=== PATIENT | female | born 1935 | race Two or more races ===

== ENCOUNTER 2020-08-31 19:25 | Emergency (ER) | payer MEDICARE, OTHER ==
[~2020-08-31] VITALS: Ht 157.5 cm; Wt 69.9 kg
--- NOTE | 2020-08-31 19:30 | NUR ---
PT WAS BIBRA FROM AN AL FOR C/O LOWER ABD PAIN AND DYSURIA. PT WAS TRANSFERRED TO BED 2. PLACED ON A MONITOR, VSS. WILL CONT TO MONITOR ,
[2020-08-31] MEDS ORDERED: METF-440 PO (19:45)
[2020-08-31] MEDS ORDERED: CARB-93 PO (19:45)
[2020-08-31] MEDS ORDERED: ASPI-1420 PO (19:45)
[2020-08-31] MEDS ORDERED: MEMA10TA PO (19:45)
[2020-08-31] MEDS ORDERED: FENO145T21 PO (19:45)
[2020-08-31] MEDS ORDERED: ALLO300T2 PO (19:45)
[2020-08-31] MEDS ORDERED: GLIM2TAB31 PO (19:45)
[2020-08-31] MEDS ORDERED: METO25TA6 PO (19:45)
[2020-08-31] MEDS ORDERED: DONE10TA44 PO (19:45)
[2020-08-31] MEDS ORDERED: SIMV-46 PO (19:45)
[2020-08-31] MEDS ORDERED: VALS1TAB4 PO (19:45)
[2020-08-31] MEDS ORDERED: ACETAMINOPHEN ES 500 MG TABLET ONE (19:53)
[2020-08-31] MEDS ORDERED: IV NS 0.9% 1,000 ML BAG IV ONE (20:00)
[2020-08-31] MEDS ORDERED: ACETAMINOPHEN ES 500 MG TABLET PO ONE (20:00)
[2020-08-31 20:05] LABS: BASOPHILS % (AUTO) 0.3 % (0.0-2.0); HEMATOCRIT 39 % (33-45); LYMPHOCYTES # (AUTO) 0.8 /CMM (0.8-4.8); LYMPHOCYTES % (AUTO) 7.9 % (20.0-44.0); MEAN CORPUSCULAR HGB CONC 34 g/dl (31.0-36.0); MEAN CORPUSCULAR VOLUME 91 fL (82-100); MONOCYTES # (AUTO) 0.9 /CMM (0.1-1.30); MONOCYTES % (AUTO) 8.7 % (2.0-12.0); NEUTROPHILS # (AUTO) 8.1 /CMM (1.8-8.9); NEUTROPHILS % (AUTO) 82.1 % (43.0-81.0); PLATELET COUNT (AUTO) 202 /CMM (150-450); RED BLOOD CELL COUNT(AUTO) 4.25 MIL/uL (4.0-5.2); WHITE BLOOD COUNT (AUTO) 9.9 K/uL (4.3-11.0)
--- NOTE | 2020-08-31 20:05 | NUR ---
X RAY AT BED SIDE
[2020-08-31 20:08] LABS: BILIRUBIN,URINE Negative (NEGATIVE); BLOOD, URINE Trace-lysed Ery/uL (NEGATIVE); COLOR,URINE Yellow (YELLOW); LEUKOCYTE ESTERASE ,URINE Small (NEGATIVE); NITRITE, URINE Positive (NEGATIVE); PH,URINE 5.5 (5.0-8.0); PROTEIN,URINE 30 mg/dl (NEGATIVE); UGLUCOSE Negative (NEGATIVE); UROBILINOGEN,URINE 0.2 EU/dL (0.2)
[2020-08-31 20:10] LABS: BACTERIA,URINE 3+ /HPF (None Seen); SQUAMOUS EPITHELIAL CELL,UR Few /HPF (None Seen)
[2020-08-31] MEDS ORDERED: CEFTRIAXONE 1GM BAG (ER ONLY) 1 GM/50 ML PIGGYBACK IV ONE (20:30)
--- NOTE | 2020-08-31 20:35 | NUR ---
PT PULLED OUT HER IV LINE. NEW PIV STARTED ON L WRIST 20G W. GOOD BLOOD RETURN
--- NOTE | 2020-08-31 20:35 | NUR ---
CALL FROM LAB. RAPID COVID NEGATIVE.
[2020-08-31 20:36] LABS: ALANINE AMINOTRANSFERASE 20 U/L (12-78); ALBUMIN 3.5 g/dL (3.4-5.0); ALKALINE PHOSPHATASE 21 U/L (46-116); ASPARTATE AMINOTRANSFERASE 20 U/L (15-37); BILIRUBIN,DIRECT 0.1 mg/dL (0.0-0.2); BILIRUBIN,TOTAL 0.3 mg/dL (0.2-1.0); CALCIUM, SERUM 9.9 mg/dL (8.5-10.1); CARBON DIOXIDE 29 mmol/L (21-32); CHLORIDE 103 mmol/L (98-107); CREATININE 1.3 mg/dL (0.6-1.3); GLUCOSE 213 mg/dL (74-106); LIPASE 332 U/L (73-393); POTASSIUM 4.3 mmol/L (3.5-5.1); SODIUM SERUM 138 mmol/L (136-145); TOTAL PROTEIN, SERUM 7.4 g/dL (6.4-8.2); UREA NITROGEN, BLOOD 25 mg/dL (7-18)
--- NOTE | 2020-08-31 20:43 | NUR ---
PT'S ID AND INSURANCE CARD GIVEN TO THE [facility] PHONE NUMBER: [phone]
--- NOTE | 2020-08-31 21:07 | NUR ---
CALLED DEVI, GRANDSON. PER HIM, PT LIVES AT HOME W/ FAMILY. DEVI WILL SLEEVE TURNER THE PT.
--- NOTE | 2020-08-31 22:01 | NUR ---
PT IS MEDICALLY STABLE FOR D/C. IV removed. Catheter intact and site benign. Pressure and 4x4 applied to site. No bleeding noted.Patient discharged to home in stable condition. Rx and Written and verbal after care instructions given tot he family who verbalizes understanding of instruction.
[2020-08-31 22:03] VITALS: BP 138/68
== END 2020-08-31 22:04 | disposition home or self-care (01) ==
LOC: ER 19:27
DX: N39.0 Urinary tract infection, site not specified (principal); Z20.828 Contact with and (suspected) exposure to other viral communicable diseases; I10 Essential (primary) hypertension; E11.9 Type 2 diabetes mellitus without complications; Z79.84 Long term (current) use of oral hypoglycemic drugs; Z79.82 Long term (current) use of aspirin; Z79.899 Other long term (current) drug therapy; F03.90 Unspecified dementia, unspecified severity, without behavioral disturbance, psychotic disturbance, mood disturbance, and anxiety
CPT/HCPCS: 36415; 71045; 80048; 80076; 81001; 83690; 84484; 85025; 87077; 87086; 87186; 87426; 96360; 96365; 99284; J0696; J7030; 81000-TC; C9803

== ENCOUNTER 2021-04-02 19:46 | Inpatient (IN) | payer MEDICARE, OTHER ==
[~2021-04-02] VITALS: Ht 165.1 cm; Wt 75.0 kg
[~2021-04-02 19:46] MED LIST: ALLO300T2 PO; ASPI-1420 PO; CARB-93 PO; DONE10TA44 PO; FENO145T21 PO; GLIM2TAB31 PO; MEMA10TA PO; METF-440 PO; METO25TA6 PO; SIMV-46 PO; VALS1TAB4 PO
[2021-04-02] MEDS ORDERED: IV NS 0.9% 1,000 ML BAG IV ONE ×2 (20:00→20:30)
--- NOTE | 2021-04-02 20:00 | NUR ---
PT BIBRA FROM HOME C/O INCREASED LETHARGY AND WEAKNESS. PT FEBRILE ON ARRIVAL. PT AWAKE, SMILING, NONVERBAL. RESPIRATIONS EVEN AND UNLABORED. NO ACUTE DISTRESS NOTED AT THIS TIME. PT PLACED IN GOWN AND ON MONITOR, WILL CONTINUE TO MONITOR
[2021-04-02 20:06] LABS: BASOPHILS % (AUTO) 0.3 % (0.0-2.0); EOSINOPHILS % (AUTO) 0.4 % (0.0-6.0); HEMATOCRIT 32 % (33-45); HEMOGLOBIN 10.7 g/dL (11.5-14.8); LYMPHOCYTES # (AUTO) 0.7 /CMM (0.8-4.8); LYMPHOCYTES % (AUTO) 9.6 % (20.0-44.0); MEAN CORPUSCULAR HGB CONC 34 g/dl (31.0-36.0); MEAN CORPUSCULAR VOLUME 93 fL (82-100); MONOCYTES # (AUTO) 0.5 /CMM (0.1-1.30); MONOCYTES % (AUTO) 7.7 % (2.0-12.0); NEUTROPHILS # (AUTO) 5.8 /CMM (1.8-8.9); PLATELET COUNT (AUTO) 125 /CMM (150-450); RED BLOOD CELL COUNT(AUTO) 3.41 MIL/uL (4.0-5.2)
--- NOTE | 2021-04-02 20:10 | NUR ---
urine collected and sent to the lab
[2021-04-02 20:16] LABS: CALCIUM, SERUM 8.6 mg/dL (8.5-10.1); CARBON DIOXIDE 26 mmol/L (21-32); CHLORIDE 98 mmol/L (98-107); CREATININE 1.6 mg/dL (0.6-1.3); GLUCOSE 244 mg/dL (74-106); POTASSIUM 3.9 mmol/L (3.5-5.1); SODIUM SERUM 134 mmol/L (136-145); UREA NITROGEN, BLOOD 44 mg/dL (7-18)
[2021-04-02 20:22] LABS: ALANINE AMINOTRANSFERASE < 6 U/L (12-78); ALBUMIN 2.6 g/dL (3.4-5.0); ALKALINE PHOSPHATASE 43 U/L (46-116); ASPARTATE AMINOTRANSFERASE 14 U/L (15-37); BILIRUBIN,DIRECT 0.1 mg/dL (0.0-0.2); BILIRUBIN,TOTAL 0.2 mg/dL (0.2-1.0); TOTAL PROTEIN, SERUM 6.9 g/dL (6.4-8.2)
[2021-04-02 20:23] LABS: BILIRUBIN,URINE Negative (NEGATIVE); COLOR,URINE YELLOW (YELLOW); LEUKOCYTE ESTERASE ,URINE Small (NEGATIVE); NITRITE, URINE Negative (NEGATIVE); PROTEIN,URINE 100 mg/dl (NEGATIVE); UGLUCOSE Negative (NEGATIVE); UROBILINOGEN,URINE 0.2 EU/dL (0.2)
--- NOTE | 2021-04-02 20:25 | NUR ---
COVID SWAB COLLECTED, CALLED LAB FOR SHIRRING MACHINE OPERATOR
--- NOTE | 2021-04-02 20:29 | NUR ---
DR. NINO PAGED PER REQUEST
[2021-04-02] MEDS ORDERED: CEFTRIAXONE 1GM BAG (ER ONLY) 1 GM/50 ML PIGGYBACK IV ONE (20:30)
[2021-04-02] MEDS ORDERED: ACETAMINOPHEN ES 500 MG TABLET PO ONE (20:30)
--- NOTE | 2021-04-02 20:31 | NUR ---
ER TALKING TO DR. NINO REGARDING PT ADMISSION.
[2021-04-02] MEDS ORDERED: ACETAMINOPHEN ES 500 MG TABLET ONE (20:32)
[2021-04-02] MEDS ORDERED: CEFTRIAXONE 1GM BAG (ER ONLY) 50 ML IV ONE (20:33)
[2021-04-02 20:45] LABS: BACTERIA,URINE 1+ /HPF (None Seen); SQUAMOUS EPITHELIAL CELL,UR Few /HPF (None Seen)
[2021-04-02] MEDS ORDERED: DEXTROSE 50%-WATER 50 ML DISP.SYRIN IV PRN (21:00)
--- NOTE | 2021-04-02 21:15 | NUR ---
M/S 325-2
--- NOTE | 2021-04-02 21:25 | NUR ---
REPORT CALLED TO M/S MAR MORENO. [facility] TRANSPORT PT TO M/S 325-2
[2021-04-02 21:40] VITALS: BP 115/64
--- NOTE | 2021-04-02 21:45 | NUR ---
PATIENT TAKEN UP TO TELE 325-2 FOR LINDA
--- NOTE | 2021-04-02 21:55 | NUR ---
EIGHT SECTION BLOWERACCOUNT OFFICER NOTES RECEIVED PATIENT AWAKE, PATIENT SPEAKS CHADIAN ONLY, ABLE TO FOLLOW SIMPLE COMMANDS. PER ED, RN, PATIENT'S BASELINE IS OFTEN CONFUSED (PER HER SON DUE TO DEMENTIA). PATIENT STABLE ON 2 LPM VIA NC, NO S/S OF DISTRESS OR SHORTNESS OF BREATH NOTED, SPO2 IS 97%. PATIENT ON TELE, NORMAL SINUS RHYTHM, HEART RATE 64. RIGHT FOREARM #18G INTACT AND FLUSHES WELL. SAFETY MEASURES IN PLACE, CALL LIGHT WITHIN REACH, SIDE RAILS UP X 3, HOB ELEVATED, BED ALARM ON. WILL CONTINUE TO MONITOR. WILL CONTINUE PLAN OF CARE
[2021-04-02] MEDS ORDERED: ONDANSETRON HCL/PF 4 MG/2 ML VIAL IV PRN (22:00)
[2021-04-02] MEDS: SIMVASTATIN 20 MG TABLET PO SCH (22:57)
[2021-04-02] MEDS: BLOOD SUGAR DIAGNOSTIC 1 EACH STRIP IN SCH (22:57)
[2021-04-02] MEDS: INSULIN REGULAR, HUMAN 100 UNIT/ML 3 ML VIAL SQ PRN (22:59)
[2021-04-02] MEDS: ENOXAPARIN SODIUM 30 MG/0.3 ML DISP.SYRIN SQ SCH (23:00)
[2021-04-02] MEDS: IV NS 0.9% 1,000 ML IV PRN (23:03)
[2021-04-03 00:15] VITALS: BP 112/67
[2021-04-03 06:47] LABS: BASOPHILS % (AUTO) 0.3 % (0.0-2.0); EOSINOPHILS % (AUTO) 0.9 % (0.0-6.0); HEMATOCRIT 33 % (33-45); HEMOGLOBIN 10.8 g/dL (11.5-14.8); LYMPHOCYTES % (AUTO) 16.5 % (20.0-44.0); MEAN CORPUSCULAR HGB CONC 32 g/dl (31.0-36.0); MEAN CORPUSCULAR VOLUME 98 fL (82-100); MONOCYTES # (AUTO) 0.5 /CMM (0.1-1.30); MONOCYTES % (AUTO) 7.4 % (2.0-12.0); NEUTROPHILS # (AUTO) 4.6 /CMM (1.8-8.9); NEUTROPHILS % (AUTO) 74.9 % (43.0-81.0); PLATELET COUNT (AUTO) 113 /CMM (150-450); RED BLOOD CELL COUNT(AUTO) 3.43 MIL/uL (4.0-5.2); WHITE BLOOD COUNT (AUTO) 6.2 K/uL (4.3-11.0)
--- NOTE | 2021-04-03 07:00 | NUR ---
ANESTHESIOLOGISTS' ASSISTANT CLOSING NOTES PATIENT RESTING IN BED, PATIENT SPEAKS GERMAN ONLY, ABLE TO FOLLOW SIMPLE COMMANDS. PATIENT APPEARS COMFORTABLE, NO S/S OF PAIN. PATIENT STABLE ON 2 LPM VIA NC, NO S/S OF DISTRESS OR SHORTNESS OF BREATH NOTED. PATIENT ON TELE, NORMAL SINUS RHYTHM, HEART RATE 84. RIGHT FOREARM #18G RUNNING NS @ 75 ML/HR. PATIENT HAS DVT PUMPS ON. MEDICATIONS GIVEN ORDERED. PATIENT NEEDS MET THROUGHOUT SHIFT. SAFETY MEASURES IN PLACE, CALL LIGHT WITHIN REACH, SIDE RAILS UP X 3, HOB ELEVATED, BED ALARM ON. ENDORSE TO DAY SHIFT NURSE FOR CONTINUITY OF CARE.
[2021-04-03 07:06] LABS: CALCIUM, SERUM 8.5 mg/dL (8.5-10.1); CARBON DIOXIDE 24 mmol/L (21-32); CHLORIDE 104 mmol/L (98-107); CREATININE 1.5 mg/dL (0.6-1.3); GLUCOSE 142 mg/dL (74-106); POTASSIUM 4.2 mmol/L (3.5-5.1); SODIUM SERUM 137 mmol/L (136-145); UREA NITROGEN, BLOOD 40 mg/dL (7-18)
[2021-04-03] MEDS: BLOOD SUGAR DIAGNOSTIC 1 EACH STRIP IN SCH ×4 (07:39→22:51)
[2021-04-03 08:00] VITALS: BP 144/73
[2021-04-03] MEDS: PANTOPRAZOLE 40 MG TABLET.DR PO SCH (08:09)
[2021-04-03] MEDS: GLIMEPIRIDE 1 MG TABLET PO SCH (08:11)
[2021-04-03] MEDS: MEMANTINE HCL 5 MG TABLET PO SCH (08:11)
[2021-04-03] MEDS: FENOFIBRATE NANOCRYS (145 MG) 145 MG TABLET PO SCH (08:11)
[2021-04-03] MEDS: DONEPEZIL 5 MG TABLET PO SCH (08:11)
[2021-04-03] MEDS: ASPIRIN EC 81 MG TABLET.DR PO SCH (08:11)
--- NOTE | 2021-04-03 08:11 | NUR ---
WOUND CARE CONSULT: PT PRESENTS WITH LEFT BREASTFOLD RASH, PRESENT ON ADMISSION. RECOMMENDATIONS MADE FOR SKIN PROTECTION. DISCUSSED WITH NURSING STAFF. PT IS INCONTINENT. IN AGREEMENT WITH PLAN OF CARE. Addendum: 04/03/21 at 0812 by IVETT DUFFY WNDNU Amended: Links added.
[2021-04-03] MEDS: ALLOPURINOL 100 MG TABLET PO SCH (08:12)
[2021-04-03] MEDS: CARBIDOPA/LEVODOPA 25/100 MG 1 UDTAB PO SCH ×3 (08:12→16:07)
[2021-04-03] MEDS: VALSARTAN 80 MG TABLET PO SCH (08:13)
[2021-04-03] MEDS: METOPROLOL TARTRATE 25 MG TABLET PO SCH ×2 (08:14→22:18)
[2021-04-03] MEDS: HYDROCHLOROTHIAZIDE 25 MG TABLET PO SCH (08:14)
[2021-04-03] MEDS ORDERED: Z GUARD REMEDY 2 OZ OINT TP PRN (08:30)
[2021-04-03] MEDS ORDERED: METFORMIN 500 MG TABLET PO SCH (09:00)
[2021-04-03] MEDS: CLOTRIMAZOLE 1% 15 GM TUBE TP SCH ×2 (09:49→16:07)
[2021-04-03] MEDS: Z GUARD REMEDY 2 OZ OINT TP SCH (09:49)
[2021-04-03] MEDS: NITROGLYCERIN 0.4 MG/HR PATCH.TD24 TD SCH (10:08)
--- NOTE | 2021-04-03 10:14 | NUR ---
INHALATION THERAPIST NOTE APPLIED NITRO PATCH @ 1012
[2021-04-03] MEDS: ACETAMINOPHEN 325 MG TABLET PO PRN ×2 (11:55→22:15)
--- NOTE | 2021-04-03 11:55 | NUR ---
EXECUTIVE ADMIN NOTE BARCODE WOULD NOT SCAN FOR TYLENOL - GAVE 650MG ACETAMINOPHEN FOR LOW GRADE FEVER - 99.8
[2021-04-03] MEDS: INSULIN REGULAR, HUMAN 100 UNIT/ML 3 ML VIAL SQ PRN (12:15)
[2021-04-03 12:36] VITALS: BP 142/81
[2021-04-03] MEDS: IV NS 0.9% 1,000 ML IV PRN (12:56)
[2021-04-03 16:02] VITALS: BP 119/77
--- NOTE | 2021-04-03 18:38 | NUR ---
SCREEN WRITER CLOSING NOTES PATIENT CURRENTLY RESTING IN BED, PATIENT SPEAKS PERSIAN ONLY, ABLE TO UNDERSTAND SOME ARABIC AND YES/NO QUESTIONS. A/O X1. ON 2 LPM VIA NC - TOLERATING WELL, NO SOB NOTED. PATIENT ON TELE MONITOR, NORMAL SINUS RHYTHM, HEART RATE 88. IV ACCESS TO RIGHT FOREARM #18 - PATENT AND INTACT - RUNNING NS @ 75 ML/HR. DIET CHANGED TO PUREED - PATIENT WAS NOT CHEWING FOOD. WOUND CARE DONE. SAFETY MEASURES IN PLACE. CALL LIGHT WITHIN REACH. WILL ENDORSE TO MOBILE PAINT SPECIALIST NURSE FOR LINDA.
[2021-04-03 20:00] VITALS: BP 116/62
--- NOTE | 2021-04-03 20:00 | NUR ---
REMEDY DEVELOPER OPENING NOTES PATIENT RESTING IN BED, PATIENT SPEAKS PUERTO RICAN ONLY, ABLE TO FOLLOW SIMPLE COMMANDS. PATIENT APPEARS COMFORTABLE, NO S/S OF PAIN. PATIENT STABLE ON 2 LPM VIA NC, NO S/S OF DISTRESS OR SHORTNESS OF BREATH NOTED. PATIENT ON TELE, NORMAL SINUS RHYTHM WITH PAC'S, HEART RATE 87. RIGHT FOREARM #18G RUNNING NS @ 75 ML/HR. PATIENT HAS DVT PUMPS ON. SAFETY MEASURES IN PLACE, CALL LIGHT WITHIN REACH, SIDE RAILS UP X 3, HOB ELEVATED, BED ALARM ON. WILL CONTINUE TO MONITOR. WILL CONTINUE PLAN OF CARE
[2021-04-03] MEDS ORDERED: CEFTRIAXONE 1 G in IV D5W 50 ML IV SCH (21:00)
[2021-04-03] MEDS ORDERED: CEFTRIAXONE 2 G in IV D5W 50 ML IV SCH (21:00)
[2021-04-03] MEDS: CEFTRIAXONE 2 G in IV D5W 100 ML IV SCH (22:14)
[2021-04-03] MEDS: SIMVASTATIN 20 MG TABLET PO SCH (22:15)
[2021-04-03] MEDS: ENOXAPARIN SODIUM 30 MG/0.3 ML DISP.SYRIN SQ SCH (22:21)
--- NOTE | 2021-04-03 22:41 | NUR ---
FORM SETTER METAL ROAD FORMS NOTES PATIENT'S BLOOD SUGAR IS 51, RECHECKED RIGHT AWAY AND IT WAS 49. GAVE ORANGE JUICE, WILL RECHECK IN 15 MINS
--- NOTE | 2021-04-03 22:56 | NUR ---
BINDER CHAINSTITCH NOTES RECHECKED PATIENT'S BLOOD SUGAR AND IT IS NOW 76. WILL CONTINUE TO MONITOR
[2021-04-04] VITALS (7 sets, daily range): BP systolic 113–152; BP diastolic 58–86
[2021-04-04 06:02] LABS: BASOPHILS % (AUTO) 0.3 % (0.0-2.0); EOSINOPHILS % (AUTO) 1.3 % (0.0-6.0); HEMATOCRIT 29 % (33-45); HEMOGLOBIN 9.9 g/dL (11.5-14.8); LYMPHOCYTES % (AUTO) 15.7 % (20.0-44.0); MEAN CORPUSCULAR HGB CONC 34 g/dl (31.0-36.0); MEAN CORPUSCULAR VOLUME 92 fL (82-100); MONOCYTES # (AUTO) 0.8 /CMM (0.1-1.30); MONOCYTES % (AUTO) 12.5 % (2.0-12.0); NEUTROPHILS # (AUTO) 4.5 /CMM (1.8-8.9); NEUTROPHILS % (AUTO) 70.2 % (43.0-81.0); PLATELET COUNT (AUTO) 152 /CMM (150-450); RED BLOOD CELL COUNT(AUTO) 3.14 MIL/uL (4.0-5.2); WHITE BLOOD COUNT (AUTO) 6.4 K/uL (4.3-11.0)
[2021-04-04 06:17] LABS: ALBUMIN 2.4 g/dL (3.4-5.0); BILIRUBIN,TOTAL 0.2 mg/dL (0.2-1.0); CALCIUM, SERUM 8.4 mg/dL (8.5-10.1); CREATININE 1.1 mg/dL (0.6-1.3); MAGNESIUM 1.9 mg/dL (1.8-2.4); PHOSPHORUS 1.8 mg/dL (2.5-4.9); POTASSIUM 3.5 mmol/L (3.5-5.1); TOTAL PROTEIN, SERUM 6.5 g/dL (6.4-8.2)
--- NOTE | 2021-04-04 06:40 | NUR ---
MS RN NOTES PATIENT'S BLOOD SUGAR IS 49. GAVE ORANGE JUICE, WILL RECHECK AND CONTINUE TO MONITOR
[2021-04-04] MEDS: BLOOD SUGAR DIAGNOSTIC 1 EACH STRIP IN SCH ×4 (06:45→21:09)
[2021-04-04] MEDS: IV NS 0.9% 1,000 ML IV PRN ×2 (06:45→11:35)
--- NOTE | 2021-04-04 06:55 | NUR ---
MS RN NOTE RECHECKED PATIENT'S BLOOD SUGAR. BLOOD SUGAR NOW 79. WILL CONTINUE TO MONITOR
--- NOTE | 2021-04-04 07:05 | NUR ---
NAVAL AIRCREWMAN OPENING NOTES RECEIVED PATIENT AWAKE AND RESTING IN BED, PATIENT ONLY SPEAKS ARMENIA, ABLE TO FOLLOW SIMPLE COMMANDS. PT SHOWS NO SIGNS OF SOB PATIENT IS STABLE ON NC 2 LPM PATIENT IS SINUS RHYTMN WITH WITH PAC AT 76 RIGHT FOREARM . RFA G#18 NS @ 75 ML/HR. PATIENT HAS DVT PUMPS ON. SAFETY MEASURES IN PLACE, CALL LIGHT AND TABLE WITHIN REACH, SIDE RAILS UP X 2, HOB ELEVATED, BED ALARM ON. WILL CONTINUE TO MONITOR. WILL CONTINUE
--- NOTE | 2021-04-04 07:13 | NUR ---
LABORER HOISTING CLOSING NOTES PATIENT RESTING IN BED, PATIENT SPEAKS TRISTANIAN ONLY, ABLE TO FOLLOW SIMPLE COMMANDS. PATIENT APPEARS COMFORTABLE, NO S/S OF PAIN. PATIENT STABLE ON 2 LPM VIA NC, NO S/S OF DISTRESS OR SHORTNESS OF BREATH NOTED. PATIENT ON TELE, SINUS RHYTHM WITH PAC, HEART RATE 67. RIGHT FOREARM #18G RUNNING NS @ 75 ML/HR. PATIENT HAS DVT PUMPS ON. MEDICATIONS GIVEN ORDERED. PATIENT NEEDS MET THROUGHOUT SHIFT. SAFETY MEASURES IN PLACE, CALL LIGHT WITHIN REACH, SIDE RAILS UP X 3, HOB ELEVATED, BED ALARM ON. ENDORSE TO DAY SHIFT NURSE FOR CONTINUITY OF CARE.
--- NOTE | 2021-04-04 07:45 | NUR ---
PT NOTED WITH TEMP OF 99.0 AT THIS TIME. COOLING MEASURES IN PLACE, ICE PACK UNDER ARMS, ROOM KEPT COOL, SHEETS UNCOVERED. WILL CONTINUE TO MONITOR
[2021-04-04] MEDS: PANTOPRAZOLE 40 MG TABLET.DR PO SCH (08:31)
[2021-04-04] MEDS: ACETAMINOPHEN 325 MG TABLET PO PRN ×2 (08:35→21:09)
[2021-04-04] MEDS: ASPIRIN EC 81 MG TABLET.DR PO SCH (08:35)
[2021-04-04] MEDS: DONEPEZIL 5 MG TABLET PO SCH (08:35)
[2021-04-04] MEDS: VALSARTAN 80 MG TABLET PO SCH (08:35)
[2021-04-04] MEDS: CARBIDOPA/LEVODOPA 25/100 MG 1 UDTAB PO SCH ×3 (08:35→16:50)
[2021-04-04] MEDS: FENOFIBRATE NANOCRYS (145 MG) 145 MG TABLET PO SCH (08:35)
[2021-04-04] MEDS: ALLOPURINOL 100 MG TABLET PO SCH (08:35)
--- NOTE | 2021-04-04 08:35 | NUR ---
RECHECKED TEMPERATURE AFTER COOLING MEASURES, TEMP OF 100.2. COOLING MEASURES IN PLACE, ICE PACK IN ARMPIT, ROOM KEPT COOL, SHEETS REMOVED, TYLENOL 650MG PO Q6H PRN FOR FEVER ADMINISTERED AT THIS TIME PER ORDER, WILL CONTINUE TO MONITOR
[2021-04-04] MEDS: HYDROCHLOROTHIAZIDE 25 MG TABLET PO SCH (08:36)
[2021-04-04] MEDS: MEMANTINE HCL 5 MG TABLET PO SCH (08:37)
[2021-04-04] MEDS: GLIMEPIRIDE 1 MG TABLET PO SCH (08:37)
[2021-04-04] MEDS: METOPROLOL TARTRATE 25 MG TABLET PO SCH ×2 (08:37→21:09)
[2021-04-04] MEDS: CLOTRIMAZOLE 1% 15 GM TUBE TP SCH ×2 (08:39→16:51)
[2021-04-04] MEDS: Z GUARD REMEDY 2 OZ OINT TP SCH (08:40)
--- NOTE | 2021-04-04 09:35 | NUR ---
RECHECKED TEMPERATURE AT THIS TIME. TEMP OF 98.9, COOLING MEASURES. COOLING MEASURES IN PLACE, ICE PACK IN ARMPIT, ROOM KEPT COOL, SHEETS REMOVED, TYLENOL 650MG PO Q6H PRN FOR FEVER ADMINISTERED AT THIS TIME PER ORDER, WILL CONTINUE TO MONITOR
[2021-04-04] MEDS: NITROGLYCERIN 0.4 MG/HR PATCH.TD24 TD SCH (10:22)
[2021-04-04] MEDS: POTASSIUM PHOSPHATE MM 5 MMOL in IV NS 0.9% 100 ML IV SCH ×3 (11:39→15:28)
--- NOTE | 2021-04-04 17:45 | NUR ---
BLOOD SUGAR OF 46, DEXTROSE 50ML IV ACHS PRN FOR BLOOD SUGAR = OR < 60 ADMINISTERED. REASSESSED BLOOD SUGAR AT THIS TIME. BLOOD SUGAR OF 179. WILL CONTINUE TO MONITOR
--- NOTE | 2021-04-04 18:08 | NUR ---
PROPERTY CARETAKER CLOSING NOTES PT AWAKE IN BED AT THIS TIME WITH FAMILY AT BEDSIDE. PT REMAINED STABLE THROUGHOUT SHIFT. PT KEPT CLEAN AND DRY.PT REPOSITIONED Q2H AND PRN. WOUND CARE ADMINISTERED.SAFETY PRECAUTIONS IN PLACE AND MAINTAINED AT ALL TIMES. BED IN LOWEST LOCKED POSITION, HOB ELEVATED, SIDE RAILS UP X 2. CALL LIGHT AND TABLE WITHIN REACH. WILL ENDORSE TO ULTRASOUND SPECIALIST NURSE FOR LINDA
--- NOTE | 2021-04-04 20:00 | NUR ---
TRACTOR MECHANIC HELPER OPENING NOTES Patient awake, A&Ox1. Slightly warm to touch -cooling measures in place. No signs of pain or discomfort noted. No signs of distress. Will continue to monitor.
[2021-04-04] MEDS: CEFTRIAXONE 2 G in IV D5W 100 ML IV SCH (20:57)
[2021-04-04] MEDS: SIMVASTATIN 20 MG TABLET PO SCH (21:09)
[2021-04-04] MEDS: ENOXAPARIN SODIUM 30 MG/0.3 ML DISP.SYRIN SQ SCH (21:10)
--- NOTE | 2021-04-04 21:10 | NUR ---
Patient given PRN Tylenol. Pt was seen by nurse moaning, restless, with facial grimacing for a FLACC score of 3. 1 hour after administration, patient was resting in bed comfortably.
--- NOTE | 2021-04-04 22:00 | NUR ---
BS 90, applesauce given as snack prior to sleep.
[2021-04-05] VITALS: BP 123/62
[2021-04-05 04:00] VITALS: BP 132/76
[2021-04-05] MEDS: IV NS 0.9% 1,000 ML IV PRN (06:09)
[2021-04-05 06:44] LABS: BASOPHILS % (AUTO) 0.5 % (0.0-2.0); EOSINOPHILS % (AUTO) 4.1 % (0.0-6.0); HEMATOCRIT 32 % (33-45); HEMOGLOBIN 10.4 g/dL (11.5-14.8); LYMPHOCYTES # (AUTO) 1.4 /CMM (0.8-4.8); LYMPHOCYTES % (AUTO) 18.6 % (20.0-44.0); MEAN CORPUSCULAR HGB CONC 33 g/dl (31.0-36.0); MEAN CORPUSCULAR VOLUME 93 fL (82-100); MONOCYTES # (AUTO) 0.9 /CMM (0.1-1.30); MONOCYTES % (AUTO) 11.7 % (2.0-12.0); NEUTROPHILS # (AUTO) 4.7 /CMM (1.8-8.9); NEUTROPHILS % (AUTO) 65.1 % (43.0-81.0); PLATELET COUNT (AUTO) 192 /CMM (150-450); RED BLOOD CELL COUNT(AUTO) 3.39 MIL/uL (4.0-5.2); WHITE BLOOD COUNT (AUTO) 7.3 K/uL (4.3-11.0)
--- NOTE | 2021-04-05 06:58 | NUR ---
A&Ox1. VSS. No hypo or hyperglycemic reactions noted. Tolerating IV ABX well, no adverse side effects. Safety measures in place. Patient kept safe overnight. Turn q2H kept clean and dry. On monitor showing SR with PACs.
[2021-04-05] MEDS: BLOOD SUGAR DIAGNOSTIC 1 EACH STRIP IN SCH ×4 (07:15→22:26)
--- NOTE | 2021-04-05 07:33 | NUR ---
SOLDER TECHNICIAN OPENING NOTES RECEIVED PATIENT AWAKE AND RESTING IN BED, PATIENT ONLY SPEAKS PRIMARILY MONGOLIAN, BUT ABLE TO FOLLOW SIMPLE COMMANDS. PATIENT IS A/O X1. PATIENT IS BREATHING EVENLY AND NONLABORED SHOWING NO SIGNS OF SOB OR DISTRESS, STABLE ON NC 2 LPM . PATIENT IS SINUS RHYTHM WITH WITH PAC AT 76. IV ACCESS IN PLACE ON RFA G#18 RUNNING NS @ 40 ML/HR. PATIENT HAS DVT PUMPS ON. SAFETY MEASURES IN PLACE, CALL LIGHT AND TABLE WITHIN REACH, SIDE RAILS UP X 2, HOB ELEVATED, BED ALARM ON. WILL CONTINUE TO MONITOR.
[2021-04-05 07:51] LABS: ALBUMIN 2.3 g/dL (3.4-5.0); BILIRUBIN,TOTAL 0.2 mg/dL (0.2-1.0); CALCIUM, SERUM 8.4 mg/dL (8.5-10.1); MAGNESIUM 1.7 mg/dL (1.8-2.4); PHOSPHORUS 2.2 mg/dL (2.5-4.9); POTASSIUM 3.7 mmol/L (3.5-5.1); TOTAL PROTEIN, SERUM 6.8 g/dL (6.4-8.2)
[2021-04-05 08:06] LABS: PTH, INTACT 80 pg/mL (15-65)
[2021-04-05] MEDS: ALLOPURINOL 100 MG TABLET PO SCH (08:14)
[2021-04-05] MEDS: CARBIDOPA/LEVODOPA 25/100 MG 1 UDTAB PO SCH ×3 (08:14→16:28)
[2021-04-05] MEDS: VALSARTAN 80 MG TABLET PO SCH (08:17)
[2021-04-05] MEDS: PANTOPRAZOLE 40 MG TABLET.DR PO SCH (08:17)
[2021-04-05] MEDS: ASPIRIN EC 81 MG TABLET.DR PO SCH (08:18)
[2021-04-05] MEDS: MEMANTINE HCL 5 MG TABLET PO SCH (08:18)
[2021-04-05] MEDS: FENOFIBRATE NANOCRYS (145 MG) 145 MG TABLET PO SCH (08:18)
[2021-04-05] MEDS: METOPROLOL TARTRATE 25 MG TABLET PO SCH ×2 (08:18→21:18)
[2021-04-05] MEDS: HYDROCHLOROTHIAZIDE 25 MG TABLET PO SCH (08:18)
[2021-04-05] MEDS: DONEPEZIL 5 MG TABLET PO SCH (08:18)
[2021-04-05] MEDS: GLIMEPIRIDE 1 MG TABLET PO SCH (08:18)
[2021-04-05] MEDS: Z GUARD REMEDY 2 OZ OINT TP SCH (08:23)
[2021-04-05] MEDS ORDERED: K PHOS NEUTRAL 250 MG TABLET PO ONE (08:30)
[2021-04-05] MEDS ORDERED: MAGNESIUM OXIDE 400 MG TABLET PO ONE (08:30)
[2021-04-05 08:31] VITALS: BP 138/68
[2021-04-05] MEDS: NITROGLYCERIN 0.4 MG/HR PATCH.TD24 TD SCH (08:39)
[2021-04-05] MEDS: CLOTRIMAZOLE 1% 15 GM TUBE TP SCH ×2 (09:39→16:28)
--- NOTE | 2021-04-05 11:00 | NUR ---
RN NOTES PATIENTS BLOOD GLUCOSE WAS 193, 3 UNITS OF INSULIN GIVEN.
[2021-04-05] MEDS: INSULIN REGULAR, HUMAN 100 UNIT/ML 3 ML VIAL SQ PRN ×3 (11:08→22:27)
[2021-04-05 16:09] VITALS: BP 147/76
--- NOTE | 2021-04-05 16:30 | NUR ---
RN NOTES PATIENTS BLOOD GLUCOSE WAS 169, 3 UNITS OF INSULIN GIVEN.
--- NOTE | 2021-04-05 18:35 | NUR ---
MS RN CLOSING NOTES PATIENT AWAKE AND RESTING IN BED, PATIENT SPEAKS PRIMARILY BELARUSIAN, BUT ABLE TO FOLLOW SIMPLE COMMANDS. PATIENT IS A/O X1. PATIENT IS BREATHING EVENLY AND NONLABORED SHOWING NO SIGNS OF SOB OR DISTRESS, STABLE ON NC 2 LPM. IV ACCESS IN PLACE ON RFA G#18 RUNNING NS @ 40 ML/HR. PATIENT HAS DVT PUMPS ON. SAFETY MEASURES IN PLACE, CALL LIGHT AND TABLE WITHIN REACH, SIDE RAILS UP X 2, HOB ELEVATED, BED ALARM ON. WILL ENDORSE TO ONCOMING SHIFT
--- NOTE | 2021-04-05 20:00 | NUR ---
MS RN OPENING NOTES Patient is awake, A&Ox1. Patient does not talk but yells out and laughs frequently without being prompted. No signs of distress. Continue with aspiration and fall precautions. All safety measures in place. HOB >45, bed locked, in lowest position, bed alarm on. IV patent and infusing IV NS at 40cc/hr.
[2021-04-05 20:22] VITALS: BP 141/62
[2021-04-05] MEDS: SIMVASTATIN 20 MG TABLET PO SCH (21:18)
[2021-04-05] MEDS: CEFTRIAXONE 2 G in IV D5W 100 ML IV SCH (21:18)
[2021-04-05] MEDS: ENOXAPARIN SODIUM 30 MG/0.3 ML DISP.SYRIN SQ SCH (21:19)
--- NOTE | 2021-04-05 23:00 | NUR ---
RN NOTES Patient pulled out IV. New IV inserted to L wrist. Taped down and wrapped with kerlix.
--- NOTE | 2021-04-06 06:04 | NUR ---
MS RN CLOSING NOTES Patient is A&Ox1. VSS. Awake most of the night but not in distress. Occasionally pulls of O2 but saturation still at 93-94%, no SOB. Episodes of yelling when touched even softly, laughing at inappropriate times. Treatment to L underbreast done as ordered, much improved since admission photo. Tolerated crushed meds and applesauce as snack. No hypo or hyperglycemic reactions noted. L wrist #22G IV intact and infusing IVF. All safety measures in place. Call light within reach, bed in lowest position, HOB >30, bed brakes on, bed alarm on. Turned q2h, kept clean and dry. All needs met by staff.
[2021-04-06] MEDS: BLOOD SUGAR DIAGNOSTIC 1 EACH STRIP IN SCH ×4 (06:30→22:00)
[2021-04-06 06:55] LABS: BASOPHILS % (AUTO) 0.4 % (0.0-2.0); EOSINOPHILS % (AUTO) 2.7 % (0.0-6.0); HEMATOCRIT 32 % (33-45); HEMOGLOBIN 10.7 g/dL (11.5-14.8); LYMPHOCYTES # (AUTO) 1.5 /CMM (0.8-4.8); LYMPHOCYTES % (AUTO) 17.9 % (20.0-44.0); MEAN CORPUSCULAR HGB CONC 34 g/dl (31.0-36.0); MEAN CORPUSCULAR VOLUME 92 fL (82-100); MONOCYTES # (AUTO) 0.8 /CMM (0.1-1.30); MONOCYTES % (AUTO) 9.7 % (2.0-12.0); NEUTROPHILS # (AUTO) 5.9 /CMM (1.8-8.9); NEUTROPHILS % (AUTO) 69.3 % (43.0-81.0); PLATELET COUNT (AUTO) 236 /CMM (150-450); RED BLOOD CELL COUNT(AUTO) 3.43 MIL/uL (4.0-5.2); WHITE BLOOD COUNT (AUTO) 8.4 K/uL (4.3-11.0)
--- NOTE | 2021-04-06 07:16 | NUR ---
MS RN OPENING NOTES RECEIVED PATIENT AWAKE AND RESTING IN BED, PATIENT ONLY SPEAKS PRIMARILY SPANISH, BUT ABLE TO FOLLOW SIMPLE COMMANDS. PATIENT IS A/O X1. PATIENT IS BREATHING EVENLY AND NONLABORED SHOWING NO SIGNS OF SOB OR DISTRESS, STABLE ON NC 2 LPM. IV ACCESS IN PLACE ON RFA G#18 PATENT AND INTACT. PATIENT HAS DVT PUMPS ON. SAFETY MEASURES IN PLACE, CALL LIGHT AND TABLE WITHIN REACH, SIDE RAILS UP X 2, HOB ELEVATED, BED ALARM ON. WILL CONTINUE TO MONITOR. Addendum: 04/06/21 at 1834 by YASIR JIMENEZ RN IV ACCESS ON L WRIST 22 GAUGE
[2021-04-06 07:28] LABS: CALCIUM, SERUM 8.4 mg/dL (8.5-10.1); CREATININE 0.9 mg/dL (0.6-1.3); MAGNESIUM 1.7 mg/dL (1.8-2.4); PHOSPHORUS 2.5 mg/dL (2.5-4.9); POTASSIUM 4.2 mmol/L (3.5-5.1)
[2021-04-06] MEDS: PANTOPRAZOLE 40 MG TABLET.DR PO SCH (07:52)
[2021-04-06] MEDS: MEMANTINE HCL 5 MG TABLET PO SCH (08:03)
[2021-04-06] MEDS: ASPIRIN EC 81 MG TABLET.DR PO SCH (08:03)
[2021-04-06] MEDS: GLIMEPIRIDE 1 MG TABLET PO SCH (08:03)
[2021-04-06] MEDS: CARBIDOPA/LEVODOPA 25/100 MG 1 UDTAB PO SCH ×3 (08:04→16:30)
[2021-04-06] MEDS: ALLOPURINOL 100 MG TABLET PO SCH (08:04)
[2021-04-06] MEDS: VALSARTAN 80 MG TABLET PO SCH (08:04)
[2021-04-06] MEDS: FENOFIBRATE NANOCRYS (145 MG) 145 MG TABLET PO SCH (08:04)
[2021-04-06] MEDS: DONEPEZIL 5 MG TABLET PO SCH (08:04)
[2021-04-06] MEDS: METOPROLOL TARTRATE 25 MG TABLET PO SCH ×2 (08:05→22:31)
[2021-04-06] MEDS: HYDROCHLOROTHIAZIDE 25 MG TABLET PO SCH (08:05)
[2021-04-06] MEDS: CLOTRIMAZOLE 1% 15 GM TUBE TP SCH ×2 (08:06→16:49)
[2021-04-06] MEDS: Z GUARD REMEDY 2 OZ OINT TP SCH (08:06)
[2021-04-06 08:25] VITALS: BP 130/78
[2021-04-06] MEDS: NITROGLYCERIN 0.4 MG/HR PATCH.TD24 TD SCH (08:30)
[2021-04-06] MEDS: Magnesium 1GM/D5W 100ML PREMIX 100 ML IV SCH ×2 (10:05→11:14)
[2021-04-06] MEDS: IV NS 0.9% 1,000 ML IV PRN (10:15)
--- NOTE | 2021-04-06 11:00 | NUR ---
RN NOTES PATIENTS BLOOD GLUCOSE WAS 131, 2 UNITS OF INSULIN GIVEN.
[2021-04-06] MEDS: INSULIN REGULAR, HUMAN 100 UNIT/ML 3 ML VIAL SQ PRN ×2 (11:15→16:49)
[2021-04-06 14:07] LABS: *SPE A/G RATIO 0.7 (0.7-1.7); *SPE ALBUMIN 2.4 g/dL (2.9-4.4); *SPE ALPHA-1-GLOBULIN 0.3 g/dL (0.0-0.4); *SPE ALPHA-2-GLOBULIN 1.4 g/dL (0.4-1.0); *SPE GLOBULIN, TOTAL 3.3 g/dL (2.2-3.9); *SPE M-SPIKE Not Observed g/dL (Not Observed); *SPEGAMMA GLOBULIN 0.6 g/dL (0.4-1.8)
[2021-04-06 16:26] VITALS: BP 138/67
--- NOTE | 2021-04-06 17:15 | NUR ---
RN NOTES PATIENTS BLOOD GLUCOSE WAS 175, 3 UNITS OF INSULIN GIVEN.
--- NOTE | 2021-04-06 18:33 | NUR ---
MS RN CLOSING NOTES PATIENT AWAKE AND RESTING IN BED, PATIENT SPEAKS PRIMARILY PASHTO, BUT ABLE TO FOLLOW SIMPLE COMMANDS. PATIENT IS A/O X1. PATIENT IS BREATHING EVENLY AND NONLABORED SHOWING NO SIGNS OF SOB OR DISTRESS, STABLE ON NC 2 LPM[address] IV ACCESS IN PLACE ON RFA G#18 RUNNING NS @ 40 ML/HR. ALL MEDICATION GIVEN ORDERED. PATIENT HAS DVT PUMPS ON. SAFETY MEASURES IN PLACE, CALL LIGHT AND TABLE WITHIN REACH, SIDE RAILS UP X 2, HOB ELEVATED, BED ALARM ON. WILL ENDORSE TO ONCOMING SHIFT Addendum: 04/06/21 at 1834 by YASIR JIMENEZ RN IV ACCESS ON L WRIST 22 GAUGE
[2021-04-06 20:00] VITALS: BP 139/79
--- NOTE | 2021-04-06 22:01 | NUR ---
MS RN OPENING NOTES: RECEIVED PATIENT SLEEP IN BED COMFORTABLY, AROUSAVBLE TO VERBAL STIMULI, BED IN LOW POSITION, CALL LIGHTAS WITHIN REACH, NO COMPLAIN OF PAIN AND DISCOMFORT AT THIS TIME, A/O X1, ON BR INCONTINENT, WITH LEFT BREAST REDNESS, ON PUREE DIET CRUSSH MEDICATION, WITH L WRIST IV LINE #22 INFUSING WELL, ON BLOOD SUGAR MONITORING , ON O2 INHALATION AT 98% NO SOB OR ANY RESPIRATORY DISTRESS WAS OBSERVED, HOB AT 30 DEGREE, ALL NEEDS ARE MET, KEPT CLEAN AND DRY, WILL CONTINUE TO MONITOR.
--- NOTE | 2021-04-06 22:22 | NUR ---
MAR NOTES: PATIENT COMPLAIN OF ABDONIMAL PAIN PS-9 DILAUDID GIVEN Addendum: 04/07/21 at 0359 by JORGE TIDWELL RN WRONG DOCUMENTATION FOR PATIENT 323-2 YAMILETH CARBONE
[2021-04-06] MEDS: CEFTRIAXONE 2 G in IV D5W 100 ML IV SCH (22:30)
[2021-04-06] MEDS: SIMVASTATIN 20 MG TABLET PO SCH (22:30)
[2021-04-06] MEDS: ENOXAPARIN SODIUM 30 MG/0.3 ML DISP.SYRIN SQ SCH (22:32)
[2021-04-07] MEDS: INSULIN REGULAR, HUMAN 100 UNIT/ML 3 ML VIAL SQ PRN ×3 (00:02→16:48)
[2021-04-07 06:38] LABS: CALCIUM, SERUM 8.9 mg/dL (8.5-10.1); CREATININE 0.9 mg/dL (0.6-1.3); MAGNESIUM 1.8 mg/dL (1.8-2.4); POTASSIUM 4.4 mmol/L (3.5-5.1)
--- NOTE | 2021-04-07 07:35 | NUR ---
RN CLOSING NOTES: RECEIVED PATIENT SLEEP IN BED COMFORTABLY, AROUSABLE TO STIMULI, NO COMPLAIN OF PAIN AND DISCOMFORT AT THIS TIME ON IV HYDRATION OF 0.96NN@40ML/HR INFUSING WELL, PATIENT TURN FROM SIDE TO SIDE, BED IS IN LOW POSITION, CALL LIGHTS WITHIN REACH, ENDORSE TO INCOMING SHIFT.
--- NOTE | 2021-04-07 07:43 | NUR ---
MS RN OPENING NOTES RECEIVED PATIENT LYING IN BED, RESTING. AROUSES WHEN ANYONE IS SPEAKING. A/O X1. ON 2LPM OXYGEN PER NASAL CANNULA - TOLERATING WELL. NO SOB NOTED. NO PAIN NOTED AT THIS TIME. TOP DENTURE NOTED, BOTTOM DENTURE IN BEDSIDE CONTAINER. IV ACCESS TO LEFT WRIST #22 - INTACT AND WRAPPED WITH KERLIX - RUNNING NS @ 40ML/HR. SAFETY MEASURES IN PLACE. CALL LIGHT WITHIN REACH. WILL CONTINUE TO MONITOR.
[2021-04-07] MEDS: BLOOD SUGAR DIAGNOSTIC 1 EACH STRIP IN SCH ×4 (07:48→22:24)
[2021-04-07 08:00] VITALS: BP 131/63
[2021-04-07] MEDS: PANTOPRAZOLE 40 MG TABLET.DR PO SCH (08:19)
[2021-04-07] MEDS: HYDROCHLOROTHIAZIDE 25 MG TABLET PO SCH (08:46)
[2021-04-07] MEDS: CARBIDOPA/LEVODOPA 25/100 MG 1 UDTAB PO SCH ×3 (08:47→16:36)
[2021-04-07] MEDS: VALSARTAN 80 MG TABLET PO SCH (08:47)
[2021-04-07] MEDS: GLIMEPIRIDE 1 MG TABLET PO SCH (08:47)
[2021-04-07] MEDS: ALLOPURINOL 100 MG TABLET PO SCH (08:47)
[2021-04-07] MEDS: FENOFIBRATE NANOCRYS (145 MG) 145 MG TABLET PO SCH (08:47)
[2021-04-07] MEDS: MEMANTINE HCL 5 MG TABLET PO SCH (08:47)
[2021-04-07] MEDS: ASPIRIN EC 81 MG TABLET.DR PO SCH (08:48)
[2021-04-07] MEDS: METOPROLOL TARTRATE 25 MG TABLET PO SCH ×2 (08:48→21:00)
[2021-04-07] MEDS: NITROGLYCERIN 0.4 MG/HR PATCH.TD24 TD SCH (08:48)
[2021-04-07] MEDS: DONEPEZIL 5 MG TABLET PO SCH (08:48)
[2021-04-07] MEDS: Z GUARD REMEDY 2 OZ OINT TP SCH (08:58)
[2021-04-07] MEDS: CLOTRIMAZOLE 1% 15 GM TUBE TP SCH ×2 (08:58→16:37)
[2021-04-07] MEDS: ACETAMINOPHEN 325 MG TABLET PO PRN (11:49)
[2021-04-07] MEDS: IV NS 0.9% 1,000 ML IV PRN (14:28)
[2021-04-07 16:00] VITALS: BP_SYST 118; BP_SYST 146; BP_DIAS 65; BP_DIAS 97
--- NOTE | 2021-04-07 18:31 | NUR ---
MS RN CLOSING NOTE PATIENT IS CURRENTLY LYING IN BED, AWAKE. AROUSABLE TO VERBAL STIMULI. PATIENT SPEAKS PRIMARILY AZERBAIJANI, BUT ABLE TO FOLLOW SIMPLE COMMANDS IN [place]. A/O X1-2. ON 2 LPM OF OXYGEN VIA NASAL CANNULA - TOLERATING WELL. NO SOB OR DISTRESS. IV ACCESS TO LEFT WRIST #18 - RUNNING NS @ 40 ML/HR. LEFT BREAST DRESSING CHANGED - NO REDNESS NOTED. PATIENT HAS DVT PUMPS ON. POSSIBLE DISCHARGE TOMORROW. SAFETY MEASURES IN PLACE. CALL LIGHT WITHIN REACH. WILL ENDORSE TO FIELD RESEARCH ASSOCIATE NURSE FOR LINDA.
--- NOTE | 2021-04-07 20:00 | NUR ---
MS MAR MENJIVAR NOTES: RECEIVED PATIENT SLEEP IN BED COMFORTABLY, BED IN LOW POSITION, CALL LIGHTS WITHIN REACH, NO COMPLAIN OF PAIN AND SICOMFORT AT THIS TIME, ON IV HYDRATION OF NSS @40ML/HR AT L WRIST G 22 ON PUREEED DIET, PATIENT KEPT CLEAN ANDD RY WILL CONTINUE TO MONITOR.
[2021-04-07 20:27] VITALS: BP 131/62
[2021-04-07] MEDS: CEFTRIAXONE 2 G in IV D5W 100 ML IV SCH (22:04)
[2021-04-07] MEDS: ENOXAPARIN SODIUM 30 MG/0.3 ML DISP.SYRIN SQ SCH (22:05)
[2021-04-07] MEDS: SIMVASTATIN 20 MG TABLET PO SCH (22:05)
--- NOTE | 2021-04-08 06:34 | NUR ---
MS RN CLOSING NOTES; RECEIVED RESIDENT SLEEP IN BED COMFORTABLY, AROUSABLE TO VERBAL AND TACTILE STIMULATION, BED IN LOW POSITION, CALL LIGHTS WITHIN REACH, NO COMPLAIN OF PAIN AND DISCOMFORT AT THIS TIME, ON IV HYDRATION OF 0.9NSS @40ML INFUSING WELL ON L WRIST #22, ON PUREE DIET, ON CRUSH MEDICINE, WITH LEFT BREAST REDNESS TO CLEANSE WITH SOAP AND WATER, DRY AND APPLY Z GUARD OR MEPILEX, PATEINT KEPT CLEAN ANDD RY WILL CONTINUE TO MONITOR.
--- NOTE | 2021-04-08 07:18 | NUR ---
MS RN OPENING NOTES RECEIVED PATIENT AWAKE AND RESTING IN BED, PATIENT ONLY SPEAKS PRIMARILY SYRIAC, BUT ABLE TO FOLLOW SIMPLE COMMANDS. PATIENT IS A/O X1. PATIENT IS BREATHING EVENLY AND NONLABORED SHOWING NO SIGNS OF SOB OR DISTRESS, STABLE ON NC 2 LPM. IV ACCESS IN PLACE ON L WRIST G#22 PATENT AND INTACT RUNNING NS @ 40ML/HR. PATIENT HAS DVT PUMPS ON. SAFETY MEASURES IN PLACE, CALL LIGHT AND TABLE WITHIN REACH, SIDE RAILS UP X 2, HOB ELEVATED, BED ALARM ON. WILL CONTINUE TO MONITOR.
[2021-04-08] MEDS: BLOOD SUGAR DIAGNOSTIC 1 EACH STRIP IN SCH ×2 (07:58→11:07)
[2021-04-08 08:00] VITALS: BP 136/70
[2021-04-08] MEDS: MEMANTINE HCL 5 MG TABLET PO SCH (08:09)
[2021-04-08] MEDS: Z GUARD REMEDY 2 OZ OINT TP SCH (08:09)
[2021-04-08] MEDS: ASPIRIN EC 81 MG TABLET.DR PO SCH (08:09)
[2021-04-08] MEDS: ALLOPURINOL 100 MG TABLET PO SCH (08:09)
[2021-04-08] MEDS: VALSARTAN 80 MG TABLET PO SCH (08:09)
[2021-04-08] MEDS: CLOTRIMAZOLE 1% 15 GM TUBE TP SCH (08:09)
[2021-04-08] MEDS: FENOFIBRATE NANOCRYS (145 MG) 145 MG TABLET PO SCH (08:10)
[2021-04-08] MEDS: HYDROCHLOROTHIAZIDE 25 MG TABLET PO SCH (08:10)
[2021-04-08] MEDS: GLIMEPIRIDE 1 MG TABLET PO SCH (08:10)
[2021-04-08] MEDS: CARBIDOPA/LEVODOPA 25/100 MG 1 UDTAB PO SCH ×2 (08:10→12:02)
[2021-04-08] MEDS: DONEPEZIL 5 MG TABLET PO SCH (08:10)
[2021-04-08] MEDS: METOPROLOL TARTRATE 25 MG TABLET PO SCH (08:10)
[2021-04-08] MEDS: PANTOPRAZOLE 40 MG TABLET.DR PO SCH (08:10)
[2021-04-08] MEDS: NITROGLYCERIN 0.4 MG/HR PATCH.TD24 TD SCH (08:34)
[2021-04-08] MEDS ORDERED: LEVO500T90 PO (09:09)
[2021-04-08] MEDS: INSULIN REGULAR, HUMAN 100 UNIT/ML 3 ML VIAL SQ PRN (11:08)
--- NOTE | 2021-04-08 11:32 | NUR ---
RN NOTE PATIENTS GLUCOSE @ 104, NO INSULIN NEEDED
[2021-04-08 16:08] VITALS: BP 132/67
--- NOTE | 2021-04-08 16:25 | NUR ---
MS CAT HOOKER NOTE RECEIVED ORDER FOR DISCHARGE PATIENT AWAKE AND RESTING IN BED, PATIENT ONLY SPEAKS PRIMARILY CENTRAL AFRICAN, BUT ABLE TO FOLLOW SIMPLE COMMANDS. PATIENT IS A/O X1. PATIENT IS BREATHING EVENLY AND NONLABORED SHOWING NO SIGNS OF SOB OR DISTRESS, STABLE ON ROOM AIR. DISCHARGE INSTRUCTIONS WERE GIVEN TO SON AND GRANDSON VERBALLY AND IN WRITTEN FORM. FAMILY VERBALIZED UNDERSTANDING. PATIENT WILL HAVE IV ACCESS & ID BAND WAS REMOVED. PATIENT LEFT IN STABLE CONDITION VIA PRIVATE CAR WITH CAREGIVER AND SON PRESENT.
== END 2021-04-08 16:36 | disposition home health service (06) | DRG 871 ==
LOC: ER 19:49 → MED 21:26 → TELE 21:40 → MED 04-05 08:44
PROVIDERS: ADMIT Legal Medicine; ATTEND Legal Medicine
DX: A41.51 Sepsis due to Escherichia coli [E. coli] (principal); N17.0 Acute kidney failure with tubular necrosis; I21.A1 Myocardial infarction type 2; N39.0 Urinary tract infection, site not specified; G93.40 Encephalopathy, unspecified; E78.5 Hyperlipidemia, unspecified; E86.0 Dehydration; K21.9 Gastro-esophageal reflux disease without esophagitis; E11.9 Type 2 diabetes mellitus without complications; E83.42 Hypomagnesemia; G20 Parkinson's disease; I25.10 Atherosclerotic heart disease of native coronary artery without angina pectoris; Z87.440 Personal history of urinary (tract) infections; N18.9 Chronic kidney disease, unspecified; I12.9 Hypertensive chronic kidney disease with stage 1 through stage 4 chronic kidney disease, or unspecified chronic kidney disease; E87.70 Fluid overload, unspecified; Z20.822 Contact with and (suspected) exposure to COVID-19
CPT/HCPCS: 36415; 71045-TC; 76770-TC; 80048-TC; 80053-TC; 80076-TC; 81001; 82550-TC; 82962-TC; 83605-TC; 83735-TC; 83970; 84100-TC; 84155; 84165; 84484-TC; 85025-TC; 85730-TC; 87040-TC; 87081-TC; 87086-TC; 87186-TC; 93307-TC; 97112-TC; 97116-TC; 97530-TC; C9803; G0378; J0696; J1650; J1815; J3475; J3490; J7030; J7060

== ENCOUNTER 2022-01-29 09:15 | Inpatient (IN) | payer MEDICARE, OTHER ==
[~2022-01-29] VITALS: Ht 157.5 cm; Wt 63.5 kg
[~2022-01-29 09:15] MED LIST changes: +LEVO500T90 PO
--- NOTE | 2022-01-29 09:21 | NUR ---
BIBRA 38 FROM HOME C/O MORE ALTERED THAN USUAL AND WEAKNESS STARTED YESTERDAY. +VOMITING AND DIARRHEA TODAY. TO ER BED 6, HOOKED TO MONITOR, CHANGED TO HOSP GOWN, WARM, BLANKET PROVIDED. PATIENT AAO x 1. BREATHING EVEN AND UNLABORED. AWAITING MD MEYER
--- NOTE | 2022-01-29 09:25 | NUR ---
DR MILLER AT BEDSIDE
[2022-01-29] MEDS ORDERED: IV NS 0.9% 500 ML BAG IV ONE (09:30)
--- NOTE | 2022-01-29 09:40 | NUR ---
MOVE SHEET SUBMITTED AND CALLED FOR TELE BED.
--- NOTE | 2022-01-29 09:45 | NUR ---
COVID SWAB DONE AND SENT TO LAB
[2022-01-29 09:55] LABS: BASOPHILS % (AUTO) 0.2 % (0.0-2.0); HEMATOCRIT 40 % (33-45); HEMOGLOBIN 13.2 g/dL (11.5-14.8); LYMPHOCYTES # (AUTO) 2.1 K/uL (0.8-4.8); LYMPHOCYTES % (AUTO) 19.5 % (20.0-44.0); MEAN CORPUSCULAR HGB CONC 33 g/dl (31.0-36.0); MEAN CORPUSCULAR VOLUME 95 fL (82-100); MONOCYTES # (AUTO) 0.5 K/uL (0.1-1.30); MONOCYTES % (AUTO) 4.8 % (2.0-12.0); NEUTROPHILS # (AUTO) 7.8 K/uL (1.8-8.9); NEUTROPHILS % (AUTO) 73.5 % (43.0-81.0); PLATELET COUNT (AUTO) 205 K/uL (150-450); RED BLOOD CELL COUNT(AUTO) 4.24 MIL/uL (4.0-5.2); WHITE BLOOD COUNT (AUTO) 10.6 K/uL (4.3-11.0)
[2022-01-29 10:21] LABS: CALCIUM, SERUM 9.2 mg/dL (8.5-10.1); CARBON DIOXIDE 25 mmol/L (21-32); CHLORIDE 106 mmol/L (98-107); CREATININE 1.3 mg/dL (0.6-1.3); GLUCOSE 120 mg/dL (74-106); POTASSIUM 4.5 mmol/L (3.5-5.1); SODIUM SERUM 140 mmol/L (136-145); UREA NITROGEN, BLOOD 39 mg/dL (7-18)
[2022-01-29 10:26] LABS: ALANINE AMINOTRANSFERASE 14 U/L (12-78); ALBUMIN 3.6 g/dL (3.4-5.0); ALKALINE PHOSPHATASE 29 U/L (46-116); ASPARTATE AMINOTRANSFERASE 20 U/L (15-37); BILIRUBIN,DIRECT 0.1 mg/dL (0.0-0.2); BILIRUBIN,TOTAL 0.3 mg/dL (0.2-1.0); TOTAL PROTEIN, SERUM 7.4 g/dL (6.4-8.2)
--- NOTE | 2022-01-29 11:02 | NUR ---
DEVI (GRAND SON) [phone]
[2022-01-29] MEDS ORDERED: IV NS 0.9% 250 ML IV ONE (11:10)
[2022-01-29] MEDS ORDERED: IOHEXOL-300 100 ML VIAL IV ONE (11:10)
[2022-01-29] MEDS ORDERED: CT SWABBABLE VALVE TRANS SET 1 EA INFUS.SET MC ONE (11:10)
--- NOTE | 2022-01-29 11:38 | NUR ---
URINE SAMPLE COLLECTED VIA MESSER CATHETER AND SENT TO LAB
--- NOTE | 2022-01-29 11:41 | NUR ---
CALLED DR. NINO [phone] WILL CALL US BACK.
[2022-01-29 12:10] LABS: BILIRUBIN,URINE NEGATIVE (NEGATIVE); COLOR,URINE YELLOW (YELLOW); LEUKOCYTE ESTERASE ,URINE NEGATIVE (NEGATIVE); NITRITE, URINE NEGATIVE (NEGATIVE); PROTEIN,URINE NEGATIVE (NEGATIVE); UGLUCOSE NEGATIVE (NEGATIVE); UROBILINOGEN,URINE 0.2 EU/dL (0.2)
[2022-01-29] MEDS ORDERED: ONDANSETRON HCL/PF 4 MG/2 ML VIAL IVP PRN (12:30)
[2022-01-29] MEDS ORDERED: ACETAMINOPHEN 325 MG TABLET PO PRN (12:30)
[2022-01-29] MEDS ORDERED: MAG HYDROX/AL HYDROX/SIMETH 30 ML UDC PO PRN (12:30)
[2022-01-29] MEDS ORDERED: Z GUARD REMEDY 4 OZ OINT TP PRN (12:30)
[2022-01-29] MEDS ORDERED: MAGNESIUM HYDROXIDE 30 ML UDC PO PRN (12:30)
[2022-01-29 12:45] LABS: BACTERIA,URINE None seen /HPF (None Seen); RBC,URINE 0-2 /HPF (0-2); SQUAMOUS EPITHELIAL CELL,UR Few /HPF (None Seen); WBC,URINE 0-2 /HPF (0-3)
--- NOTE | 2022-01-29 13:19 | NUR ---
GOT BED 324-2
--- NOTE | 2022-01-29 13:35 | NUR ---
REPORT GIVEN TO LILY MANUEL OF TELE UNIT
--- NOTE | 2022-01-29 14:00 | NUR ---
MEDIC TECHNICIAN ADMITTING NOTE ADMITTED PATIENT TO BED 324-2 [place]IA [place]. PATIENT A/O X 1 TO NAME ONLY, COMMUNICATES NON-INTELLIGIBLE SOUNDS, MESSER CATH DRAINING CLEAR YELLOW URINE TO GRAVITY. TELE MONITOR APPLIED READING A-FIB 110. R AC # 20 INTACT, PATENT, FLUSHING WELL WITH IV CEFTRIAXONE AT 100 ML/HR. SKIN INTACT. PATIENT TOLERATING WELL ON ROOM AIR WITH NO S/S OF RESPIRATORY DISTRESS. BREATHING EVEN AND UNLABORED. NO COMPLAINTS OF PAIN OR DISCOMFORT AT THIS TIME. WILL CONTINUE TO MONITOR.
[2022-01-29] MEDS: CARBIDOPA/LEVODOPA 25/100 MG 1 UDTAB PO SCH ×2 (14:35→16:55)
[2022-01-29] MEDS: ENOXAPARIN SODIUM 30 MG/0.3 ML DISP.SYRIN SQ SCH (14:36)
[2022-01-29] MEDS: CEFTRIAXONE 1 G in IV D5W 50 ML IV SCH (15:39)
[2022-01-29] MEDS: METOPROLOL TARTRATE 25 MG TABLET PO SCH (16:55)
--- NOTE | 2022-01-29 19:00 | NUR ---
RN CLOSING NOTE PATIENT LAYING IN BED, A/O X 1, MESSER CATH DRAINING CLEAR YELLOW URINE TO GRAVITY. TELE MONITOR READING A-FIB 98. R AC #20 INTACT, PATENT, FLUSHING WELL WITH NS @ 75 ML/HR. PATIENT TOLERATING WELL ON ROOM AIR WITH NO S/S OF RESPIRATORY DISTRESS. BREATHING EVEN AND UNLABORED ON ROOM AIR. NO COMPLAINTS OF PAIN OR DISCOMFORT AT THIS TIME. LEFT WITH SON AND GRANDSON AND CALLBACK NUMBER PROVIDED FOR UNIT, TO OBTAIN ADDITIONAL PATIENT MEDICAL HISTORY FOR ADMISSION. OPERATOR CATALYST CONCENTRATION MADE AWARE. WILL ENDORSE TO OPERATOR CATALYST CONCENTRATION FOR LINDA.
--- NOTE | 2022-01-29 19:15 | NUR ---
SUPERVISOR SHOP OPENING NOTES RECEIVED PATIENT LAYING AWAKE IN BED. A/O X1. PATIENT WITH REGULAR AND UNLABORED BREATHING ON ROOM AIR, TOLERATED WELL. NO SIGNS AND SYMPTOMS OF DISTRESS NOTED. NO COMPLAINS OF PAIN OR DISCOMFORT AT THIS TIME. PATIENT ON TELE MONITOR READING A-FIB @ 101 BPM. IV ACCESS RAC G #20 INFUSING D5 1/2NS @ 75 ML/HR. IV ACCESS PATENT AND INTACT. SAFETY PRECAUTIONS ENFORCED WITH BED LOCKED AND AT LOWEST POSITION. SIDE RAILS UP X2. CALL LIGHT WITHIN REACH AT ALL TIMES. WILL CONTINUE TO MONITOR PATIENT.
[2022-01-29 20:00] VITALS: BP 119/84
[2022-01-29] MEDS: SIMVASTATIN 20 MG TABLET PO SCH (21:19)
[2022-01-30] VITALS: BP 136/86
[2022-01-30 04:00] VITALS: BP 139/61
[2022-01-30] MEDS: IV D5/0.45 NACL 1,000 ML IV PRN (06:13)
--- NOTE | 2022-01-30 06:47 | NUR ---
OCCUPATIONAL THERAPY INSTRUCTOR CLOSING NOTES PATIENT STILL LAYING AWAKE IN BED. A/O X1. PATIENT WITH REGULAR AND UNLABORED BREATHING ON ROOM AIR, TOLERATED WELL. NO SIGNS AND SYMPTOMS OF DISTRESS NOTED. NO COMPLAINS OF PAIN OR DISCOMFORT AT THIS TIME. PATIENT ON TELE MONITOR READING A-FIB @ 94 BPM. IV ACCESS RAC G #20 INFUSING D5 1/2NS @ 75 ML/HR. IV ACCESS PATENT AND INTACT. SAFETY PRECAUTIONS ENFORCED WITH BED LOCKED AND AT LOWEST POSITION. SIDE RAILS UP X2. CALL LIGHT WITHIN REACH AT ALL TIMES. WILL ENDORSE CONTINUITY OF CARE TO DAY SHIFT NURSE.
[2022-01-30 06:51] LABS: BASOPHILS % (AUTO) 0.4 % (0.0-2.0); EOSINOPHILS % (AUTO) 2.1 % (0.0-6.0); HEMATOCRIT 38 % (33-45); HEMOGLOBIN 12.5 g/dL (11.5-14.8); LYMPHOCYTES # (AUTO) 2.2 K/uL (0.8-4.8); LYMPHOCYTES % (AUTO) 28.1 % (20.0-44.0); MEAN CORPUSCULAR HGB CONC 33 g/dl (31.0-36.0); MEAN CORPUSCULAR VOLUME 95 fL (82-100); MONOCYTES # (AUTO) 0.5 K/uL (0.1-1.30); MONOCYTES % (AUTO) 6.9 % (2.0-12.0); NEUTROPHILS # (AUTO) 4.9 K/uL (1.8-8.9); NEUTROPHILS % (AUTO) 62.5 % (43.0-81.0); PLATELET COUNT (AUTO) 189 K/uL (150-450); WHITE BLOOD COUNT (AUTO) 7.9 K/uL (4.3-11.0)
--- NOTE | 2022-01-30 07:20 | NUR ---
ms rn received on bed, awake,alert,oriented x1,not in any form of distress, respirations even and unlabored,no sob noted, lungs are clear,abdomen soft,positive bowel sounds denies pain at this time,all needs attended.
[2022-01-30 07:51] LABS: CALCIUM, SERUM 8.8 mg/dL (8.5-10.1); MAGNESIUM 1.8 mg/dL (1.8-2.4); POTASSIUM 4.2 mmol/L (3.5-5.1)
[2022-01-30 08:00] VITALS: BP 136/81
--- NOTE | 2022-01-30 08:30 | NUR ---
ms loo breakfast served,due meds given,tolerated well.
[2022-01-30] MEDS: MEMANTINE HCL 5 MG TABLET PO SCH (10:44)
[2022-01-30] MEDS: DONEPEZIL 5 MG TABLET PO SCH (10:44)
[2022-01-30] MEDS: HYDROCHLOROTHIAZIDE 25 MG TABLET PO SCH (10:44)
[2022-01-30] MEDS: GLIMEPIRIDE 1 MG TABLET PO SCH (10:45)
[2022-01-30] MEDS: FENOFIBRATE NANOCRYS (145 MG) 145 MG TABLET PO SCH (10:45)
[2022-01-30] MEDS: CARBIDOPA/LEVODOPA 25/100 MG 1 UDTAB PO SCH ×3 (10:45→17:10)
[2022-01-30] MEDS: LOSARTAN POTASSIUM 50 MG TABLET PO SCH (10:45)
[2022-01-30] MEDS: ASPIRIN EC 81 MG TABLET.DR PO SCH (10:45)
[2022-01-30] MEDS: METOPROLOL TARTRATE 25 MG TABLET PO SCH ×2 (10:46→17:10)
[2022-01-30] MEDS: ALLOPURINOL 100 MG TABLET PO SCH (10:46)
--- NOTE | 2022-01-30 11:30 | NUR ---
ms rn was seen by edie hurd/ orders made and carried out.
[2022-01-30 12:00] VITALS: BP_SYST 125; BP_SYST 170; BP_DIAS 100; BP_DIAS 76
[2022-01-30] MEDS: ENOXAPARIN SODIUM 30 MG/0.3 ML DISP.SYRIN SQ SCH (14:03)
[2022-01-30] MEDS: CEFTRIAXONE 1 G in IV D5W 50 ML IV SCH (14:28)
[2022-01-30 16:00] VITALS: BP 124/67
--- NOTE | 2022-01-30 17:44 | NUR ---
ms rn on bed, all needs attended,no distress noted, call light w/in reach.
[2022-01-30 20:00] VITALS: BP 129/77
--- NOTE | 2022-01-30 20:00 | NUR ---
DATA ANALYSIS MANAGER OPENING NOTES RECEIVED PATIENT LYING IN BED, EYES CLOSED. EASY TO AROUSE. A/O X1. NO APPARENT DISTRESS NOTED. STABLE ON ROOM AIR. ON TELE MONITOR SHOWING A-FIB 91. NO C/O PAIN OR DISCOMFORT. PULLED OUT RIGHT WRIST IV ACCESS #22G, WILL RE-INSERT. SAFETY MEASURES IN PLACE. WILL CONTINUE PLAN OF CARE.
[2022-01-30] MEDS: SIMVASTATIN 20 MG TABLET PO SCH (21:00)
[2022-01-31] VITALS: BP 121/76
[2022-01-31 04:00] VITALS: BP 132/70
[2022-01-31] MEDS: IV D5/0.45 NACL 1,000 ML IV PRN ×2 (05:21→21:15)
--- NOTE | 2022-01-31 06:19 | NUR ---
MOTION PICTURE OPERATOR CLOSING NOTES PATIENT LYING IN BED AWAKE, NON-VERBAL. RESPONSIVE TO VERBAL AND TACTILE STIMULI. A/O X1. TOLERATING ROOM AIR WELL. BREATHING EVEN AND UNLABORED. SKIN WARM AND DRY. ABDOMEN SOFT AND NON-TENDER. ON TELE MONITOR READING A-FIB AT 83 BPM. RE-INSERTED IV ACCESS TO RIGHT WRIST #22G WITH D5 1/2 NS RUNNING AT 75 ML/HR. INTACT, PATENT AND FLUSHING. URINE OUTPUT OF 825 CC VIA MESSER CATHETER, DRAINING CLEAR AND YELLOW URINE. ALL NEEDS ATTENDED. KEPT DRY AND COMFORTABLE. SAFETY PRECAUTIONS IN PLACE: BED LOW AND LOCKED, SIDE RAILS UP X3, CALL LIGHT WITHIN REACH.
[2022-01-31 06:30] LABS: BASOPHILS % (AUTO) 0.3 % (0.0-2.0); EOSINOPHILS % (AUTO) 2.4 % (0.0-6.0); HEMATOCRIT 40 % (33-45); HEMOGLOBIN 13.4 g/dL (11.5-14.8); LYMPHOCYTES # (AUTO) 2.3 K/uL (0.8-4.8); LYMPHOCYTES % (AUTO) 28.1 % (20.0-44.0); MEAN CORPUSCULAR HGB CONC 34 g/dl (31.0-36.0); MEAN CORPUSCULAR VOLUME 93 fL (82-100); MONOCYTES # (AUTO) 0.6 K/uL (0.1-1.30); MONOCYTES % (AUTO) 7.4 % (2.0-12.0); NEUTROPHILS # (AUTO) 5.1 K/uL (1.8-8.9); NEUTROPHILS % (AUTO) 61.8 % (43.0-81.0); PLATELET COUNT (AUTO) 200 K/uL (150-450); RED BLOOD CELL COUNT(AUTO) 4.31 MIL/uL (4.0-5.2); WHITE BLOOD COUNT (AUTO) 8.3 K/uL (4.3-11.0)
[2022-01-31 06:46] LABS: CALCIUM, SERUM 9.2 mg/dL (8.5-10.1); CARBON DIOXIDE 22 mmol/L (21-32); CHLORIDE 100 mmol/L (98-107); CREATININE 0.8 mg/dL (0.6-1.3); GLUCOSE 108 mg/dL (74-106); MAGNESIUM 1.8 mg/dL (1.8-2.4); PHOSPHORUS 3.1 mg/dL (2.5-4.9); POTASSIUM 3.8 mmol/L (3.5-5.1); SODIUM SERUM 131 mmol/L (136-145); UREA NITROGEN, BLOOD 18 mg/dL (7-18)
--- NOTE | 2022-01-31 07:30 | NUR ---
DRUM BARKER OPERATOR OPENING NOTES RECEIVED PATIENT LYING IN BED AWAKE. A/O X1. [place]HT[place] SPEAKER. SMILES WHEN TALKING TO HER. NO APPARENT DISTRESS NOTED. STABLE ON ROOM AIR. ON TELE MONITOR . NO C/O PAIN OR DISCOMFORT. NO RESPIRATORY DISTRESS NOTED.SAFETY MEASURES IN PLACE. CALL LIGHT AND TABLE IN REACH. BED LOCKED IN THE LOWEST POSITION. WILL CONTINUE TO MONITOR.
[2022-01-31] MEDS: MEMANTINE HCL 5 MG TABLET PO SCH (08:26)
[2022-01-31] MEDS: ASPIRIN EC 81 MG TABLET.DR PO SCH (08:26)
[2022-01-31] MEDS: LOSARTAN POTASSIUM 50 MG TABLET PO SCH (08:27)
[2022-01-31] MEDS: FENOFIBRATE NANOCRYS (145 MG) 145 MG TABLET PO SCH (08:27)
[2022-01-31] MEDS: GLIMEPIRIDE 1 MG TABLET PO SCH (08:27)
[2022-01-31] MEDS: METOPROLOL TARTRATE 25 MG TABLET PO SCH ×2 (08:28→17:01)
[2022-01-31] MEDS: ALLOPURINOL 100 MG TABLET PO SCH (08:28)
[2022-01-31] MEDS: CARBIDOPA/LEVODOPA 25/100 MG 1 UDTAB PO SCH ×3 (08:28→17:01)
[2022-01-31] MEDS: DONEPEZIL 5 MG TABLET PO SCH (08:29)
[2022-01-31] MEDS: HYDROCHLOROTHIAZIDE 25 MG TABLET PO SCH (08:29)
[2022-01-31] MEDS: ENOXAPARIN SODIUM 30 MG/0.3 ML DISP.SYRIN SQ SCH (12:43)
[2022-01-31] MEDS: CEFTRIAXONE 1 G in IV D5W 50 ML IV SCH (14:19)
--- NOTE | 2022-01-31 18:44 | NUR ---
COPY CUTTER CLOSING NOTES PATIENT LYING IN BED AWAKE. A/O X1. YI SPEAKER. SMILES WHEN TALKING TO HER. NO APPARENT DISTRESS NOTED. STABLE ON ROOM AIR. ON TELE MONITOR WITH CONTROLLED AFIB. NO C/O PAIN OR DISCOMFORT. NO RESPIRATORY DISTRESS NOTED. 2 EPISODES OF VOMITING NOTED. ALL DUE MEDS GIVEN ORDERED. TOLERATED WELL. SAFETY MEASURES IN PLACE. CALL LIGHT AND TABLE IN REACH. BED LOCKED IN THE LOWEST POSITION. WILL ENDORSE FOR LINDA.
[2022-01-31 20:00] VITALS: BP 128/77
--- NOTE | 2022-01-31 20:00 | NUR ---
SATURATOR TENDER OPENING NOTES RECEIVED PATIENT LYING IN BED, AWAKE. A/O X1, NON-VERBAL, SMILES WHEN TALKING TO HER. NO APPARENT DISTRESS NOTED. BREATHING EVEN AND UNLABORED. ON TELE MONITOR READING A-FIB AT 88 BPM. HAS RIGHT WRIST IV ACCESS #22G WITH D5 1/2 NS RUNNING AT 75 ML/HR. DRESSING INTACT. SAFETY PRECAUTIONS IN PLACE. WILL CONTINUE PLAN OF CARE.
[2022-01-31 20:11] VITALS: BP 128/77
[2022-01-31] MEDS: SIMVASTATIN 20 MG TABLET PO SCH (21:14)
[2022-01-31 23:54] VITALS: BP 126/71
[2022-02-01] VITALS (7 sets, daily range): BP systolic 125–138; BP diastolic 68–82
--- NOTE | 2022-02-01 06:24 | NUR ---
INSULATION NOZZLEMAN CLOSING NOTES PATIENT LYING IN BED, SLEEPING INTERMITTENTLY. EASY TO AROUSE. A/O X1. NON-VERBAL, SMILES WHEN TALKING TO HER. NO SOB OR NOTED. NO PAIN OR DISCOMFORT NOTED. ABDOMEN SOFT AND NON-TENDER. NO BM DURING SHIFT. SKIN WARM AND DRY. ON TELE MONITOR READING A-FIB AT 88 BPM. HAS RIGHT WRIST IV ACCESS #22G WITH D5 1/2 NS RUNNING AT 75 ML/HR. INTACT, PATENT AND FLUSHING. ALL NEEDS ATTENDED. KEPT DRY AND COMFORTABLE. SAFETY PRECAUTIONS IN PLACE: BED LOW AND LOCKED, SIDE RAILS UP X3, CALL LIGHT WITHIN REACH.
--- NOTE | 2022-02-01 07:28 | NUR ---
JR. JAVA DEVELOPER OPENING NOTES RECEIVED PATIENT LYING IN BED AWAKE. A/O X1. ENGLISH SPEAKER. SMILES WHEN TALKING TO HER. NO APPARENT DISTRESS NOTED. STABLE ON ROOM AIR. ON TELE MONITOR . NO C/O PAIN OR DISCOMFORT. NO RESPIRATORY DISTRESS NOTED.SAFETY MEASURES IN PLACE. CALL LIGHT AND TABLE IN REACH.ASPIRATION PRECAUTION. BED LOCKED IN THE LOWEST POSITION. WILL CONTINUE TO MONITOR.
[2022-02-01 07:44] LABS: BASOPHILS % (AUTO) 0.2 % (0.0-2.0); EOSINOPHILS % (AUTO) 2.1 % (0.0-6.0); HEMATOCRIT 41 % (33-45); HEMOGLOBIN 13.6 g/dL (11.5-14.8); LYMPHOCYTES % (AUTO) 23.1 % (20.0-44.0); MEAN CORPUSCULAR HGB CONC 33 g/dl (31.0-36.0); MEAN CORPUSCULAR VOLUME 93 fL (82-100); MONOCYTES # (AUTO) 0.7 K/uL (0.1-1.30); MONOCYTES % (AUTO) 8.2 % (2.0-12.0); NEUTROPHILS # (AUTO) 5.6 K/uL (1.8-8.9); NEUTROPHILS % (AUTO) 66.4 % (43.0-81.0); PLATELET COUNT (AUTO) 210 K/uL (150-450); RED BLOOD CELL COUNT(AUTO) 4.38 MIL/uL (4.0-5.2); WHITE BLOOD COUNT (AUTO) 8.5 K/uL (4.3-11.0)
[2022-02-01] MEDS: METFORMIN 500 MG TABLET PO SCH ×2 (08:52→17:04)
[2022-02-01] MEDS: ASPIRIN EC 81 MG TABLET.DR PO SCH (08:53)
[2022-02-01] MEDS: GLIMEPIRIDE 1 MG TABLET PO SCH (08:53)
[2022-02-01] MEDS: MEMANTINE HCL 5 MG TABLET PO SCH (08:53)
[2022-02-01] MEDS: DONEPEZIL 5 MG TABLET PO SCH (08:53)
[2022-02-01] MEDS: HYDROCHLOROTHIAZIDE 25 MG TABLET PO SCH (08:53)
[2022-02-01] MEDS: ALLOPURINOL 100 MG TABLET PO SCH (08:54)
[2022-02-01] MEDS: LOSARTAN POTASSIUM 50 MG TABLET PO SCH (08:54)
[2022-02-01] MEDS: METOPROLOL TARTRATE 25 MG TABLET PO SCH ×2 (08:54→17:05)
[2022-02-01] MEDS: CARBIDOPA/LEVODOPA 25/100 MG 1 UDTAB PO SCH ×3 (08:54→17:04)
[2022-02-01] MEDS: FENOFIBRATE NANOCRYS (145 MG) 145 MG TABLET PO SCH (08:54)
[2022-02-01 10:47] LABS: CALCIUM, SERUM 9.3 mg/dL (8.5-10.1); CREATININE 0.8 mg/dL (0.6-1.3); MAGNESIUM 1.8 mg/dL (1.8-2.4); PHOSPHORUS 3.3 mg/dL (2.5-4.9); POTASSIUM 3.6 mmol/L (3.5-5.1)
[2022-02-01] MEDS: IV D5/0.45 NACL 1,000 ML IV PRN (11:15)
[2022-02-01] MEDS: ENOXAPARIN SODIUM 30 MG/0.3 ML DISP.SYRIN SQ SCH (12:15)
--- NOTE | 2022-02-01 18:54 | NUR ---
METAL SORTER CLOSING NOTES PATIENT LYING IN BED AWAKE. A/O X1. MACEDONIAN SPEAKER. SMILES WHEN TALKING TO HER. NO APPARENT DISTRESS NOTED. STABLE ON ROOM AIR. ON TELE MONITOR . NO C/O PAIN OR DISCOMFORT. NO RESPIRATORY DISTRESS NOTED.SAFETY MEASURES IN PLACE.ALL DUE MEDS GIVEN ORDERED. 1 EPISODE OF FOOD VOMITING NOTED. CALL LIGHT AND TABLE IN REACH.ASPIRATION PRECAUTION. BED LOCKED IN THE LOWEST POSITION. WILL ENDORSE FOR LINDA.
--- NOTE | 2022-02-01 19:22 | NUR ---
CATALOGUE MAKER OPENING NOTES PATIENT LYING IN BED AWAKE. A/O X1. MOHAWK SPEAKER. SMILES WHEN TALKING TO HER. NO APPARENT DISTRESS NOTED. STABLE ON ROOM AIR. ON TELE MONITOR . NO C/O PAIN OR DISCOMFORT. NO RESPIRATORY DISTRESS NOTED.SAFETY MEASURES IN PLACE. CALL LIGHT AND TABLE IN REACH.ASPIRATION PRECAUTION. BED LOCKED IN THE LOWEST POSITION. WILL CONTINUE TO MONITOR.
[2022-02-01] MEDS: SIMVASTATIN 20 MG TABLET PO SCH (21:59)
[2022-02-02] VITALS: BP 115/73
[2022-02-02 04:00] VITALS: BP 120/79
--- NOTE | 2022-02-02 06:55 | NUR ---
BLOCK OPERATOR CLOSING NOTES PATIENT LYING IN BED AWAKE. A/O X1. VIETNAMESE SPEAKER. SMILES WHEN TALKING TO HER. NO APPARENT DISTRESS NOTED. STABLE ON ROOM AIR. ON TELE MONITOR . NO C/O PAIN OR DISCOMFORT. NO RESPIRATORY DISTRESS MESSER CATH NOTED WITH 1000CC OF CLEAR YELLOW URINE NOTED.SAFETY MEASURES IN PLACE. CALL LIGHT AND TABLE IN REACH.ASPIRATION PRECAUTION. BED LOCKED IN THE LOWEST POSITION. WILL ENDORSE CARE.
[2022-02-02] MEDS: LOSARTAN POTASSIUM 50 MG TABLET PO SCH (09:00)
--- NOTE | 2022-02-02 09:03 | NUR ---
TELE/RN OPENING NOTES RECEIVED PATIENT LYING IN BED AWAKE. A/O X1. ALBANIAN SPEAKER. IN NO APPARENT DISTRESS NOTED. STABLE ON ROOM AIR. ON TELE MONITOR WITH SINUS RHYTHM READING. NO S/S C/O PAIN OR DISCOMFORT. NO RESPIRATORY DISTRESS MESSER CATH IN PLACED WITH CLEAR YELLOW/URINE. SAFETY MEASURES IN PLACE. CALL LIGHT AND TABLE IN REACH.ASPIRATION PRECAUTION. BED LOCKED IN THE LOWEST POSITION. WILL CONTINUE WITH THE PLAN OF CARE.
[2022-02-02] MEDS: CARBIDOPA/LEVODOPA 25/100 MG 1 UDTAB PO SCH ×3 (09:20→17:24)
[2022-02-02] MEDS: GLIMEPIRIDE 1 MG TABLET PO SCH (09:20)
[2022-02-02] MEDS: MEMANTINE HCL 5 MG TABLET PO SCH (09:20)
[2022-02-02] MEDS: FENOFIBRATE NANOCRYS (145 MG) 145 MG TABLET PO SCH (09:20)
[2022-02-02] MEDS: METOPROLOL TARTRATE 25 MG TABLET PO SCH ×2 (09:21→17:25)
[2022-02-02] MEDS: DONEPEZIL 5 MG TABLET PO SCH (09:21)
[2022-02-02] MEDS: METFORMIN 500 MG TABLET PO SCH ×2 (09:21→17:24)
[2022-02-02] MEDS: ASPIRIN EC 81 MG TABLET.DR PO SCH (09:21)
[2022-02-02] MEDS: HYDROCHLOROTHIAZIDE 25 MG TABLET PO SCH (09:22)
[2022-02-02] MEDS: ALLOPURINOL 100 MG TABLET PO SCH (09:22)
--- NOTE | 2022-02-02 09:23 | NUR ---
WITHHELD COZAAR PO THIS AM DUE TO PATIENT HAVING TOO MANY BP MEDS AND BP IS ON THE LOW SIDE. WILL MONITOR.
[2022-02-02] MEDS: ENOXAPARIN SODIUM 30 MG/0.3 ML DISP.SYRIN SQ SCH (12:40)
[2022-02-02] MEDS: IV D5/0.45 NACL 1,000 ML IV PRN (19:19)
--- NOTE | 2022-02-02 19:31 | NUR ---
EDGE TRIMMING MACHINE OPERATOR OPENING NOTE RECEIVED PATIENT LYING IN BED AWAKE. A/O X1. SOUTH AFRICAN SPEAKING. PT STABLE ON ROOM AIR. NO SOB OR S/S OF RESPIRATORY DISTRESS NOTED. IV ACCESS R WRIST 22 GAUGE, INTACT AND PATENT, RUNNING D5 1/2 NS @ 75 ML/HR. MESSER CATH IN PLACE DRAINING CLEAR YELLOW/URINE. SAFETY PRECAUTIONS IN PLACE. BED IN LOWEST LOCKED POSITION, HOB ELEVATED, SIDE RAILS UP X3, AND CALL LIGHT AND TABLE WITHIN REACH. ALL NEEDS MET AT THIS TIME. Addendum: 02/02/22 at 1942 by CHARLES GALICIA RN MS RN OPENING NOTE*
[2022-02-02 20:00] VITALS: BP 123/70
[2022-02-02] MEDS: SIMVASTATIN 20 MG TABLET PO SCH (21:30)
--- NOTE | 2022-02-02 22:26 | NUR ---
RN NOTE MD NINO INFORMED OF PRELIMINARY RESULTS FROM BLOOD CULTURE. NEW ORDERS READ BACK, CONFIRMED BY , AND CARRIED OUT.
[2022-02-02] MEDS ORDERED: VANCOMYCIN 1 GM VIAL ONE (22:51)
[2022-02-02] MEDS ORDERED: VANCOMYCIN 1 GM in IV D5W 250ml IV ONE (23:00)
[2022-02-03 04:00] VITALS: BP 129/69
--- NOTE | 2022-02-03 06:45 | NUR ---
MS RN CLOSING NOTE PATIENT LYING IN BED AWAKE. A/O X1. RUSSIAN SPEAKING. PT STABLE ON ROOM AIR. NO SOB OR S/S OF RESPIRATORY DISTRESS NOTED. IV ACCESS R WRIST 22 GAUGE, INTACT AND PATENT, RUNNING D5 1/2 NS @ 75 ML/HR. MESSER CATH IN PLACE DRAINING CLEAR YELLOW/URINE. SAFETY PRECAUTIONS IN PLACE. BED IN LOWEST LOCKED POSITION, HOB ELEVATED, SIDE RAILS UP X3, AND CALL LIGHT AND TABLE WITHIN REACH. ALL NEEDS MET AT THIS TIME. WILL ENDORSE TO ONCOMING NURSE FOR LINDA.
--- NOTE | 2022-02-03 07:23 | NUR ---
TELE/RN OPENING NOTES RECEIVED PATIENT LYING IN BED AWAKE. A/O X1, NOVERBAL BUT RESPONSIVE TO VERBAL STIMULI. PATIENT IS BREATHING EVENLY AND NONLABORED ON ROOM AIR. NO S/SX OF SOB OR DISTRESS.ON TELE MONITOR WITH SINUS RHYTHM READING. NO S/S C/O PAIN OR DISCOMFORT. MESSER CATH IN PLACED WITH CLEAR YELLOW/URINE. SAFETY MEASURES IN PLACE. CALL LIGHT AND TABLE IN REACH.ASPIRATION PRECAUTION. BED LOCKED IN THE LOWEST POSITION. WILL CONTINUE TO MONITOR
[2022-02-03] MEDS: DONEPEZIL 5 MG TABLET PO SCH (08:10)
[2022-02-03] MEDS: METFORMIN 500 MG TABLET PO SCH (08:10)
[2022-02-03] MEDS: CARBIDOPA/LEVODOPA 25/100 MG 1 UDTAB PO SCH ×3 (08:10→16:48)
[2022-02-03] MEDS: MEMANTINE HCL 5 MG TABLET PO SCH (08:10)
[2022-02-03] MEDS: FENOFIBRATE NANOCRYS (145 MG) 145 MG TABLET PO SCH (08:10)
[2022-02-03] MEDS: ALLOPURINOL 100 MG TABLET PO SCH (08:10)
[2022-02-03] MEDS: GLIMEPIRIDE 1 MG TABLET PO SCH (08:10)
[2022-02-03] MEDS: ASPIRIN EC 81 MG TABLET.DR PO SCH (08:10)
[2022-02-03] MEDS: LOSARTAN POTASSIUM 50 MG TABLET PO SCH (08:11)
[2022-02-03] MEDS: HYDROCHLOROTHIAZIDE 25 MG TABLET PO SCH (08:11)
[2022-02-03] MEDS: METOPROLOL TARTRATE 25 MG TABLET PO SCH ×2 (08:11→16:50)
[2022-02-03 09:03] LABS: BASOPHILS % (AUTO) 0.4 % (0.0-2.0); EOSINOPHILS % (AUTO) 1.4 % (0.0-6.0); HEMATOCRIT 42 % (33-45); HEMOGLOBIN 13.8 g/dL (11.5-14.8); LYMPHOCYTES # (AUTO) 2.8 K/uL (0.8-4.8); MEAN CORPUSCULAR HGB CONC 33 g/dl (31.0-36.0); MEAN CORPUSCULAR VOLUME 94 fL (82-100); MONOCYTES # (AUTO) 0.8 K/uL (0.1-1.30); MONOCYTES % (AUTO) 7.1 % (2.0-12.0); NEUTROPHILS # (AUTO) 7.8 K/uL (1.8-8.9); NEUTROPHILS % (AUTO) 67.1 % (43.0-81.0); PLATELET COUNT (AUTO) 241 K/uL (150-450); RED BLOOD CELL COUNT(AUTO) 4.47 MIL/uL (4.0-5.2); WHITE BLOOD COUNT (AUTO) 11.7 K/uL (4.3-11.0)
[2022-02-03 09:46] LABS: CALCIUM, SERUM 9.1 mg/dL (8.5-10.1); POTASSIUM 3.8 mmol/L (3.5-5.1)
[2022-02-03] MEDS: ENOXAPARIN SODIUM 30 MG/0.3 ML DISP.SYRIN SQ SCH (12:27)
[2022-02-03] MEDS ORDERED: DEXTROSE 50%-WATER 50 ML DISP.SYRIN IVP ONE (16:30)
--- NOTE | 2022-02-03 16:41 | NUR ---
RN NOTE BLOOD SUGAR NOTED TO BE 44, NOTIFIED GAVE NEW ORDERS TO DC GLIPIZIDE AND METFORMIN, X1 ORDER FOR D50 25ML TO BE GIVEN NOW AND ACCUCHECKS ACHS. WILL RECHECK BS
[2022-02-03] MEDS: BLOOD SUGAR DIAGNOSTIC 1 EACH STRIP IN SCH ×2 (17:12→21:49)
--- NOTE | 2022-02-03 17:12 | NUR ---
RN NOTE PATIENTS BLOOD SUGAR NOTED @ 136. CONTINUE ACCUCHECKS ORDERED
--- NOTE | 2022-02-03 18:27 | NUR ---
TELE/RN CLOSING NOTES PATIENT LYING IN BED AWAKE. A/O X1, NONVERBAL BUT RESPONSIVE TO VERBAL STIMULI. PATIENT IS BREATHING EVENLY AND NONLABORED ON ROOM AIR. NO S/SX OF SOB OR DISTRESS. NO S/S C/O PAIN OR DISCOMFORT. MESSER CATH IN PLACED WITH CLEAR YELLOW/URINE. ALL MEDICATION GIVEN ORDERED. PATIENT HAD ONE EPISODE OF HYPOGLYCEMIA, MEDICATION GIVEN BLOOD SUGAR BACK TO 136, ACCUCHECKS ORDERED. VITALS MAINTAINED STABLE THROUGHOUT SHIFT. SAFETY MEASURES IN PLACE. CALL LIGHT AND TABLE IN REACH.ASPIRATION PRECAUTION. BED LOCKED IN THE LOWEST POSITION. WILL ENDORSE TO ONCOMING SHIFT
[2022-02-03 19:36] VITALS: BP 105/59
[2022-02-03 20:00] VITALS: BP 105/59
[2022-02-03] MEDS: SIMVASTATIN 20 MG TABLET PO SCH (21:53)
[2022-02-03] MEDS: VANCOMYCIN 1.25 GM in IV D5W 250 ML IV SCH (23:18)
[2022-02-03] MEDS: IV D5/0.45 NACL 1,000 ML IV PRN (23:19)
--- NOTE | 2022-02-04 00:45 | NUR ---
blood sugar 100 at this time
[2022-02-04] MEDS: BLOOD SUGAR DIAGNOSTIC 1 EACH STRIP IN SCH ×3 (05:52→18:03)
--- NOTE | 2022-02-04 06:37 | NUR ---
ENDING NOTES: ALERT WILL SMILE WHEN SPOKEN TO NONVERBAL REACHES OUT TO HOLD THE NURSES HAND AND KISS HER SHE IS COOPERATIVE AND GOOD ABOUT BEING TURNED AND REPOSITIONED MESSER DRAINAGE CLEAR YELLOW HAND CONTROL SYSTEM MANAGER STRONG
[2022-02-04 06:48] LABS: CALCIUM, SERUM 9.3 mg/dL (8.5-10.1); CREATININE 1.1 mg/dL (0.6-1.3); POTASSIUM 4.3 mmol/L (3.5-5.1)
[2022-02-04 08:00] VITALS: BP 118/68
[2022-02-04] MEDS: CARBIDOPA/LEVODOPA 25/100 MG 1 UDTAB PO SCH ×3 (08:48→16:37)
[2022-02-04] MEDS: HYDROCHLOROTHIAZIDE 25 MG TABLET PO SCH (08:50)
[2022-02-04] MEDS: MEMANTINE HCL 5 MG TABLET PO SCH (08:50)
[2022-02-04] MEDS: FENOFIBRATE NANOCRYS (145 MG) 145 MG TABLET PO SCH (08:50)
[2022-02-04] MEDS: ALLOPURINOL 100 MG TABLET PO SCH (08:51)
[2022-02-04] MEDS: ASPIRIN EC 81 MG TABLET.DR PO SCH (08:51)
[2022-02-04] MEDS: LOSARTAN POTASSIUM 50 MG TABLET PO SCH (08:51)
[2022-02-04] MEDS: DONEPEZIL 5 MG TABLET PO SCH (08:51)
[2022-02-04] MEDS: METOPROLOL TARTRATE 25 MG TABLET PO SCH ×2 (09:23→16:41)
[2022-02-04] MEDS: VANCOMYCIN 1.25 GM in IV D5W 250 ML IV SCH (09:26)
[2022-02-04] MEDS: ENOXAPARIN SODIUM 30 MG/0.3 ML DISP.SYRIN SQ SCH (12:24)
[2022-02-04 16:00] VITALS: BP 105/52
[2022-02-04 16:41] VITALS: BP 105/52
--- NOTE | 2022-02-04 18:50 | NUR ---
RN CLOSING NOTES PATIENT LYING IN BED AWAKE. A/O X1, NONVERBAL BUT RESPONSIVE TO VERBAL STIMULI. PATIENT IS BREATHING EVENLY AND NONLABORED ON ROOM AIR. NO S/SX OF SOB OR DISTRESS.NO S/S C/O PAIN OR DISCOMFORT. DISCHARGE ORDER IN PLACE, FAMILY TO CONCRETE CRUSHER LOADER OPERATOR LATER THIS EVENING, DISCHARGE INSTRUCTIONS WERE GIVEN BOTH VERBALLY AND IN WRITTEN FORM, FAMILY VERBALIZED UNDERSTANDING. HOME HEALTH ARRANGED. ALL BELONGINGS ACCOUNTED FOR, BELONGINGS FORM SIGNED. PATIENT KEPT CLEAN AND DRY DURING SHIFT, TURNED AND REPOSITIONED PER PROTOCOL. SAFETY MEASURES IN PLACE. CALL LIGHT AND TABLE IN REACH.ASPIRATION PRECAUTION. BED LOCKED IN THE LOWEST POSITION. WILL ENDORSE TO ONCOMING SHIFT
--- NOTE | 2022-02-04 20:10 | NUR ---
MS WIDE AREA NETWORK ADMINISTRATOR PATIENT STAFF VETERINARIAN BY CAREGIVER @1939, PATIENT IV LINE TAKEN OFF. ID BAND DISCARDED. DISCHARGE PAPERS GIVEN TO CAREGIVER. PER CAREGIVER, SHE TOOK HOME PATIENT'S BELONGINGS YESTERDAY, NO BELONGINGS TAKEN HOME BY DISCHARGE. CAREGIVER BROUGHT NEW CLOTHES FOR PATIENT. BLOOD SUGAR CHECKED BEFORE HAND. BS 116. NO S/S OF APPARENT DISTRESS IN ROOM AIR. V/S FOLLOWS: 116/60, HR-110, RR-20, T-97.8, SATURATION 99%. TAKEN DOWN BY WHEELCHAIR @2001. ACCOMPANIED BY MOHAN ALMANZA. PATIENT AND CAREGIVER GOING HOME VIA PRIVATE TRANSPORTATION.
== END 2022-02-04 20:02 | disposition home health service (06) | DRG 640 ==
LOC: ER 09:20 → TELE 13:24 → MED 02-02 18:54
PROVIDERS: ADMIT Legal Medicine; ATTEND Legal Medicine
DX: E86.0 Dehydration (principal); G92.8 Other toxic encephalopathy; E87.1 Hypo-osmolality and hyponatremia; I48.91 Unspecified atrial fibrillation; I10 Essential (primary) hypertension; I25.10 Atherosclerotic heart disease of native coronary artery without angina pectoris; E78.5 Hyperlipidemia, unspecified; F02.80 Dementia in other diseases classified elsewhere, unspecified severity, without behavioral disturbance, psychotic disturbance, mood disturbance, and anxiety; G20 Parkinson's disease; G30.9 Alzheimer's disease, unspecified; E11.649 Type 2 diabetes mellitus with hypoglycemia without coma; Z79.84 Long term (current) use of oral hypoglycemic drugs; Z20.822 Contact with and (suspected) exposure to COVID-19; R53.1 Weakness
CPT/HCPCS: 36415; 70450-TC; 71045-TC; 80048-TC; 80061-TC; 80076-TC; 81001; 82962-TC; 83605-TC; 83735-TC; 84100-TC; 84484-TC; 85025-TC; 85730-TC; 87040-TC; 87081-TC; 87086-TC; 92526; 92611-TC; 97112-TC; 97530-TC; C9803; G0378; J0696; J1650; J3370; J3490; J7030; J7050; J7060; Q9967

== ENCOUNTER 2022-03-22 09:06 | Inpatient (IN) | payer MEDICARE, OTHER ==
[~2022-03-22] VITALS: Ht 162.6 cm; Wt 64.0 kg
[2022-03-22] VITALS (14 sets, daily range): BP systolic 97–137; BP diastolic 46–78
[~2022-03-22 09:06] MED LIST changes: -LEVO500T90 PO
--- NOTE | 2022-03-22 09:20 | NUR ---
PREPRALE PUSES PALPATBEL SKIN COLD extramity intubated esther ett on lt side fr # 7.5 faraz line 22ml connected to vent sitting AC 12 TV 450 FIO2 1005 peep 5 o2 sat 1005
[2022-03-22] MEDS ORDERED: NOREPINEPHRINE 8 MG in IV NS 0.9% 242 ML IV PRN (09:30)
[2022-03-22] MEDS ORDERED: IV NS 0.9% 1,000 ML BAG IV ONE ×2 (09:30→11:00)
[2022-03-22] MEDS ORDERED: HYDR453.3 TP (09:48)
[2022-03-22] MEDS ORDERED: ESCI10TA PO (09:48)
[2022-03-22] MEDS ORDERED: LORA-258 PO (09:48)
[2022-03-22] MEDS ORDERED: DIPH25CA51 PO (09:48)
[2022-03-22] MEDS ORDERED: ACET-2605 PO (09:48)
[2022-03-22] MEDS ORDERED: ERGO500093 PO (09:48)
--- NOTE | 2022-03-22 10:00 | NUR ---
coved swab swnd to lab
--- NOTE | 2022-03-22 10:15 | NUR ---
INSERTED CENTER LINE BY DR ASHBY UNDER US GIDED ON RT SUP CLEAVIAN NO DIFFECULTY 3 LUMEN NO BLEEDING ON SITE NO SWALLEN BLOOD DROW TO LAB BIOPATCH APPLED DRESSING WITH OSITE
--- NOTE | 2022-03-22 10:21 | NUR ---
CALLED NURSING SUP REGARDING PT BED
[2022-03-22 10:30] LABS: BILIRUBIN,URINE NEGATIVE (NEGATIVE); COLOR,URINE YELLOW (YELLOW); LEUKOCYTE ESTERASE ,URINE NEGATIVE (NEGATIVE); NITRITE, URINE NEGATIVE (NEGATIVE); PROTEIN,URINE 30 mg/dl (NEGATIVE); UGLUCOSE NEGATIVE (NEGATIVE); UROBILINOGEN,URINE 0.2 EU/dL (0.2)
--- NOTE | 2022-03-22 10:30 | NUR ---
PT RESPONDED TO IVF NS INFUSED AND PATENT AFTER ONE LITER NS
[2022-03-22 10:38] LABS: BASOPHILS # (AUTO) 0.1 K/uL (0.0-0.2); BASOPHILS % (AUTO) 0.4 % (0.0-2.0); EOSINOPHILS % (AUTO) 1.3 % (0.0-6.0); HEMATOCRIT 36 % (33-45); HEMOGLOBIN 11.3 g/dL (11.5-14.8); LYMPHOCYTES # (AUTO) 4.8 K/uL (0.8-4.8); LYMPHOCYTES % (AUTO) 39.3 % (20.0-44.0); MEAN CORPUSCULAR HGB CONC 32 g/dl (31.0-36.0); MEAN CORPUSCULAR VOLUME 100 fL (82-100); MONOCYTES # (AUTO) 0.5 K/uL (0.1-1.30); MONOCYTES % (AUTO) 3.9 % (2.0-12.0); NEUTROPHILS # (AUTO) 6.8 K/uL (1.8-8.9); NEUTROPHILS % (AUTO) 55.1 % (43.0-81.0); PLATELET COUNT (AUTO) 159 K/uL (150-450); RED BLOOD CELL COUNT(AUTO) 3.59 MIL/uL (4.0-5.2); WHITE BLOOD COUNT (AUTO) 12.3 K/uL (4.3-11.0)
[2022-03-22 10:57] LABS: CALCIUM, SERUM 8.1 mg/dL (8.5-10.1); CARBON DIOXIDE 16 mmol/L (21-32); CHLORIDE 110 mmol/L (98-107); CREATININE 1.4 mg/dL (0.6-1.3); GLUCOSE 197 mg/dL (74-106); POTASSIUM 3.8 mmol/L (3.5-5.1); SODIUM SERUM 143 mmol/L (136-145); UREA NITROGEN, BLOOD 17 mg/dL (7-18)
[2022-03-22 11:00] LABS: ABG BASE EXCESS -13.5 mmol/L; ABG PCO2 35.7 mmHg (35.0-45.0); ABG PH 7.199 (7.350-7.450); ABG PO2 431.6 mmHg (75.0-100.0); COHb 0.3 % (0.5-1.5); MetHb 0.3 % (0.0-1.5); O2Hb 98.8 % (94.0-97.0); SITE, ABG Right Radial
[2022-03-22] MEDS ORDERED: VANCOMYCIN 1 GM in IV D5W 250 ML IV ONE (11:00)
[2022-03-22] MEDS ORDERED: PIPERACILLIN /TAZOBACTAM 3.375 G in IV D5W 50 ML IV ONE (11:00)
--- NOTE | 2022-03-22 11:00 | NUR ---
SON AT BED SIDE CONDITION UP DATE VS STABLE HOB 45 % ALL TIME
[2022-03-22 11:03] LABS: ALANINE AMINOTRANSFERASE 39 U/L (12-78); ALBUMIN 2.9 g/dL (3.4-5.0); ALKALINE PHOSPHATASE 22 U/L (46-116); ASPARTATE AMINOTRANSFERASE 49 U/L (15-37); BILIRUBIN,DIRECT 0.2 mg/dL (0.0-0.2); BILIRUBIN,TOTAL 0.4 mg/dL (0.2-1.0)
--- NOTE | 2022-03-22 11:13 | NUR ---
abg done decrease fio 50% contenue and closly observ
[2022-03-22 11:22] LABS: BACTERIA,URINE Few /HPF (None Seen); SQUAMOUS EPITHELIAL CELL,UR Many /HPF (None Seen); WBC,URINE 0-2 /HPF (0-3)
[2022-03-22] MEDS ORDERED: ASPIRIN 300 MG/SUPP.RECT RC SCH (11:30)
--- NOTE | 2022-03-22 11:33 | NUR ---
HAND OFF TO ALEIDA RN TO ROOM 258 STEPHY OBSERVE PT SON AT BED SIDE AND FUULY DENSURE GIVEN TO SON
--- NOTE | 2022-03-22 11:50 | NUR ---
DR. DISLA HERE SEE AND EXAMIN PT SOKE WITH SON PLAN OF CARE PT TRANSFER TO ROOM 258
[2022-03-22] MEDS ORDERED: ATROPINE SULFATE 1 MG/10 ML DISP.SYRIN IV ONE (12:02)
[2022-03-22] MEDS ORDERED: EPINEPHRINE (1:10,000) SYRINGE 1 MG/10 ML DISP.SYRIN IVP ONE (12:02)
--- NOTE | 2022-03-22 12:10 | NUR ---
ADMISSION NOTES RECIEVED PT FROM ER DX OF CARDIAC ARREST, SEPSIS, AND ALOC. PT IS A/O X 0, FULL CODE WITH NKA, ON MECH VENT, PT WITH SHILEY 7.5/22, RATE 24, TV 450, FIO2 50%, PEEP 5. TELEMETRY READS ST AT 170. IV ACCESS AT RIGHT IJ TLC. CRITICAL LABS ARE TROP. 156, LACTIC ACID 7.1 AND PH 7.2. GRANDDAUGHTER'S NUMBER IS ([id number]). WILL CONT. TO MONITOR THROUGHOUT SHIFT.
[2022-03-22] MEDS ORDERED: PIPERACILLIN /TAZOBACTAM 3.375 G VIAL IV ONE (12:15)
[2022-03-22] MEDS ORDERED: PIPERACILLIN /TAZOBACTAM 3.375 G in IV D5W 50 ML IV SCH (13:00)
[2022-03-22] MEDS ORDERED: MORPHINE SULFATE INJ 2 MG/ML DISP.SYRIN IV PRN (13:00)
[2022-03-22] MEDS ORDERED: ACETAMINOPHEN 325 MG TABLET PO PRN (13:00)
[2022-03-22] MEDS ORDERED: DIGOXIN INJ 0.5 MG/2 ML AMPUL IV ONE (13:00)
[2022-03-22] MEDS ORDERED: MAG HYDROX/AL HYDROX/SIMETH 30 ML UDC PO PRN (13:00)
[2022-03-22] MEDS ORDERED: Z GUARD REMEDY 4 OZ OINT TP PRN (13:00)
[2022-03-22] MEDS ORDERED: ONDANSETRON HCL/PF 4 MG/2 ML VIAL IVP PRN (13:00)
[2022-03-22] MEDS ORDERED: MAGNESIUM HYDROXIDE 30 ML UDC PO PRN (13:00)
[2022-03-22] MEDS: ZOSYN IVPB 2.25 G in IV D5W 50ml IV SCH ×2 (13:00→18:14)
[2022-03-22] MEDS ORDERED: ENOXAPARIN SODIUM 30 MG/0.3 ML DISP.SYRIN SQ SCH (13:10)
[2022-03-22] MEDS: PROPOFOL 100 ML IV PRN ×2 (13:18→18:33)
[2022-03-22] MEDS: IV NS 0.9% 1,000 ML IV PRN (13:24)
[2022-03-22] MEDS ORDERED: PHENYLEPHRINE 50 MG in IV NS 0.9% 245 ML IV PRN (13:30)
[2022-03-22] MEDS ORDERED: VANCOMYCIN 1 GM in IV D5W 250 ML IV SCH (14:00)
[2022-03-22] MEDS ORDERED: DEXTROSE 50%-WATER 50 ML DISP.SYRIN IV PRN (14:00)
[2022-03-22] MEDS: BLOOD SUGAR DIAGNOSTIC 1 EACH STRIP IN SCH (17:22)
[2022-03-22] MEDS: INSULIN REGULAR, HUMAN 100 UNIT/ML 3 ML VIAL SQ PRN (17:29)
--- NOTE | 2022-03-22 18:23 | NUR ---
RN NOTES RESPIRATORY AND XRAY TEAM ON THE WAY TO TAKE PT FOR CT OF ABDOMEN AND HEAD.
--- NOTE | 2022-03-22 19:30 | NUR ---
RN NOTES RECEIVED CARE OF PATIENT FROM AM NURSE. PATIENT WITH ET TUBE ON MECHANICAL VENTILATION WITH ORDERED SETTINGS, TOLERATING WELL WITH O2 SAT 100%. PATIENT ON TELE MONITOR SHOWING CONTROLLED AFIB WITH HR OF 77, NO DISTRESS NOTED ON PATIENT. WITH OGT. CLAMPED, POSITIVE PLACEMENT CONFIRMED THROUGH AUSCULTATION. PATIENT WITH MESSER CATH DRAINING YELLOW URINE. IV ACCESS ON R IJ, PATENT AND RUNNING DIPRIVAN DRIP AT 45 MCG/KG/MIN AND NS AT 75ML/HR. SAFETY MEASURES IMPLEMENTED PER HOSPITAL PROTOCOL. WILL CONTINUE TO MONITOR PATIENT.
[2022-03-22] MEDS: DIGOXIN INJ 0.5 MG/2 ML AMPUL IV SCH (20:01)
[2022-03-23] VITALS (25 sets, daily range): BP systolic 100–148; BP diastolic 52–80
[2022-03-23] MEDS: BLOOD SUGAR DIAGNOSTIC 1 EACH STRIP IN SCH ×4 (00:18→17:02)
[2022-03-23] MEDS: ZOSYN IVPB 2.25 G in IV D5W 50ml IV SCH ×4 (01:11→18:01)
[2022-03-23] MEDS: DIGOXIN INJ 0.5 MG/2 ML AMPUL IV SCH (01:12)
[2022-03-23] MEDS: IV NS 0.9% 1,000 ML IV PRN ×2 (03:06→22:50)
[2022-03-23] MEDS: PROPOFOL 100 ML IV PRN ×4 (04:19→21:10)
[2022-03-23 04:30] LABS: BASOPHILS % (AUTO) 0.3 % (0.0-2.0); EOSINOPHILS % (AUTO) 0.2 % (0.0-6.0); HEMATOCRIT 32 % (33-45); HEMOGLOBIN 10.9 g/dL (11.5-14.8); LYMPHOCYTES # (AUTO) 1.1 K/uL (0.8-4.8); LYMPHOCYTES % (AUTO) 12.1 % (20.0-44.0); MEAN CORPUSCULAR HGB CONC 35 g/dl (31.0-36.0); MEAN CORPUSCULAR VOLUME 94 fL (82-100); MONOCYTES # (AUTO) 0.5 K/uL (0.1-1.30); MONOCYTES % (AUTO) 5.6 % (2.0-12.0); NEUTROPHILS # (AUTO) 7.4 K/uL (1.8-8.9); NEUTROPHILS % (AUTO) 81.8 % (43.0-81.0); PLATELET COUNT (AUTO) 147 K/uL (150-450); RED BLOOD CELL COUNT(AUTO) 3.36 MIL/uL (4.0-5.2)
[2022-03-23 04:41] LABS: ALANINE AMINOTRANSFERASE 32 U/L (12-78); ALBUMIN 2.8 g/dL (3.4-5.0); ALKALINE PHOSPHATASE 21 U/L (46-116); ASPARTATE AMINOTRANSFERASE 37 U/L (15-37); BILIRUBIN,TOTAL 0.4 mg/dL (0.2-1.0); CALCIUM, SERUM 8.1 mg/dL (8.5-10.1); CARBON DIOXIDE 19 mmol/L (21-32); CHLORIDE 110 mmol/L (98-107); GLUCOSE 115 mg/dL (74-106); MAGNESIUM 1.6 mg/dL (1.8-2.4); PHOSPHORUS 2.6 mg/dL (2.5-4.9); POTASSIUM 3.3 mmol/L (3.5-5.1); SODIUM SERUM 141 mmol/L (136-145); TOTAL PROTEIN, SERUM 5.8 g/dL (6.4-8.2); UREA NITROGEN, BLOOD 18 mg/dL (7-18)
[2022-03-23 04:48] LABS: CHOLESTEROL 107 mg/dL (<200); HDL CHOLESTEROL 17 mg/dL (40-60); LDL 71 mg/dL (0-99); TRIGLYCERIDES 179 mg/dL (30-150)
--- NOTE | 2022-03-23 06:46 | NUR ---
RN CLOSING NOTES WILL ENDORSE CARE OF PATIENT TO AM NURSE. PATIENT REMAINS INTUBATED UNDER MECHANICAL VENTILATION WITH ORDERED SETTINGS, PATIENT TOLERATING TREATMENT, O2 SAT 99%. PATIENT SEDATED WITH PROPOFOL AT 45 MCG/KG/MIN, NO DISTRESS NOTED ON PATIENT. ALL DUE MEDS GIVEN AND ALL PATIENT NEEDS ANTICIPATED AND MET THROUGHOUT THE SHIFT. NO SIGNIFICANT FINDINGS UPON ALL NURSING ASSESSMENTS. SAFETY MEASURES IMPLEMENTED. WILL ENDORSE TO AM NURSE FOR LINDA.
--- NOTE | 2022-03-23 07:07 | NUR ---
RN OPENING NOTES PATIENT REMAINS INTUBATED UNDER MECHANICAL VENTILATION WITH ORDERED SETTINGS, O2 SAT 99%. PATIENT SEDATED WITH PROPOFOL AT 45 MCG/KG/MIN, AND NS @ 75CC/HR. NO DISTRESS NOTED ON PATIENT. IV ACCESS NOTED ON RIGHT IJ TLC, AND LEFT AC 20G. PATENT AND INTACT. SAFETY MEASURES IMPLEMENTED. WILL CONT. TO MONITOR PT THROUGHOUT THE SHIFT.
[2022-03-23] MEDS: POTASSIUM CL. PREMIX PERIPHER. 50 ML IV SCH ×4 (07:59→11:33)
[2022-03-23] MEDS: Magnesium 1GM/D5W 100ML PREMIX 100 ML IV SCH ×2 (07:59→09:08)
[2022-03-23] MEDS ORDERED: VANCOMYCIN 0.75 GM in IV D5W 250 ML IV SCH ×2 (08:30→14:00)
--- NOTE | 2022-03-23 09:02 | NUR ---
RN NOTES [facility] 27.3 HELD PRISCILA.
[2022-03-23] MEDS: PANTOPRAZOLE 40 MG VIAL IV SCH (09:08)
[2022-03-23] MEDS: ENOXAPARIN SODIUM 40 MG/0.4 ML DISP.SYRIN SQ SCH (09:09)
--- NOTE | 2022-03-23 09:20 | NUR ---
WOUND CARE CONSULT: PT NOT TURNED AT THIS TIME TO ALLOW REST. BREASTFOLDS HAVE DRY LESIONS, PRESENT ON ADMISSION. PER ADMISSION PHOTO, THERE IS INTACT DEEP TISSUE INJURY TO SACRAL AREA, PRESENT ON ADMISSION. RECOMMENDATIONS MADE FOR SKIN PROTECTION. DISCUSSED WITH NURSING STAFF. PT IS ON [facility] BED. MD IN AGREEMENT WITH PLAN OF CARE. Addendum: 03/23/22 at 0921 by IVETT DUFFY WNDNU Amended: Links added.
[2022-03-23 10:16] LABS: ABG BASE EXCESS -5.4 mmol/L; ABG OXYGEN SATURATION 97.3 % (92.0-98.5); ABG PCO2 22.8 mmHg (35.0-45.0); ABG PH 7.477 (7.350-7.450); ABG PO2 95.8 mmHg (75.0-100.0); AaDO2 91.3 mmHg; COHb 0.4 % (0.5-1.5); O2Hb 96.9 % (94.0-97.0); SITE, ABG Right Radial; VENT MODE, BG SIMV 4 PS 15 30% +5
[2022-03-23] MEDS: INSULIN REGULAR, HUMAN 100 UNIT/ML 3 ML VIAL SQ PRN ×2 (11:39→17:02)
--- NOTE | 2022-03-23 12:29 | NUR ---
RN NOTES PT NOW OFF DIPRIVAN. PT IS CALM AND COOPERATIVE.
[2022-03-23] MEDS: VANCOMYCIN 1 GM in IV D5W 250 ML IV SCH (13:00)
--- NOTE | 2022-03-23 18:28 | NUR ---
RN CLOSING NOTES PT IS RESTING WITH NO S/S OF DISTRESS. ALL VITAL SIGNS WNL. IV ACCESS AT RIJ TLC AND LAC 20G, PATENT AND INTACT. DIPRIVAN @ 25 MCG/KG/MIN AND NS @ 75 CC/HR. TELE MONITOR SHOWS CONTROLLED A FIB. VENT SETTINGS ORDERED. PT SATING AT 100%. ALL SAFETY MEASURES IN PLACE, BED IN LOWEST LOCKED POSITION, SR UP X2, WILL ENDORSE TO BURNER MACHINE OPERATOR NURSE FOR LINDA.
--- NOTE | 2022-03-23 19:32 | NUR ---
RN OPENING NOTES RECEIVED CARE OF PATIENT FROM AM NURSE. PATIENT WITH ET TUBE ON MECHANICAL VENTILATION WITH ORDERED SETTINGS, TOLERATING WELL WITH O2 SAT 100%. PATIENT ON TELE MONITOR SHOWING CONTROLLED AFIB WITH HR OF 95, NO DISTRESS NOTED ON PATIENT. WITH OGT. CLAMPED, POSITIVE PLACEMENT CONFIRMED THROUGH AUSCULTATION. PATIENT WITH MESSER CATH DRAINING YELLOW URINE. IV ACCESS ON R IJ, PATENT AND RUNNING DIPRIVAN DRIP AT 25 MCG/KG/MIN AND NS AT 75ML/HR. SAFETY MEASURES IMPLEMENTED PER HOSPITAL PROTOCOL. WILL CONTINUE TO MONITOR PATIENT.
[2022-03-24] VITALS (29 sets, daily range): BP systolic 109–151; BP diastolic 37–92
[2022-03-24] MEDS: BLOOD SUGAR DIAGNOSTIC 1 EACH STRIP IN SCH ×4 (00:19→18:30)
[2022-03-24] MEDS: ZOSYN IVPB 2.25 G in IV D5W 50ml IV SCH ×4 (00:36→18:21)
[2022-03-24] MEDS: PROPOFOL 100 ML IV PRN (04:30)
[2022-03-24 04:50] LABS: BASOPHILS % (AUTO) 0.4 % (0.0-2.0); EOSINOPHILS % (AUTO) 1.9 % (0.0-6.0); HEMATOCRIT 30 % (33-45); LYMPHOCYTES # (AUTO) 1.3 K/uL (0.8-4.8); LYMPHOCYTES % (AUTO) 16.9 % (20.0-44.0); MEAN CORPUSCULAR HGB CONC 34 g/dl (31.0-36.0); MEAN CORPUSCULAR VOLUME 95 fL (82-100); MONOCYTES # (AUTO) 0.4 K/uL (0.1-1.30); MONOCYTES % (AUTO) 5.8 % (2.0-12.0); NEUTROPHILS # (AUTO) 5.6 K/uL (1.8-8.9); PLATELET COUNT (AUTO) 139 K/uL (150-450); RED BLOOD CELL COUNT(AUTO) 3.09 MIL/uL (4.0-5.2); WHITE BLOOD COUNT (AUTO) 7.4 K/uL (4.3-11.0)
[2022-03-24 05:13] LABS: CARBON DIOXIDE 19 mmol/L (21-32); CHLORIDE 113 mmol/L (98-107); CREATININE 0.9 mg/dL (0.6-1.3); GLUCOSE 83 mg/dL (74-106); MAGNESIUM 2.1 mg/dL (1.8-2.4); POTASSIUM 3.4 mmol/L (3.5-5.1); SODIUM SERUM 143 mmol/L (136-145); UREA NITROGEN, BLOOD 11 mg/dL (7-18)
--- NOTE | 2022-03-24 06:39 | NUR ---
RN CLOSING NOTES WILL ENDORSE CARE OF PATIENT TO AM NURSE. PATIENT REMAINS INTUBATED UNDER MECHANICAL VENTILATION WITH ORDERED SETTINGS, PATIENT TOLERATING TREATMENT, O2 SAT 100%. PATIENT SEDATED WITH PROPOFOL AT 35 MCG/KG/MIN, NO DISTRESS NOTED ON PATIENT. ALL DUE MEDS GIVEN AND ALL PATIENT NEEDS ANTICIPATED AND MET THROUGHOUT THE SHIFT. NO SIGNIFICANT FINDINGS UPON ALL NURSING ASSESSMENTS. SAFETY MEASURES IMPLEMENTED. WILL ENDORSE TO AM NURSE FOR LINDA.
--- NOTE | 2022-03-24 07:15 | NUR ---
RN NOTES PT SLEEPING ON RIGHT SIDE WITH PILLOW ON LEFT SIDE FOR SUPPORT AND COMFORT, ET TUBE ON MECHANICAL VENTILATION WITH ORDERED SETTINGS IN PLACE, , TOLERATING WELL WITH O2 SAT 100%, PATIENT ON TELE MONITOR SHOWING CONTROLLED A- FIB WITH HR FLUCTUATING BETWEEN 92- 95% , NO DISTRESS NO SOB, AND NO C/O PAIN AT THIS TIME, CLAMPED POSITIVE PLACEMENT CONFIRMED THROUGH AUSCULTATION. PATIENT WITH MESSER CATH DRAINING YELLOW CLEAR - URINE. IV ACCESS ON R IJ, PATENT AND RUNNING DIP-RIVAN DRIP AT 25 MCG/KG/MIN AND NS AT 75ML/HR. SAFETY MEASURES IMPLEMENTED PER HOSPITAL PROTOCOL. WILL CONTINUE TO MONITOR PATIENT.
[2022-03-24] MEDS: PANTOPRAZOLE 40 MG VIAL IV SCH (07:57)
[2022-03-24] MEDS: POTASSIUM CL. PREMIX PERIPHER. 50 ML IV SCH ×3 (08:00→11:27)
[2022-03-24] MEDS ORDERED: DC PROPOFOL WHEN EXTUBATED XX PRN (08:00)
--- NOTE | 2022-03-24 08:00 | NUR ---
RN NOTES MD ORDERS CARRIED OUT AND ADMIN, PROCESS CONTROL BOARD OPERATOR AND MYSELF OBSERVED AND ASSESSED SKIN NO NEW CHANGES AT THIS TIME, CLEANSED PT AND PROVIDED DINORAH CARE, CHANGE OF LINENS AND CHUCKS ONE LIQUID BM NOTED, BROWN NORMAL BM ODOR NOTED, NO C/O PAIN , MD ORDER PT TO BE OFF SEDATION AT 0800 WILL MONITOR AND VS AND RR CLOSELY, AND AN ORDER TO EXTUBATE IN PLACE AT THIS TIME.
--- NOTE | 2022-03-24 08:46 | NUR ---
WOUND CARE FOLLOW UP: PT SEEN FOR SACRAL DEEP TISSUE INJURY WHICH IS INTACT. ALL SKIN PROTECTION MEASURES IN PLACE AND DISCUSSED WITH NURSING STAFF. PT IS ON [facility] B[facility]. IN AGREEMENT WITH PLAN OF CARE. Addendum: 03/24/22 at 0848 by IVETT DUFFY WNDNU Amended: Links added.
[2022-03-24 09:12] LABS: ABG BASE EXCESS -5.1 mmol/L; ABG OXYGEN SATURATION 97.6 % (92.0-98.5); ABG PCO2 25.2 mmHg (35.0-45.0); ABG PH 7.457 (7.350-7.450); ABG PO2 107.6 mmHg (75.0-100.0); AaDO2 76.7 mmHg; COHb 0.1 % (0.5-1.5); O2Hb 97.5 % (94.0-97.0); SITE, ABG Right Radial; VENT MODE, BG CPAP +5 PS10 30%
[2022-03-24] MEDS: ENOXAPARIN SODIUM 40 MG/0.4 ML DISP.SYRIN SQ SCH (09:18)
--- NOTE | 2022-03-24 09:25 | NUR ---
RN NOTES PT EXTUBATED A6 0925 / ORAL TUBE REMOVED, PT REMAIN STABLE AND VITAL SIGNS MONITORED CLOSELY, DINORAH CARE PROVIDED BM X 2 AT THIS TIME, F/C INTACT AND DRAINING PROPERLY, IVs INTACT PATENT AND FLUSHING AT THIS TIME, WILL CONTINUE TO MONITOR AND PROVIDE CARE.
--- NOTE | 2022-03-24 12:44 | NUR ---
RN NOTES PT REPOSITIONED FOR COMFORT AND BETTER POSITION TO BREATH, HOB RAISED HIGH FOWLERS POSITION, PT SUCTIONED FROM ORAL CAVITY, CLEAR WHITE MUCOUS NOTED, RESP CONGESTION NOTED IN CHEST AND UPPER BI-LATERAL LUNG LOBES, CONTINUE TO MONITOR AND PROVIDE COMFORT, LIGHTS DIM, BED LOW TO FLOOR FOR SAFETY AND WHEELS LOCKED, CALL LIGHT IN REACH.
--- NOTE | 2022-03-24 13:01 | NUR ---
RN NOTES LAB CALLED AND STATED "ONE BOTTLE OF BLOOD SHOWS A GRAM POSITIVE BIPIN" THIS WILL NEED TO BE IDENTIFIED AND THEN WE WILL BE NOTIFIED OF RESULT. WILL CONTINUE TO MONITOR PT AT THIS TIME, ZOSYN GIVEN PER MD ORDER NO ADVERSE REACTIONS NOTED AT THIS TIME, IV SITE IS PATENT IN TACT AND FLUSHING WELL AT THIS TIME.
[2022-03-24] MEDS: VANCOMYCIN 1 GM in IV D5W 250 ML IV SCH (14:18)
[2022-03-24] MEDS: IV NS 0.9% 1,000 ML IV PRN (16:33)
--- NOTE | 2022-03-24 18:32 | NUR ---
RN NOTES BED BATH GIVEN, TRACH CARE PROVIDED, FLEXI-SEAL IN PLACE , PATENT AND FLOWING NO LEAKING NOTED THERE HAD BEEN A KINK IN CORD AND IT WAS FIXED, F/C INTACT PATENT AND FLUSHING YELLOW CLEAR NO FOUL ODOR NOTED, IV SITES PATENT FLUSHING INTACT NO REDNESS NO INFILTRATION NO IRRITATION NOTED, G- TUBE PATENT FLUSHING AND INTACT, MECH VENT IN PLACE MAINTAINING AN OXYGEN SAT OF 06-100% DURING DAY SHIFT, CAP REFILL < 3 SECONDS ON RIGHT INDEX FINGER, REPOSITIONED ONTO RIGHT SIDE TO ELIMINATE PRESSURE ON COCCYX AREA AND DINORAH CARE GIVEN. KEPT CLEAN AND DRY, BED LOW TO FLOOR, WHEELS LOCKED AND CALL LIGHT IN REACH, ALL MD ORDERS CARRIED OUT AND NO SIDE EFFECTS NOTED AND NO ADVERSE SIDE EFFECTS FROM THE MEDICATIONS NOR THE BLOOD TRANSFUSION NOTED.
--- NOTE | 2022-03-24 19:23 | NUR ---
RN NOTES PT HOB ELEVATED TO SEMI HIGH FOWLERS FOR COMFORT AND SUPPORT, IV SITES INTACT PATENT AND FLUSHING, NO S/S OF RED NESS NOR ANY IRRITATION, PLEXI DERM PLACED ON COCCYX AREA AND BED BATH GIVEN, DINORAH CARE GIVEN, ALL SHEETS CHANGED AND PILLOWS PLACED UNDER EACH ELBOW AND HEELS TO RELIEVE PRESSURE, ALL NEEDS MET AND BED LOW TO FLOOR, AND WHEELS LOCKED, CALL LIGHT IN REACH, NS RUNNING AT 75ML PER HOUR AND ALL IV MEDICATIONS GIVEN AND CARRIED OUT NO NOTED ADVERSE SIDE EFFECTS TO ABT OR K NOTED AT THIS TIME, WILL CONTINUE TO MONITOR .
--- NOTE | 2022-03-24 19:35 | NUR ---
ICU/DATA WAREHOUSE SPECIALIST RECIEVED REPORT FROM DAY NURSE. SEE FLOWSHEET FOR ASSESSMENT. SEE IV SPREADSHEET FOR IV'S. PT WAS TURNED AND REPOSITIONED FOR COMFORT AND CARE WILL CONTINUE TO MONITOR THIS PT.
[2022-03-25] VITALS (27 sets, daily range): BP systolic 122–153; BP diastolic 62–82
[2022-03-25] MEDS: ZOSYN IVPB 2.25 G in IV D5W 50ml IV SCH ×5 (00:04→23:12)
[2022-03-25] MEDS: BLOOD SUGAR DIAGNOSTIC 1 EACH STRIP IN SCH ×5 (00:10→23:33)
--- NOTE | 2022-03-25 01:41 | NUR ---
PT NASOTRACHEAL SUCTIONED.
--- NOTE | 2022-03-25 05:43 | NUR ---
ICU/ICD 9 CODER PT WAS DEEP SUCTIONED BY RT, PT IS CURRENTLY SATURATION IS 99-100% ON 2 LITERS.
[2022-03-25 05:47] LABS: CALCIUM, SERUM 7.8 mg/dL (8.5-10.1); CARBON DIOXIDE 22 mmol/L (21-32); CHLORIDE 109 mmol/L (98-107); CREATININE 0.7 mg/dL (0.6-1.3); GLUCOSE 80 mg/dL (74-106); POTASSIUM 3.4 mmol/L (3.5-5.1); SODIUM SERUM 140 mmol/L (136-145); UREA NITROGEN, BLOOD 6 mg/dL (7-18)
[2022-03-25] MEDS: IV NS 0.9% 1,000 ML IV PRN (06:46)
--- NOTE | 2022-03-25 07:15 | NUR ---
RN Opening Note Received handoff report from previous Nurse. Patient is in bed awake and A&O x1, breathing even and unlabored on NC 2Lpm O2 sat 100%, RR 19. on bedside monitor displaying AFIB hr 90-105. R IJ with NS @ 75ml running, R AC #20 gauge intact and patent with good flush. patient has generalized edema, Amin catheter in place and patent draining straw color clear urine. Call light with in reach, side rails up x2, HOB @40 degree, bed locked for safety.
[2022-03-25] MEDS: PANTOPRAZOLE 40 MG VIAL IV SCH (09:00)
[2022-03-25] MEDS: POTASSIUM CL. PREMIX PERIPHER. 50 ML IV SCH ×2 (09:01→10:17)
[2022-03-25] MEDS: ENOXAPARIN SODIUM 40 MG/0.4 ML DISP.SYRIN SQ SCH (09:02)
[2022-03-25] MEDS ORDERED: LORAZEPAM 0.5 MG TABLET PO PRN (12:30)
[2022-03-25] MEDS: CARBIDOPA/LEVODOPA 25/100 MG 1 UDTAB PO SCH ×2 (13:37→17:32)
[2022-03-25] MEDS: VANCOMYCIN 1 GM in IV D5W 250 ML IV SCH (13:52)
--- NOTE | 2022-03-25 15:35 | NUR ---
iCU/RN PT TRANSFER TO TELE UNIT.V/S STABLE,AFEBRILE.NO PAIN REPORTED AT THIS TIME.PT EAT PUDING.NO S/S ASPIRATIONS NOTED.ALL MEDS ARE GIVEN ORDERED.REPORT GIVEN TO LAMAR /MAR.
[2022-03-25] MEDS: METFORMIN 500 MG TABLET PO SCH (17:32)
[2022-03-25] MEDS: INSULIN REGULAR, HUMAN 100 UNIT/ML 3 ML VIAL SQ PRN (17:38)
--- NOTE | 2022-03-25 18:29 | NUR ---
rn notes bs-135 mg/dl, coverage given, also administered scheduled medication, assist eating, tolerated 60% with assist. keep hob elevated, assist turn and repostion q 2 hr. endorsed oncoming nurse christa.
--- NOTE | 2022-03-25 19:54 | NUR ---
RN Opening Note pt Received in bed awake and A&O x1, breathing even and unlabored on NC 2Lpm O2 sat 98% iv access R IJ with NS @ 75ml running, R AC #20 gauge intact and patent.patient has generalized edema, Amin catheter in place and patent draining straw color clear urine. Call light with in reach, side rails up x2, bed locked for safety.
[2022-03-25] MEDS: SIMVASTATIN 20 MG TABLET PO SCH (21:02)
[2022-03-26] VITALS (10 sets, daily range): BP systolic 124–151; BP diastolic 61–94
[2022-03-26] MEDS: VANCOMYCIN 0.75 GM in IV D5W 250 ML IV SCH ×2 (01:19→14:37)
[2022-03-26] MEDS: ZOSYN IVPB 2.25 G in IV D5W 50ml IV SCH ×4 (05:22→23:07)
[2022-03-26] MEDS: BLOOD SUGAR DIAGNOSTIC 1 EACH STRIP IN SCH ×4 (06:01→22:01)
--- NOTE | 2022-03-26 06:27 | NUR ---
RN closing Note. pt in bed awake and A&O x1, breathing even and unlabored on NC 2Lpm O2 sat 97.8% iv access R IJ with NS @ 75ml running, R AC #20 gauge intact and patent.patient has generalized edema, Amin catheter in place and patent draining clear urine noted.Call light with in reach, side rails up x2, bed locked for safety.
[2022-03-26 07:17] LABS: CALCIUM, SERUM 8.1 mg/dL (8.5-10.1); CARBON DIOXIDE 21 mmol/L (21-32); CHLORIDE 108 mmol/L (98-107); CREATININE 0.8 mg/dL (0.6-1.3); GLUCOSE 101 mg/dL (74-106); POTASSIUM 3.4 mmol/L (3.5-5.1); SODIUM SERUM 139 mmol/L (136-145); UREA NITROGEN, BLOOD 6 mg/dL (7-18)
--- NOTE | 2022-03-26 07:25 | NUR ---
RN OPENING NOTE- PT IN BED AWAKE, ALERT ORIENTED TO PERSON ONLY. CONFUASION PRESENT, NO PAIN NOTED, IV NIKKI #20, TELE AFIB, SIDE RAILS UP, BED LOCKED, NEEDS ATTENDED. MONITOR / ASSIST
[2022-03-26] MEDS ORDERED: HYDROCHLOROTHIAZIDE 25 MG TABLET PO SCH (09:00)
[2022-03-26] MEDS ORDERED: METOPROLOL TARTRATE 25 MG TABLET PO SCH (09:00)
[2022-03-26] MEDS: ENOXAPARIN SODIUM 40 MG/0.4 ML DISP.SYRIN SQ SCH (09:58)
[2022-03-26] MEDS: CARBIDOPA/LEVODOPA 25/100 MG 1 UDTAB PO SCH ×3 (09:58→16:45)
[2022-03-26] MEDS: METFORMIN 500 MG TABLET PO SCH ×2 (09:58→16:45)
[2022-03-26] MEDS: ASPIRIN EC 81 MG TABLET.DR PO SCH (09:59)
[2022-03-26] MEDS: VALSARTAN 80 MG TABLET PO SCH (09:59)
[2022-03-26] MEDS: DONEPEZIL 5 MG TABLET PO SCH (09:59)
[2022-03-26] MEDS: ALLOPURINOL 100 MG TABLET PO SCH (10:00)
[2022-03-26] MEDS: MEMANTINE HCL 5 MG TABLET PO SCH (10:00)
[2022-03-26] MEDS: PANTOPRAZOLE 40 MG/PACK PACK PO SCH (10:02)
[2022-03-26] MEDS: ESCITALOPRAM OXALATE (10 MG) 10 MG TABLET PO SCH (10:02)
[2022-03-26] MEDS: METOPROLOL TARTRATE 25 MG TABLET PO SCH ×2 (10:02→16:45)
[2022-03-26] MEDS: POTASSIUM CHLORIDE 20 MEQ TAB.PRT.SR PO SCH ×2 (10:35→11:34)
[2022-03-26] MEDS: INSULIN REGULAR, HUMAN 100 UNIT/ML 3 ML VIAL SQ PRN ×3 (12:31→22:03)
--- NOTE | 2022-03-26 17:00 | NUR ---
RN NOTE- DR NINO ORDERED CENTRAL LINE DC AND MIDLINE PLACED. ORDERED AND INSERTED. CENTRAL LINE DC AT THIS TIME. TOLERATED WELL. PRESSURE HELD. NO BLEEDING. MONITOR.
--- NOTE | 2022-03-26 18:51 | NUR ---
RN CLOSING NOTE- PT IN BED AWAKE, ALERT ORIENTED TO PERSON ONLY. CONFUSION PRESENT, NO PAIN NOTED, IV NIKKI #20, MIDLINE #18 NIKKI INSERTED. BLOOD CX ARE + GRAM POS COCCI CHAINS. MD AWARE. TELE AFIB, SIDE RAILS UP, BED LOCKED, NEEDS ATTENDED. MONITOR / ASSIST
--- NOTE | 2022-03-26 19:10 | NUR ---
RN NOTES: RECEIVED AWAKE IN BED, SHE IS HOLDING HER DOLL, SMILING, PLEASANT MOOD, A/O TO SELF ONLY, SHE WILL RESPOND BY MAKING COOING SOUND AND LAUGHING LOUDLY, ON TELE MONITOR A.FIB CONTROLLED RATE-99, , ON MESSER CATH DRAINING INTO YELLOWISH COLORED URINE AT 100CC LEVEL, NO SEDIMENTS NOTED, ASPIRATION PRECAUTION OBSERVED, KEPT ON SEMI FOWLERS POSITION, WITH O2 AT 2L/MIN VIA NC, UPON ENDORSEMENT SHE IS TAKING IT OUT PUT IN BACK AGAIN, KEPT ON CLOSE WATCH, CENTRAL LINE SITE D/C ON RIGHT JUGULAR AREA, DRESSING INTACT, NO BLEEDING NOTED, MIDLINE ON THE NIKKI,PATENT.IV/ATB STILL ONGOING.ORIENTED TO UNIT AND STAFF, KEPT CALL LIGHT WITHIN EASY REACH, BED LOW AND LOCKED, FALL PRECAUTION OBSERVED.
--- NOTE | 2022-03-26 20:41 | NUR ---
RN NOTES: -SHE WAS MAKING SOME SOUND, BRIEF CHECK, SHE HAD BM, CLEAN AND CHANGE.KEPT COMFORTABLE IN BED.
--- NOTE | 2022-03-26 21:18 | NUR ---
RN NOTES; -NON LABORED BREATHING, ON AND OFF SHOUTING AND SAYING "WHAT,WHAT" REPEATEDLY, PRN MEDS GIVEN. -PER ENDORSEMENT SON INSTRUCTED TO GIVE HER SLEEPING PILL BEFORE BED TIME AROUND 2100.
[2022-03-26] MEDS: SIMVASTATIN 20 MG TABLET PO SCH (21:24)
--- NOTE | 2022-03-26 21:59 | NUR ---
RN NOTES: AWAKE MOST OF THE TIME, NO SHOUTING, BLOOD SUGAR CHECKED-153,INSULIN GIVEN PER SCALE, WILL CONTINUE TO MONITOR FOR ANY SIGN OF HYPER/HYPOGLYCEMIA.
[2022-03-27] VITALS (7 sets, daily range): BP systolic 112–147; BP diastolic 47–87
--- NOTE | 2022-03-27 00:44 | NUR ---
RN NOTES: 2X WATERY STOOL, BROWNISH IN COLOR, NO FOUL SMELL IN MODERATE AMOUNT, NOTIFIED, NO NEW ORDERS AT THIS TIME, CONTINUE TO OBSERVED AND NOTIFY FOR ANY SIGNIFICANT CHANGE.
[2022-03-27] MEDS: VANCOMYCIN 0.75 GM in IV D5W 250 ML IV SCH ×2 (01:37→14:55)
--- NOTE | 2022-03-27 03:35 | NUR ---
RN NOTES: AWAKE MOST OF THE TIME, SHE ONLY CLOSE HER EYES FOR FEW MINUTES THEN AWAKE AGAIN, SINGING "LA,LA,LA", NO SIGN OF PAIN OR DISOCMFORT, SPO2-98%, NO SOB,CONTINUE IN CLOSE WATCH.
--- NOTE | 2022-03-27 04:54 | NUR ---
RN NOTES: -ABLE TO SLEEP AND REST AT AROUND 430AM, TURNING AND REPOSITIONING DONE.
[2022-03-27] MEDS: ZOSYN IVPB 2.25 G in IV D5W 50ml IV SCH ×4 (05:18→23:14)
[2022-03-27] MEDS: BLOOD SUGAR DIAGNOSTIC 1 EACH STRIP IN SCH ×4 (05:44→23:14)
[2022-03-27] MEDS: INSULIN REGULAR, HUMAN 100 UNIT/ML 3 ML VIAL SQ PRN (05:46)
--- NOTE | 2022-03-27 05:53 | NUR ---
RN NOTES: -NOTED WITH SKIN DISCOLORATION ON THE RIGHT HAND SECONDARY TO BLOOD EXTRACTION, MONITORED.
--- NOTE | 2022-03-27 06:07 | NUR ---
RN NOTES: BLOOD SUGAR CHECKED-165, INSULIN GIVEN PER SCALE, MORNING CARE DONE, HAS TOTAL OF 4 LOOSE BOWEL MOVEMENT, NO MUCUS, NON FOUL SMELL.TOTAL URINE OUTPUT-500CC.
[2022-03-27 06:22] LABS: CALCIUM, SERUM 8.7 mg/dL (8.5-10.1); CARBON DIOXIDE 23 mmol/L (21-32); CHLORIDE 109 mmol/L (98-107); CREATININE 0.9 mg/dL (0.6-1.3); GLUCOSE 161 mg/dL (74-106); MAGNESIUM 1.7 mg/dL (1.8-2.4); POTASSIUM 3.2 mmol/L (3.5-5.1); SODIUM SERUM 141 mmol/L (136-145); UREA NITROGEN, BLOOD 8 mg/dL (7-18)
[2022-03-27 06:26] LABS: BASOPHILS % (AUTO) 0.5 % (0.0-2.0); EOSINOPHILS % (AUTO) 3.7 % (0.0-6.0); HEMATOCRIT 33 % (33-45); LYMPHOCYTES # (AUTO) 1.1 K/uL (0.8-4.8); LYMPHOCYTES % (AUTO) 16.1 % (20.0-44.0); MEAN CORPUSCULAR HGB CONC 33 g/dl (31.0-36.0); MEAN CORPUSCULAR VOLUME 97 fL (82-100); MONOCYTES # (AUTO) 0.8 K/uL (0.1-1.30); NEUTROPHILS # (AUTO) 4.7 K/uL (1.8-8.9); NEUTROPHILS % (AUTO) 68.7 % (43.0-81.0); PLATELET COUNT (AUTO) 205 K/uL (150-450); RED BLOOD CELL COUNT(AUTO) 3.45 MIL/uL (4.0-5.2); WHITE BLOOD COUNT (AUTO) 6.9 K/uL (4.3-11.0)
--- NOTE | 2022-03-27 07:30 | NUR ---
INTERNATIONAL STUDENT COUNSELOR OPENING NOTES RECEIVED PATIENT SLEEPING COMFORTABLY IN BED. NO SIGNS OF SOB AND RESTLESSNESS. NO PAIN AND DISCOMFORT AT THIS TIME. IV IS IN LEFT BASILIC VEIN, INTACT AND PATENT. SAFETY MEASURES INITIATED. WILL CONTINUE TO MONITOR FOR LINDA.
--- NOTE | 2022-03-27 07:49 | NUR ---
RN NOTES: PATIENT WAS ABLE TO SLEEP AND REST, ENDORSED TO MORNING SHIFT FOR CONTINUITY OF CARE, SHE HAD 4 BM, TO NOTIFY MD IF SHE STILL CONTINUE TO HAVE LIQUID STOOL, FOR RD F/U ON 03/26/22, LABS THIS MORNING, NO SIGN OF RESPIRATORY DISTRESS , NO PAIN OR DISCOMFORT. Addendum: 03/27/22 at 0753 by AILIN BARROS RN ADDED NOTES: URINE OUTPUT-500 CC VIA MESSER CATH.
--- NOTE | 2022-03-27 10:15 | NUR ---
DIRECT SALES PROFESSIONAL NOTES SEEN BY PHYSICAL THERAPIST.
[2022-03-27] MEDS: MEMANTINE HCL 5 MG TABLET PO SCH (10:22)
[2022-03-27] MEDS: ESCITALOPRAM OXALATE (10 MG) 10 MG TABLET PO SCH (10:22)
[2022-03-27] MEDS: CARBIDOPA/LEVODOPA 25/100 MG 1 UDTAB PO SCH ×3 (10:23→16:12)
[2022-03-27] MEDS: METOPROLOL TARTRATE 25 MG TABLET PO SCH ×2 (10:23→16:12)
[2022-03-27] MEDS: VALSARTAN 80 MG TABLET PO SCH (10:23)
[2022-03-27] MEDS: METFORMIN 500 MG TABLET PO SCH ×2 (10:23→16:12)
[2022-03-27] MEDS: ALLOPURINOL 100 MG TABLET PO SCH (10:23)
[2022-03-27] MEDS: ASPIRIN EC 81 MG TABLET.DR PO SCH (10:24)
[2022-03-27] MEDS: DONEPEZIL 5 MG TABLET PO SCH (10:24)
[2022-03-27] MEDS: POTASSIUM CHLORIDE 20 MEQ TAB.PRT.SR PO SCH ×3 (10:24→13:13)
[2022-03-27] MEDS: PANTOPRAZOLE 40 MG/PACK PACK PO SCH (10:24)
[2022-03-27] MEDS: Magnesium 1GM/D5W 100ML PREMIX 100 ML IV SCH ×2 (10:25→11:58)
[2022-03-27] MEDS: ENOXAPARIN SODIUM 40 MG/0.4 ML DISP.SYRIN SQ SCH (10:26)
--- NOTE | 2022-03-27 18:35 | NUR ---
RN MS NOTES PT IN BED, AWAKE, ALERT TO SELF, WITH CONFUSION, NO SIGN OF PAIN, NOT IN DISTRESS, CALL LIGHT WITHIN REACH, PM MEDS GIVEN ORDERED, PM CARE DONE, ASSISTED WITH MEALS, TOLERATING WELL, ALL NEEDS ATTENDED.
--- NOTE | 2022-03-27 19:35 | NUR ---
MS RN NOTES RECEIVED ON BED,A/O X1,CONFUSED,SPEAK FARSI,BREATHING NON LABORED,O2 IN USED AT 2L/NC TO KEEP O2 SAT ABOVE 90%.MESSER CATH IN PLACE DRAINING YELLOWISH URINE OUTPUT.WITH NIKKI MIDLINE FOR MEDS.ON PUREED DIET,CRUSHED MEDS,ASPIRATION PRECAUTION OBSERVED.REPOSITION PER PROTOCOL,CALL LIGHT IN REACH,NEEDS ANTICIPATED.
[2022-03-27] MEDS: SIMVASTATIN 20 MG TABLET PO SCH (21:17)
--- NOTE | 2022-03-27 23:00 | NUR ---
MS RN NOTES ACCU-CHECK BLOOD SUGAR CHECK 87,NO INSULIN COVERAGE.
[2022-03-28] MEDS: ZOSYN IVPB 2.25 G in IV D5W 50ml IV SCH ×3 (05:32→17:09)
--- NOTE | 2022-03-28 06:00 | NUR ---
MS RN NOTES ACCU-CHECK BLOOD SUGAR CHECK 97,NO INSULIN COVERAGE
[2022-03-28] MEDS: BLOOD SUGAR DIAGNOSTIC 1 EACH STRIP IN SCH ×3 (06:04→17:22)
[2022-03-28 06:43] LABS: BASOPHILS % (AUTO) 0.4 % (0.0-2.0); EOSINOPHILS % (AUTO) 4.3 % (0.0-6.0); HEMATOCRIT 34 % (33-45); HEMOGLOBIN 11.2 g/dL (11.5-14.8); LYMPHOCYTES # (AUTO) 1.4 K/uL (0.8-4.8); LYMPHOCYTES % (AUTO) 19.9 % (20.0-44.0); MEAN CORPUSCULAR HGB CONC 33 g/dl (31.0-36.0); MEAN CORPUSCULAR VOLUME 97 fL (82-100); MONOCYTES # (AUTO) 0.7 K/uL (0.1-1.30); MONOCYTES % (AUTO) 9.6 % (2.0-12.0); NEUTROPHILS # (AUTO) 4.5 K/uL (1.8-8.9); NEUTROPHILS % (AUTO) 65.8 % (43.0-81.0); PLATELET COUNT (AUTO) 226 K/uL (150-450); RED BLOOD CELL COUNT(AUTO) 3.49 MIL/uL (4.0-5.2); WHITE BLOOD COUNT (AUTO) 6.9 K/uL (4.3-11.0)
--- NOTE | 2022-03-28 06:44 | NUR ---
MS RN NOTES LAYING ON BED,REMAINS CONFUSED,DOLL AT BEDSIDE.IV ABX TOLERATED WELL.IN NO ACUTE DISTRESS
[2022-03-28 07:13] LABS: CALCIUM, SERUM 9.4 mg/dL (8.5-10.1); POTASSIUM 4.5 mmol/L (3.5-5.1)
--- NOTE | 2022-03-28 07:20 | NUR ---
MS RN OPENINGS NOTES RECEIVED PATIENT IN BED AWAKE, A/O X1, CONFUSED. FARSI SPEAKING. ON 2L OF O2 VIA NC WITH NO S/SX OF RESP DISTRESS NOTED. MESSER CATH IN PLACE DRAINING YELLOWISH URINE OUTPUT. NIKIK MIDLINE INTACT AND PATENT. SAFETY AND ASPIRATION PRECAUTIONS IN PLACE. WILL CONTINUE TO MONITOR PATIENT.
[2022-03-28 08:00] VITALS: BP 107/59
[2022-03-28] MEDS: ENOXAPARIN SODIUM 40 MG/0.4 ML DISP.SYRIN SQ SCH (08:37)
[2022-03-28] MEDS: DONEPEZIL 5 MG TABLET PO SCH (08:39)
[2022-03-28] MEDS: ALLOPURINOL 100 MG TABLET PO SCH (08:39)
[2022-03-28] MEDS: ASPIRIN EC 81 MG TABLET.DR PO SCH (08:39)
[2022-03-28] MEDS: MEMANTINE HCL 5 MG TABLET PO SCH (08:39)
[2022-03-28] MEDS: METOPROLOL TARTRATE 25 MG TABLET PO SCH ×2 (08:39→16:44)
[2022-03-28] MEDS: CARBIDOPA/LEVODOPA 25/100 MG 1 UDTAB PO SCH ×3 (08:39→16:44)
[2022-03-28] MEDS: METFORMIN 500 MG TABLET PO SCH ×2 (08:39→16:43)
[2022-03-28] MEDS: ESCITALOPRAM OXALATE (10 MG) 10 MG TABLET PO SCH (08:40)
[2022-03-28] MEDS: VALSARTAN 80 MG TABLET PO SCH (08:40)
[2022-03-28] MEDS: PANTOPRAZOLE 40 MG/PACK PACK PO SCH (08:40)
[2022-03-28] MEDS: VANCOMYCIN 0.75 GM in IV D5W 250 ML IV SCH (08:48)
[2022-03-28] MEDS ORDERED: GELATIN SPONGE,ABSORBABLE 1 SPONGE SPONGE TP ONE (12:00)
[2022-03-28 16:00] VITALS: BP 157/85
--- NOTE | 2022-03-28 19:13 | NUR ---
MS RN CLOSING NOTES PATIENT IN BED AWAKE. NO COMPLAINT OF PAIN AT THIS TIME. COMFORTABLE ON 2L OF O2 VIA NC WITH NO SOB NOTED. SAFETY MEASURES IN PLACE. ENDORSED TO THE PRESIDENT [facility] NURSE FOR LINDA
--- NOTE | 2022-03-28 19:30 | NUR ---
MS RN NOTES LYING COMFORTABLY ON BED,A/O X1,LIMITED VERBAL RESPONSE,SMILE A LOT WITH DOLL AT BEDSIDE.LEFT UPPER ARM MIDLINE INTACT AND PATENT.MESSER CATH IN PLACE DRAINING YELLOWISH OUTPUT.FALL PRECAUTION OBSERVED,BED ALARM,BED ON LOWEST POSITION AND LOCKED.WILL CONTINUE TO MONITOR STATUS.
[2022-03-28 20:00] VITALS: BP_SYST 114; BP_SYST 144; BP_DIAS 51; BP_DIAS 98
[2022-03-28] MEDS: SIMVASTATIN 20 MG TABLET PO SCH (22:09)
--- NOTE | 2022-03-29 | NUR ---
MS RN NOTES ACCU-CHECK BLOOD SUGAR CHECK 77,ORANGE JUICE WITH SUGAR GIVEN.
[2022-03-29] MEDS: BLOOD SUGAR DIAGNOSTIC 1 EACH STRIP IN SCH ×5 (00:02→23:15)
[2022-03-29] MEDS: ZOSYN IVPB 2.25 G in IV D5W 50ml IV SCH ×5 (00:03→23:15)
--- NOTE | 2022-03-29 05:30 | NUR ---
MS RN NOTES ACCU-CHECK BLOOD SUGAR CHECK 80,NO INSULIN COVERAGE.
--- NOTE | 2022-03-29 06:24 | NUR ---
MS RN NOTES CALM AND QUIET ON BED,NO EPISODE OF SOB NOTED,ALL DUE MEDS ADMINISTERED.MESSER CATH IN PLACE,FOR DISCHARGE PLANNING,NO DISTRESS.
[2022-03-29 07:09] LABS: BASOPHILS % (AUTO) 0.7 % (0.0-2.0); EOSINOPHILS % (AUTO) 4.1 % (0.0-6.0); HEMATOCRIT 33 % (33-45); HEMOGLOBIN 11.3 g/dL (11.5-14.8); LYMPHOCYTES # (AUTO) 1.3 K/uL (0.8-4.8); LYMPHOCYTES % (AUTO) 19.7 % (20.0-44.0); MEAN CORPUSCULAR HGB CONC 34 g/dl (31.0-36.0); MEAN CORPUSCULAR VOLUME 95 fL (82-100); MONOCYTES # (AUTO) 0.6 K/uL (0.1-1.30); MONOCYTES % (AUTO) 8.7 % (2.0-12.0); NEUTROPHILS # (AUTO) 4.3 K/uL (1.8-8.9); NEUTROPHILS % (AUTO) 66.8 % (43.0-81.0); PLATELET COUNT (AUTO) 241 K/uL (150-450); RED BLOOD CELL COUNT(AUTO) 3.46 MIL/uL (4.0-5.2); WHITE BLOOD COUNT (AUTO) 6.4 K/uL (4.3-11.0)
--- NOTE | 2022-03-29 07:30 | NUR ---
MS RN OPENING NOTES RECEIVED PATIENT AWAKE ON BED AND A/O X1. ON O2 AT 2LPM VIA NASAL CANNULA TOLERATING WELL. NO SOB NOTED. NOT IN DISTRESS. IN NO SIGNS OF PAIN OR DISCOMFORT AT THIS TIME VIA FLACC LEVEL OF PAIN. WITH IV ACCESS AT LEFT UPPER ARM MIDLINE G18 SALINE LOCKED, PATENT AND INTACT. SAFETY MEASURES IN PLACED. CALL LIGHT WITHIN REACH. BED ON LOWEST LOCKED POSITION, SIDE RAILS UP X2. WILL CONTINUE TO MONITOR.
[2022-03-29 07:46] LABS: CALCIUM, SERUM 9.7 mg/dL (8.5-10.1); POTASSIUM 3.7 mmol/L (3.5-5.1)
[2022-03-29 08:19] VITALS: BP 154/96
[2022-03-29] MEDS: METFORMIN 500 MG TABLET PO SCH ×2 (08:22→16:51)
[2022-03-29] MEDS: DONEPEZIL 5 MG TABLET PO SCH (08:22)
[2022-03-29] MEDS: VALSARTAN 80 MG TABLET PO SCH (08:22)
[2022-03-29] MEDS: METOPROLOL TARTRATE 25 MG TABLET PO SCH ×2 (08:23→16:51)
[2022-03-29] MEDS: CARBIDOPA/LEVODOPA 25/100 MG 1 UDTAB PO SCH ×3 (08:23→16:51)
[2022-03-29] MEDS: MEMANTINE HCL 5 MG TABLET PO SCH (08:23)
[2022-03-29] MEDS: PANTOPRAZOLE 40 MG/PACK PACK PO SCH (08:23)
[2022-03-29] MEDS: ASPIRIN EC 81 MG TABLET.DR PO SCH (08:23)
[2022-03-29] MEDS: ESCITALOPRAM OXALATE (10 MG) 10 MG TABLET PO SCH (08:23)
[2022-03-29] MEDS: ALLOPURINOL 100 MG TABLET PO SCH (08:23)
[2022-03-29] MEDS: ENOXAPARIN SODIUM 40 MG/0.4 ML DISP.SYRIN SQ SCH (08:24)
[2022-03-29 15:52] VITALS: BP 144/86
--- NOTE | 2022-03-29 18:24 | NUR ---
MS RN CLOSING NOTES PATIENT AWAKE ON BED AND A/O X1. ON O2 AT 2LPM VIA NASAL CANNULA TOLERATING WELL. NO SOB NOTED. NOT IN DISTRESS. IN NO SIGNS OF PAIN OR DISCOMFORT AT THIS TIME VIA FLACC LEVEL OF PAIN. WITH IV ACCESS AT LEFT UPPER ARM MIDLINE G18 SALINE LOCKED, PATENT AND INTACT. DUE MEDS GIVEN. SAFETY MEASURES IN PLACED. CALL LIGHT WITHIN REACH. BED ON LOWEST LOCKED POSITION, SIDE RAILS UP X2. WILL ENDORSE TO NEXT SHIFT FOR LINDA.
--- NOTE | 2022-03-29 19:30 | NUR ---
MS RN OPENING NOTES PATIENT AWAKE ON BED AND A/O X1. ON O2 AT 2LPM VIA NASAL CANNULA TOLERATING WELL. NO SOB NOTED. NOT IN DISTRESS. IN NO SIGNS OF PAIN OR DISCOMFORT AT THIS TIME VIA FLACC LEVEL OF PAIN. WITH IV ACCESS AT LEFT UPPER ARM MIDLINE G18 SALINE LOCKED, PATENT AND INTACT. SAFETY MEASURES IN PLACED. CALL LIGHT WITHIN REACH. BED ON LOWEST LOCKED POSITION, SIDE RAILS UP X2. WILL CONTINUE TO MONITOR.
[2022-03-29 20:00] VITALS: BP_SYST 101; BP_SYST 148; BP_DIAS 58; BP_DIAS 66
[2022-03-29] MEDS: SIMVASTATIN 20 MG TABLET PO SCH (21:33)
[2022-03-29 23:01] VITALS: BP 148/66
[2022-03-30] MEDS: ZOSYN IVPB 2.25 G in IV D5W 50ml IV SCH ×4 (05:08→23:42)
[2022-03-30] MEDS: BLOOD SUGAR DIAGNOSTIC 1 EACH STRIP IN SCH ×3 (05:29→18:07)
[2022-03-30] MEDS: INSULIN REGULAR, HUMAN 100 UNIT/ML 3 ML VIAL SQ PRN (05:29)
[2022-03-30 06:13] LABS: BASOPHILS % (AUTO) 0.8 % (0.0-2.0); HEMATOCRIT 33 % (33-45); HEMOGLOBIN 11.2 g/dL (11.5-14.8); LYMPHOCYTES # (AUTO) 1.3 K/uL (0.8-4.8); LYMPHOCYTES % (AUTO) 20.8 % (20.0-44.0); MEAN CORPUSCULAR HGB CONC 34 g/dl (31.0-36.0); MEAN CORPUSCULAR VOLUME 95 fL (82-100); MONOCYTES # (AUTO) 0.6 K/uL (0.1-1.30); NEUTROPHILS # (AUTO) 4.2 K/uL (1.8-8.9); NEUTROPHILS % (AUTO) 65.4 % (43.0-81.0); PLATELET COUNT (AUTO) 264 K/uL (150-450); RED BLOOD CELL COUNT(AUTO) 3.51 MIL/uL (4.0-5.2); WHITE BLOOD COUNT (AUTO) 6.4 K/uL (4.3-11.0)
[2022-03-30 06:26] LABS: CALCIUM, SERUM 9.9 mg/dL (8.5-10.1); CARBON DIOXIDE 25 mmol/L (21-32); CHLORIDE 103 mmol/L (98-107); CREATININE 1.1 mg/dL (0.6-1.3); GLUCOSE 84 mg/dL (74-106); POTASSIUM 3.6 mmol/L (3.5-5.1); SODIUM SERUM 139 mmol/L (136-145); UREA NITROGEN, BLOOD 13 mg/dL (7-18)
--- NOTE | 2022-03-30 06:34 | NUR ---
MS RN CLOSING NOTES PATIENT AWAKE ON BED AND A/O X1. ON O2 AT 2LPM VIA NASAL CANNULA TOLERATING WELL. NO SOB NOTED. NOT IN DISTRESS. IN NO SIGNS OF PAIN OR DISCOMFORT AT THIS TIME VIA FLACC LEVEL OF PAIN. WITH IV ACCESS AT LEFT UPPER ARM MIDLINE G18 SALINE LOCKED, PATENT AND INTACT. SAFETY MEASURES IN PLACED. ALL DUE MEDS GIVEN AND TOLERATED WELL. ALL NEEDS MET AT ALL TIMES KEPT CLEAN DRY AT ALL TIMES.CALL LIGHT WITHIN REACH. BED ON LOWEST LOCKED POSITION, SIDE RAILS UP X2. WILL ENDORSE CARE TO DAY SHIFT NURSE.
--- NOTE | 2022-03-30 07:30 | NUR ---
RN MS NOTES PT IN BED, ASLEEP, EASY TO AROUSE, ALERT TO SELF, WITH CONFUSION, NO SIGN OF PAIN OR DISTRESS, CALL LIGHT WITHIN REACH, ASSISTED WITH BREAKFAST, TOLERATES WELL, KEPT WARM AND COMFORTABLE IN BED.
[2022-03-30 08:00] VITALS: BP 147/88
[2022-03-30] MEDS: ESCITALOPRAM OXALATE (10 MG) 10 MG TABLET PO SCH (09:42)
[2022-03-30] MEDS: MEMANTINE HCL 5 MG TABLET PO SCH (09:44)
[2022-03-30] MEDS: VALSARTAN 80 MG TABLET PO SCH (09:44)
[2022-03-30] MEDS: CARBIDOPA/LEVODOPA 25/100 MG 1 UDTAB PO SCH ×3 (09:44→16:43)
[2022-03-30] MEDS: ASPIRIN EC 81 MG TABLET.DR PO SCH (09:45)
[2022-03-30] MEDS: DONEPEZIL 5 MG TABLET PO SCH (09:45)
[2022-03-30] MEDS: ALLOPURINOL 100 MG TABLET PO SCH (09:45)
[2022-03-30] MEDS: METFORMIN 500 MG TABLET PO SCH ×2 (09:46→16:43)
[2022-03-30] MEDS: METOPROLOL TARTRATE 25 MG TABLET PO SCH ×2 (09:46→16:44)
[2022-03-30] MEDS: PANTOPRAZOLE 40 MG/PACK PACK PO SCH (09:46)
[2022-03-30] MEDS: ENOXAPARIN SODIUM 40 MG/0.4 ML DISP.SYRIN SQ SCH (09:47)
[2022-03-30 15:50] VITALS: BP 120/80
--- NOTE | 2022-03-30 18:12 | NUR ---
RN MS NOTES PT IN BED, RESTING, NO SIGN OF PAIN OR DISTRESS, SEEN BY DR. NINO TODAY, ASSISTED WITH DINNER, DUE MEDS GIVEN ORDERED, PM CARE PROVIDED, ALL NEEDS ATTENDED.
--- NOTE | 2022-03-30 19:15 | NUR ---
MS RN OPENING NOTES: RECEIVED PATIENT IN BED, AWAKE,NO S/S OF DISTRESS NOTED. NO COMPLAIN OF PAIN. CALL LIGHT WITHIN REACH. BED ALARM ON. BED IN LOWEST AND LOCKED POSITION. HOB ELEVATED. WITH O2 AT 1L/MIN NASAL CANNULA. WITH MESSER CATHETER INTACT DRAINING CLEAR YELLOW URINE OUTPUT.
[2022-03-30 19:51] VITALS: BP 136/72
[2022-03-30] MEDS: SIMVASTATIN 20 MG TABLET PO SCH (21:52)
[2022-03-31] MEDS: INSULIN REGULAR, HUMAN 100 UNIT/ML 3 ML VIAL SQ PRN ×3 (00:09→23:49)
--- NOTE | 2022-03-31 00:10 | NUR ---
blood sugar checked=98, no insulin given.
[2022-03-31] MEDS: ZOSYN IVPB 2.25 G in IV D5W 50ml IV SCH ×4 (05:40→23:41)
[2022-03-31] MEDS: BLOOD SUGAR DIAGNOSTIC 1 EACH STRIP IN SCH ×5 (05:51→23:49)
--- NOTE | 2022-03-31 05:52 | NUR ---
BLOOD SUGAR CHECKED=85, NO INSULIN GIVEN.
[2022-03-31 06:11] LABS: BASOPHILS % (AUTO) 0.7 % (0.0-2.0); EOSINOPHILS % (AUTO) 3.3 % (0.0-6.0); HEMATOCRIT 32 % (33-45); HEMOGLOBIN 10.9 g/dL (11.5-14.8); LYMPHOCYTES # (AUTO) 1.2 K/uL (0.8-4.8); LYMPHOCYTES % (AUTO) 19.5 % (20.0-44.0); MEAN CORPUSCULAR HGB CONC 35 g/dl (31.0-36.0); MEAN CORPUSCULAR VOLUME 94 fL (82-100); MONOCYTES # (AUTO) 0.6 K/uL (0.1-1.30); MONOCYTES % (AUTO) 8.9 % (2.0-12.0); NEUTROPHILS # (AUTO) 4.3 K/uL (1.8-8.9); NEUTROPHILS % (AUTO) 67.6 % (43.0-81.0); PLATELET COUNT (AUTO) 273 K/uL (150-450); RED BLOOD CELL COUNT(AUTO) 3.37 MIL/uL (4.0-5.2); WHITE BLOOD COUNT (AUTO) 6.4 K/uL (4.3-11.0)
[2022-03-31 06:27] LABS: CALCIUM, SERUM 9.8 mg/dL (8.5-10.1); CARBON DIOXIDE 28 mmol/L (21-32); CHLORIDE 104 mmol/L (98-107); CREATININE 1.2 mg/dL (0.6-1.3); GLUCOSE 89 mg/dL (74-106); POTASSIUM 3.5 mmol/L (3.5-5.1); SODIUM SERUM 141 mmol/L (136-145); UREA NITROGEN, BLOOD 16 mg/dL (7-18)
--- NOTE | 2022-03-31 07:30 | NUR ---
RN MS NOTES PT IN BED, AWAKE, ALERT TO SELF, NO SIGN OF PAIN OR DISTRESS, CALL LIGHT WITHIN REACH, F/C IN PLACE AND DRAINING WELL WITH CLEAR, YELLOW URINE, KEPT COMFORTABLE IN BED.
[2022-03-31 08:00] VITALS: BP 149/69
[2022-03-31] MEDS: METFORMIN 500 MG TABLET PO SCH ×2 (09:07→17:12)
[2022-03-31] MEDS: DONEPEZIL 5 MG TABLET PO SCH (09:07)
[2022-03-31] MEDS: PANTOPRAZOLE 40 MG/PACK PACK PO SCH (09:07)
[2022-03-31] MEDS: CARBIDOPA/LEVODOPA 25/100 MG 1 UDTAB PO SCH ×3 (09:07→17:12)
[2022-03-31] MEDS: MEMANTINE HCL 5 MG TABLET PO SCH (09:08)
[2022-03-31] MEDS: ASPIRIN EC 81 MG TABLET.DR PO SCH (09:08)
[2022-03-31] MEDS: ALLOPURINOL 100 MG TABLET PO SCH (09:08)
[2022-03-31] MEDS: VALSARTAN 80 MG TABLET PO SCH (09:09)
[2022-03-31] MEDS: ESCITALOPRAM OXALATE (10 MG) 10 MG TABLET PO SCH (09:09)
[2022-03-31] MEDS: METOPROLOL TARTRATE 25 MG TABLET PO SCH ×2 (09:24→17:12)
[2022-03-31] MEDS: ENOXAPARIN SODIUM 40 MG/0.4 ML DISP.SYRIN SQ SCH (09:26)
[2022-03-31 16:00] VITALS: BP 130/72
--- NOTE | 2022-03-31 18:08 | NUR ---
RN MS NOTES PT IN BED, AWAKE, NO SIGN OF PAIN, RESPIRATIONS NORMAL, ASSISTED WITH DINNER, TOLERATES CURRENT DIET, PM MEDS GIVEN ORDERED, PM CARE PROVIDED, ALL NEEDS ATTENDED.
--- NOTE | 2022-03-31 19:15 | NUR ---
MS RN OPENING NOTES: RECEIVED PATIENT IN BED, AWAKE, CALM, NO S/S OF DISTRESS NOTED. NO COMPLAIN OF PAIN. CALL LIGHT WITHIN REACH. BED ALARM ON. BED IN LOWEST AND LOCKED POSITION. HOB ELEVATED AT ALL TIMES. HEELS OFFLOADED AT ALL TIMES. WITH O2 AT 1L/MIN.
[2022-03-31 20:00] VITALS: BP 141/71
[2022-03-31] MEDS: SIMVASTATIN 20 MG TABLET PO SCH (22:13)
[2022-04-01] MEDS: BLOOD SUGAR DIAGNOSTIC 1 EACH STRIP IN SCH ×3 (05:48→17:42)
[2022-04-01] MEDS: INSULIN REGULAR, HUMAN 100 UNIT/ML 3 ML VIAL SQ PRN (05:50)
--- NOTE | 2022-04-01 05:50 | NUR ---
blood sugar checked=85, no insulin given.
[2022-04-01 05:52] LABS: BASOPHILS # (AUTO) 0.1 K/uL (0.0-0.2); BASOPHILS % (AUTO) 0.9 % (0.0-2.0); EOSINOPHILS % (AUTO) 3.7 % (0.0-6.0); HEMATOCRIT 33 % (33-45); LYMPHOCYTES # (AUTO) 1.3 K/uL (0.8-4.8); LYMPHOCYTES % (AUTO) 20.3 % (20.0-44.0); MEAN CORPUSCULAR HGB CONC 34 g/dl (31.0-36.0); MEAN CORPUSCULAR VOLUME 96 fL (82-100); MONOCYTES # (AUTO) 0.5 K/uL (0.1-1.30); MONOCYTES % (AUTO) 7.8 % (2.0-12.0); NEUTROPHILS # (AUTO) 4.3 K/uL (1.8-8.9); NEUTROPHILS % (AUTO) 67.3 % (43.0-81.0); PLATELET COUNT (AUTO) 254 K/uL (150-450); RED BLOOD CELL COUNT(AUTO) 3.42 MIL/uL (4.0-5.2); WHITE BLOOD COUNT (AUTO) 6.4 K/uL (4.3-11.0)
[2022-04-01] MEDS: ZOSYN IVPB 2.25 G in IV D5W 50ml IV SCH ×2 (05:54→12:06)
[2022-04-01 06:08] LABS: CALCIUM, SERUM 9.5 mg/dL (8.5-10.1); CARBON DIOXIDE 27 mmol/L (21-32); CHLORIDE 103 mmol/L (98-107); CREATININE 1.2 mg/dL (0.6-1.3); GLUCOSE 87 mg/dL (74-106); POTASSIUM 3.6 mmol/L (3.5-5.1); SODIUM SERUM 139 mmol/L (136-145); UREA NITROGEN, BLOOD 15 mg/dL (7-18)
--- NOTE | 2022-04-01 07:47 | NUR ---
RN OPENING NOTE PATIENT RECEIVED IN BED, AO X 1. ABLE TO RESPONDS ALL STIMULI. IN NO ACUTE DISTRESS NOTED. RESPIRATORY EVEN AND UNLABORED ON OXYGEN AT 1L VIA NC. SKIN IS WARM TO TOUCH, KEEP CLEAN/DRY. KEPT ELEVATED HOB FOR ENSURE AIRWAY AND ASPIRATION PRECAUTION, ALSO LOWEST POSITION OF THE BED, S/R UP X 3, BED ALARM IS ON AT ALL THE TIMES. ALL SAFETY PRECAUTION APPLIED. CALL LIGHT WITHIN REACH, WILL CONTINUE TO MONITOR.
[2022-04-01 08:00] VITALS: BP 130/80
[2022-04-01] MEDS: ASPIRIN EC 81 MG TABLET.DR PO SCH (08:09)
[2022-04-01] MEDS: DONEPEZIL 5 MG TABLET PO SCH (08:09)
[2022-04-01] MEDS: CARBIDOPA/LEVODOPA 25/100 MG 1 UDTAB PO SCH ×3 (08:10→17:42)
[2022-04-01] MEDS: MEMANTINE HCL 5 MG TABLET PO SCH (08:10)
[2022-04-01] MEDS: METFORMIN 500 MG TABLET PO SCH ×2 (08:10→17:42)
[2022-04-01] MEDS: PANTOPRAZOLE 40 MG/PACK PACK PO SCH (08:10)
[2022-04-01] MEDS: ALLOPURINOL 100 MG TABLET PO SCH (08:10)
[2022-04-01] MEDS: METOPROLOL TARTRATE 25 MG TABLET PO SCH ×2 (08:11→17:42)
[2022-04-01] MEDS: ESCITALOPRAM OXALATE (10 MG) 10 MG TABLET PO SCH (08:11)
[2022-04-01] MEDS: VALSARTAN 80 MG TABLET PO SCH (08:12)
[2022-04-01] MEDS: ENOXAPARIN SODIUM 40 MG/0.4 ML DISP.SYRIN SQ SCH (08:13)
[2022-04-01 09:16] VITALS: BP 113/67
--- NOTE | 2022-04-01 15:52 | NUR ---
PATIENT DISCHARGE TO HOME WITH HOSPICE CARE, GIVEN REPORT [facility].
[2022-04-01 16:00] VITALS: BP 134/67
--- NOTE | 2022-04-01 18:00 | NUR ---
RN CLOSE NOTE PATIENT IN BED. IN NO ACUTE DISTRESS OBSERVED. RESPIRATION EVEN AND UNLABORED ON OXYGEN AT 1L. SKIN IS WARM TO TOUCH KEEP CLEAN/DRY. 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 KEPT ELEVATED HOB FOR ASPIRATION PRECAUTION AND ENSURE AIR WAY, ALSO LOWEST POSITION OF THE BED FOR SAFETY. CALL LIGHT WITHIN REACH, WILL ENDORSE TO FIBERGLASS FINISHER.
--- NOTE | 2022-04-01 19:30 | NUR ---
MS RN OPENING NOTE PATIENT IN BED WITH EYES OPEN, ALERT/ORIENTED X 1. PATIENT STABLE ON 1 LPM OF OXYGEN VIA NASAL CANNULA, NO S/S OF RESPIRATORY DISTRESS OR SOB NOTED, BREATHING EVEN AND UNLABORED. MESSER CATHETER IN PLACE DRAINING YELLOW URINE. IV ACCESS ON RIGHT FOREARM INTACT AND SALINE LOCKED. PATIENT TO BE PICKED UP FOR DISCHARGE HOME WITH [facility] @ 2000 PER DAYSHIFT NURSE. SAFETY MEASURES IN PLACE: CALL LIGHT WITHIN REACH, SIDE RAILS UP X 3, BED LOCKED IN LOWEST POSITION, HOB ELEVATED, BED ALARM ON. WILL CONTINUE TO MONITOR PATIENT
[2022-04-01 20:00] VITALS: BP 128/67
--- NOTE | 2022-04-01 20:59 | NUR ---
MS MARKET MAKER NOTE PATIENT PICKED UP FOR DISCHARGE HOME ON [facility]. PATIENT IN STABLE CONDITION. NO S/S OF DISTRESS OR SOB NOTED, BREATHING EVEN AND UNLABORED, ON 1 LPM OF OXYGEN VIA NASAL CANNULA. MESSER CATHETER REMOVED WITH OUTPUT OF 250 ML. RIGHT FOREARM IV ACCESS REMOVED, MINIMAL BLEEDING, PRESSURE/DRESSING APPLIED. PATIENT HYGIENE PROVIDED AND DIAPER PLACED ON PATIENT, PATIENT CHANGED INTO PERSONAL CLOTHING PER FAMILY REQUEST. DISCHARGE PAPERS GIVEN TO EMT'S.
== END 2022-04-01 21:00 | disposition hospice, home (50) | DRG 871 ==
LOC: ER 09:16 → ICU 11:04 → TELE 03-25 15:42 → MED 03-27 10:43
PROVIDERS: ADMIT Legal Medicine; ATTEND Legal Medicine
PROC: 5A1945Z Respiratory Ventilation, 24-96 Consecutive Hours (ICD-10-PCS; principal; 2022-03-22)
PROC: 0BH18EZ Insertion of Endotracheal Airway into Trachea, Via Natural or Artificial Opening Endoscopic (ICD-10-PCS; 2022-03-22)
PROC: 05HC33Z Insertion of Infusion Device into Left Basilic Vein, Percutaneous Approach (ICD-10-PCS; 2022-03-26)
DX: A41.9 Sepsis, unspecified organism (principal); J96.01 Acute respiratory failure with hypoxia; I46.9 Cardiac arrest, cause unspecified; G92.8 Other toxic encephalopathy; N17.0 Acute kidney failure with tubular necrosis; J69.0 Pneumonitis due to inhalation of food and vomit; E87.2 Acidosis; J98.11 Atelectasis; I48.91 Unspecified atrial fibrillation; Z20.822 Contact with and (suspected) exposure to COVID-19; F02.80 Dementia in other diseases classified elsewhere, unspecified severity, without behavioral disturbance, psychotic disturbance, mood disturbance, and anxiety; G20 Parkinson's disease; G30.9 Alzheimer's disease, unspecified; I25.10 Atherosclerotic heart disease of native coronary artery without angina pectoris; E78.5 Hyperlipidemia, unspecified; E11.65 Type 2 diabetes mellitus with hyperglycemia; H55.00 Unspecified nystagmus; F09 Unspecified mental disorder due to known physiological condition; K21.9 Gastro-esophageal reflux disease without esophagitis; Z79.82 Long term (current) use of aspirin; Z79.899 Other long term (current) drug therapy; Z79.84 Long term (current) use of oral hypoglycemic drugs; E88.09 Other disorders of plasma-protein metabolism, not elsewhere classified; K56.41 Fecal impaction; K80.20 Calculus of gallbladder without cholecystitis without obstruction; I10 Essential (primary) hypertension
CPT/HCPCS: 31720; 36410; 36415; 36600; 70450-TC; 71045-TC; 74018; 80048-TC; 80053-TC; 80061-TC; 80076-TC; 80202-TC; 81001; 82803-TC; 82962-TC; 83605-TC; 83735-TC; 84100-TC; 84484-TC; 85025-TC; 85730-TC; 87040-TC; 87081-TC; 87086-TC; 92526; 92611-TC; 93307-TC; 94002-TC; 94003-TC; 94760-TC; 94799-TC; 97110-TC; 97530-TC; 99082-TC; C1751; C9113; G0378; J0171; J0461; J1160; J1650; J1815; J2270; J2370; J2543; J3370; J3475; J3480; J3490; J7030; J7050; J7060

== ENCOUNTER 2023-12-15 06:22 | Inpatient (IN) | payer MEDICARE, OTHER ==
[~2023-12-15] VITALS: Ht 154.9 cm; Wt 56.7 kg
[~2023-12-15 06:22] MED LIST changes: +ACET-2605 PO; +DIPH25CA51 PO; +ERGO500093 PO; +ESCI10TA PO; +HYDR453.3 TP; +LORA-258 PO
[2023-12-15] MEDS: IV NS 0.9% 1,000 ML BAG IV ONE ×2 (06:54→08:26)
[2023-12-15 07:35] LABS: BASOPHILS % (AUTO) 0.3 % (0.0-2.0); HEMATOCRIT 42 % (33-45); HEMOGLOBIN 13.6 g/dL (11.5-14.8); LYMPHOCYTES # (AUTO) 2.6 K/uL (0.8-4.8); LYMPHOCYTES % (AUTO) 17.4 % (20.0-44.0); MEAN CORPUSCULAR HEMOGLOBIN 32 PG (26.0-33.0); MEAN CORPUSCULAR HGB CONC 32 g/dl (31.0-36.0); MEAN CORPUSCULAR VOLUME 99 fL (82-100); MONOCYTES # (AUTO) 0.8 K/uL (0.1-1.30); MONOCYTES % (AUTO) 5.5 % (2.0-12.0); NEUTROPHILS # (AUTO) 11.7 K/uL (1.8-8.9); NEUTROPHILS % (AUTO) 76.8 % (43.0-81.0); PLATELET COUNT (AUTO) 347 K/uL (150-450); RED BLOOD CELL COUNT(AUTO) 4.24 MIL/uL (4.0-5.2); WHITE BLOOD COUNT (AUTO) 15.3 K/uL (4.3-11.0)
[2023-12-15 07:46] LABS: CARBON DIOXIDE 26 mmol/L (21-32); CHLORIDE 112 mmol/L (98-107); CREATININE 1.2 mg/dL (0.6-1.3); GLUCOSE 128 mg/dL (74-106); POTASSIUM 4.3 mmol/L (3.5-5.1); SODIUM SERUM 153 mmol/L (136-145); UREA NITROGEN, BLOOD 30 mg/dL (7-18)
[2023-12-15 07:51] LABS: APPEARANCE,URINE TURBID (CLEAR); BILIRUBIN,URINE 2+ (NEGATIVE); BLOOD, URINE 2+ Ery/uL (NEGATIVE); COLOR,URINE BROWN (YELLOW); KETONES,URINE TRACE mg/dL (NEGATIVE); LEUKOCYTE ESTERASE ,URINE 2+ (NEGATIVE); NITRITE, URINE POSITIVE (NEGATIVE); PH,URINE 5.5 (5.0-8.0); PROTEIN,URINE 2+ mg/dl (NEGATIVE); UGLUCOSE NEGATIVE (NEGATIVE)
[2023-12-15 07:52] LABS: ALANINE AMINOTRANSFERASE 16 U/L (12-78); ALBUMIN 3.5 g/dL (3.4-5.0); ALKALINE PHOSPHATASE 33 U/L (46-116); ASPARTATE AMINOTRANSFERASE 32 U/L (15-37); BILIRUBIN,DIRECT 0.2 mg/dL (0.0-0.2); BILIRUBIN,TOTAL 0.6 mg/dL (0.2-1.0); TOTAL PROTEIN, SERUM 7.6 g/dL (6.4-8.2)
[2023-12-15 07:53] LABS: INR 1.25 (0.91-1.10); PARTIAL THROMBOPLASTIN TIME 24.5 SEC (24.3-34.3); PROTHROMBIN TIME 13.1 SECS (9.2-11.1)
[2023-12-15 08:00] LABS: LACTIC ACID 2.8 mmol/L (0.4-2.0)
[2023-12-15 08:03] LABS: ADD URINE CULTURE YES; BACTERIA,URINE Moderate /HPF (None Seen); SQUAMOUS EPITHELIAL CELL,UR Rare /HPF (None Seen); WBC,URINE TOO NUMEROUS TO COUN /HPF (0-3)
[2023-12-15] MEDS ORDERED: DILTIAZEM HCL 50 MG IV ONE (08:20)
[2023-12-15] MEDS ORDERED: CEFTRIAXONE 1GM BAG (ER ONLY) 50 ML IV ONE (08:20)
[2023-12-15] MEDS: CEFTRIAXONE 1GM BAG (ER ONLY) 1 GM/50 ML PIGGYBACK IV ONE (08:26)
[2023-12-15] MEDS: DILTIAZEM HCL 50 MG IV IV ONE ×2 (08:29→16:03)
[2023-12-15] MEDS ORDERED: DONE10TA44 PO (11:27)
[2023-12-15] MEDS ORDERED: DIPH25CA83 PO (11:27)
[2023-12-15] MEDS ORDERED: ASPI-1169 PO (11:27)
[2023-12-15] MEDS ORDERED: METO25TA6 PO (11:27)
[2023-12-15] MEDS ORDERED: CARB1TAB21 PO (11:27)
[2023-12-15] MEDS ORDERED: METF-440 PO (11:27)
[2023-12-15] MEDS ORDERED: LORA-258 PO (11:28)
[2023-12-15] MEDS ORDERED: BUDE10.2 IH (11:28)
[2023-12-15] MEDS ORDERED: DIPH28.34 TP (11:28)
[2023-12-15] MEDS ORDERED: ASCO-352 PO (11:28)
[2023-12-15] MEDS ORDERED: LOPE2CAP14 PO (11:28)
[2023-12-15] MEDS ORDERED: MEGE40TA5 PO (11:28)
[2023-12-15] MEDS ORDERED: HYDR28.316 RC (11:28)
[2023-12-15] MEDS ORDERED: ACET-73 PO (11:28)
[2023-12-15] MEDS ORDERED: GEL100GE MC (11:28)
[2023-12-15] MEDS ORDERED: SENN-261 PO (11:28)
[2023-12-15 14:30] VITALS: BP 129/89; TEMP 98.2; O2SAT 97
[2023-12-15 16:00] VITALS: BP 108/88; TEMP 98.2; O2SAT 97
[2023-12-15] MEDS ORDERED: ZOLPIDEM TARTRATE 5 MG TABLET PO PRN (16:00)
[2023-12-15] MEDS ORDERED: Z GUARD REMEDY 4 OZ OINT TP PRN (16:00)
[2023-12-15] MEDS ORDERED: MAGNESIUM HYDROXIDE 30 ML UDC PO PRN (16:00)
[2023-12-15] MEDS ORDERED: DILTIAZEM HCL IV 125 MG in IV NS 0.9% 100 ML IV PRN (16:00)
[2023-12-15] MEDS ORDERED: MAG HYDROX/AL HYDROX/SIMETH 30 ML UDC PO PRN (16:00)
[2023-12-15] MEDS ORDERED: ONDANSETRON HCL/PF 4 MG/2 ML VIAL IVP PRN (16:00)
[2023-12-15] MEDS ORDERED: DEXTROSE 50%-WATER 50 ML DISP.SYRIN IV PRN (16:30)
[2023-12-15] MEDS: ASPIRIN 81 MG TAB.CHEW PO SCH (17:00)
[2023-12-15] MEDS: CARBIDOPA/LEVODOPA 25/100 MG 1 UDTAB PO SCH (17:00)
[2023-12-15] MEDS: SENNOSIDES 8.6 MG TABLET PO SCH (17:00)
[2023-12-15] MEDS: IV NS 0.9% 1,000 ML IV PRN (17:08)
[2023-12-15] MEDS: CEFTRIAXONE 1 G in IV D5W 50 ML IV SCH (17:09)
[2023-12-15] MEDS: ENOXAPARIN SODIUM 30 MG/0.3 ML DISP.SYRIN SQ SCH (18:03)
[2023-12-15] MEDS: INSULIN REGULAR, HUMAN 100 UNIT/ML 3 ML VIAL SQ PRN (18:21)
[2023-12-15] MEDS: BLOOD SUGAR DIAGNOSTIC 1 EACH STRIP IN SCH (18:21)
[2023-12-15 20:00] VITALS: BP 122/71; TEMP 98.4; O2SAT 98
[2023-12-15] MEDS ORDERED: SIMVASTATIN 20 MG TABLET PO SCH (22:00)
[2023-12-16] VITALS (45 sets, daily range): BP systolic 97–142; BP diastolic 57–97; TEMP 97.9–98; O2SAT 95–99
[2023-12-16 07:11] LABS: BASOPHILS % (AUTO) 0.3 % (0.0-2.0); EOSINOPHILS # (AUTO) 0.1 K/uL (0.0-0.7); EOSINOPHILS % (AUTO) 0.8 % (0.0-6.0); HEMATOCRIT 37 % (33-45); LYMPHOCYTES # (AUTO) 2.1 K/uL (0.8-4.8); LYMPHOCYTES % (AUTO) 18.5 % (20.0-44.0); MEAN CORPUSCULAR HEMOGLOBIN 33 PG (26.0-33.0); MEAN CORPUSCULAR HGB CONC 33 g/dl (31.0-36.0); MEAN CORPUSCULAR VOLUME 100 fL (82-100); MONOCYTES # (AUTO) 0.6 K/uL (0.1-1.30); MONOCYTES % (AUTO) 5.2 % (2.0-12.0); NEUTROPHILS # (AUTO) 8.4 K/uL (1.8-8.9); NEUTROPHILS % (AUTO) 75.2 % (43.0-81.0); PLATELET COUNT (AUTO) 264 K/uL (150-450); RED CELL DISTRIBUTION WIDTH 15.9 % (11.5-15.0); WHITE BLOOD COUNT (AUTO) 11.1 K/uL (4.3-11.0)
[2023-12-16 07:59] LABS: CARBON DIOXIDE 21 mmol/L (21-32); CHLORIDE 115 mmol/L (98-107); CREATININE 0.6 mg/dL (0.6-1.3); GLUCOSE 94 mg/dL (74-106); MAGNESIUM 2.1 mg/dL (1.8-2.4); PHOSPHORUS 2.6 mg/dL (2.5-4.9); POTASSIUM 3.3 mmol/L (3.5-5.1); SODIUM SERUM 150 mmol/L (136-145); UREA NITROGEN, BLOOD 20 mg/dL (7-18)
[2023-12-16] MEDS: FENOFIBRATE NANOCRYS (145 MG) 145 MG TABLET PO SCH (08:09)
[2023-12-16] MEDS: MEGESTROL ACETATE 40 MG TABLET PO SCH (08:09)
[2023-12-16] MEDS: ESCITALOPRAM OXALATE (10 MG) 10 MG TABLET PO SCH (08:09)
[2023-12-16] MEDS: PANTOPRAZOLE 40 MG VIAL IV SCH (08:09)
[2023-12-16] MEDS: ASCORBIC ACID 500 MG TABLET PO SCH (08:09)
[2023-12-16] MEDS: METOPROLOL TARTRATE 25 MG TABLET PO SCH (08:12)
[2023-12-16 08:21] LABS: CHOLESTEROL 121 mg/dL (<200); HDL CHOLESTEROL 17 mg/dL (40-60); LDL 70 mg/dL (0-99); THYROID STIMULATING HORMONE 1.232 uIU/mL (0.358-3.74); TRIGLYCERIDES 202 mg/dL (30-150)
[2023-12-16] MEDS: POTASSIUM CHLORIDE 20 MEQ POWDER PACKET PO SCH (11:48)
[2023-12-16] MEDS: DILTIAZEM HCL IV 125 MG in IV NS 0.9% 100 ML IV PRN (13:53)
[2023-12-16] MEDS ORDERED: NS 0.9% IV PRN (14:30)
[2023-12-16] MEDS ORDERED: DILTIAZEM HCL IV PRN (14:30)
[2023-12-16] MEDS: IV D5W 1,000 ML IV ONE (18:25)
[2023-12-16] MEDS: CEFEPIME 1 GM in IV D5W 50 ML IV SCH (21:17)
[2023-12-17] VITALS (63 sets, daily range): BP systolic 100–134; BP diastolic 57–87; TEMP 97.6–99; O2SAT 96–99
[2023-12-17 05:15] LABS: BASOPHILS % (AUTO) 0.3 % (0.0-2.0); EOSINOPHILS # (AUTO) 0.2 K/uL (0.0-0.7); EOSINOPHILS % (AUTO) 2.3 % (0.0-6.0); HEMATOCRIT 35 % (33-45); HEMOGLOBIN 11.8 g/dL (11.5-14.8); LYMPHOCYTES # (AUTO) 2.7 K/uL (0.8-4.8); LYMPHOCYTES % (AUTO) 26.9 % (20.0-44.0); MEAN CORPUSCULAR HEMOGLOBIN 34 PG (26.0-33.0); MEAN CORPUSCULAR HGB CONC 34 g/dl (31.0-36.0); MEAN CORPUSCULAR VOLUME 98 fL (82-100); MONOCYTES # (AUTO) 0.5 K/uL (0.1-1.30); MONOCYTES % (AUTO) 4.6 % (2.0-12.0); NEUTROPHILS # (AUTO) 6.7 K/uL (1.8-8.9); NEUTROPHILS % (AUTO) 65.9 % (43.0-81.0); PLATELET COUNT (AUTO) 272 K/uL (150-450); RED BLOOD CELL COUNT(AUTO) 3.53 MIL/uL (4.0-5.2); RED CELL DISTRIBUTION WIDTH 15.8 % (11.5-15.0); WHITE BLOOD COUNT (AUTO) 10.1 K/uL (4.3-11.0)
[2023-12-17 05:41] LABS: CALCIUM, SERUM 8.8 mg/dL (8.5-10.1); CREATININE 0.6 mg/dL (0.6-1.3); MAGNESIUM 1.9 mg/dL (1.8-2.4); PHOSPHORUS 1.9 mg/dL (2.5-4.9); POTASSIUM 3.2 mmol/L (3.5-5.1)
[2023-12-17] MEDS: PANTOPRAZOLE 40 MG TABLET.DR PO SCH (08:45)
[2023-12-17] MEDS: METOPROLOL TARTRATE 50 MG TABLET PO SCH (08:45)
[2023-12-17] MEDS: POTASSIUM CHLORIDE 20 MEQ POWDER PACKET PO ONE (11:35)
[2023-12-17] MEDS: K PHOS NEUTRAL 250 MG TABLET PO ONE (16:23)
[2023-12-17] MEDS: ACETAMINOPHEN 325 MG TABLET PO PRN (22:05)
[2023-12-18] VITALS: BP_SYST 110; BP_SYST 118; BP_SYST 119; BP_DIAS 104; BP_DIAS 65; BP_DIAS 80; TEMP 97.9; TEMP 98.8; O2SAT 96; O2SAT 98
[2023-12-18 04:00] VITALS: BP 133/92; TEMP 97.9; O2SAT 98
[2023-12-18 07:55] LABS: BASOPHILS # (AUTO) 0.1 K/uL (0.0-0.2); BASOPHILS % (AUTO) 1.2 % (0.0-2.0); EOSINOPHILS # (AUTO) 0.3 K/uL (0.0-0.7); EOSINOPHILS % (AUTO) 2.8 % (0.0-6.0); HEMATOCRIT 38 % (33-45); HEMOGLOBIN 12.3 g/dL (11.5-14.8); LYMPHOCYTES # (AUTO) 2.1 K/uL (0.8-4.8); LYMPHOCYTES % (AUTO) 22.3 % (20.0-44.0); MEAN CORPUSCULAR HEMOGLOBIN 33 PG (26.0-33.0); MEAN CORPUSCULAR HGB CONC 33 g/dl (31.0-36.0); MEAN CORPUSCULAR VOLUME 100 fL (82-100); MONOCYTES # (AUTO) 0.4 K/uL (0.1-1.30); MONOCYTES % (AUTO) 4.2 % (2.0-12.0); NEUTROPHILS # (AUTO) 6.4 K/uL (1.8-8.9); NEUTROPHILS % (AUTO) 69.5 % (43.0-81.0); PLATELET COUNT (AUTO) 266 K/uL (150-450); RED BLOOD CELL COUNT(AUTO) 3.77 MIL/uL (4.0-5.2); WHITE BLOOD COUNT (AUTO) 9.2 K/uL (4.3-11.0)
[2023-12-18 08:00] VITALS: BP 128/98; TEMP 97.7; O2SAT 95
[2023-12-18 08:01] LABS: CALCIUM, SERUM 8.8 mg/dL (8.5-10.1); CARBON DIOXIDE 23 mmol/L (21-32); CHLORIDE 109 mmol/L (98-107); CREATININE 0.5 mg/dL (0.6-1.3); GLUCOSE 81 mg/dL (74-106); MAGNESIUM 1.7 mg/dL (1.8-2.4); PHOSPHORUS 2.6 mg/dL (2.5-4.9); POTASSIUM 3.7 mmol/L (3.5-5.1); SODIUM SERUM 142 mmol/L (136-145); UREA NITROGEN, BLOOD 11 mg/dL (7-18)
[2023-12-18] MEDS: MAGNESIUM OXIDE 400 MG TABLET PO ONE (11:19)
[2023-12-18 12:00] VITALS: BP 110/94; TEMP 97.7; O2SAT 98
[2023-12-18 16:00] VITALS: BP 128/79; TEMP 97.7; O2SAT 98
[2023-12-18 20:00] VITALS: BP 116/70; TEMP 98.2; O2SAT 97
[2023-12-19] VITALS: BP 112/89; TEMP 98.8; O2SAT 97
[2023-12-19 04:00] VITALS: BP 112/64; TEMP 98.8; O2SAT 97
[2023-12-19 07:06] LABS: BASOPHILS # (AUTO) 0.1 K/uL (0.0-0.2); BASOPHILS % (AUTO) 0.6 % (0.0-2.0); EOSINOPHILS # (AUTO) 0.4 K/uL (0.0-0.7); EOSINOPHILS % (AUTO) 3.1 % (0.0-6.0); HEMATOCRIT 37 % (33-45); HEMOGLOBIN 12.1 g/dL (11.5-14.8); LYMPHOCYTES # (AUTO) 2.6 K/uL (0.8-4.8); MEAN CORPUSCULAR HEMOGLOBIN 32 PG (26.0-33.0); MEAN CORPUSCULAR HGB CONC 32 g/dl (31.0-36.0); MEAN CORPUSCULAR VOLUME 98 fL (82-100); MONOCYTES # (AUTO) 0.5 K/uL (0.1-1.30); MONOCYTES % (AUTO) 4.1 % (2.0-12.0); NEUTROPHILS # (AUTO) 8.9 K/uL (1.8-8.9); NEUTROPHILS % (AUTO) 71.2 % (43.0-81.0); PLATELET COUNT (AUTO) 280 K/uL (150-450); RED CELL DISTRIBUTION WIDTH 15.5 % (11.5-15.0); WHITE BLOOD COUNT (AUTO) 12.5 K/uL (4.3-11.0)
[2023-12-19 07:40] LABS: CALCIUM, SERUM 9.1 mg/dL (8.5-10.1); CHLORIDE 105 mmol/L (98-107); CREATININE 0.5 mg/dL (0.6-1.3); GLUCOSE 85 mg/dL (74-106); MAGNESIUM 1.6 mg/dL (1.8-2.4); PHOSPHORUS 2.6 mg/dL (2.5-4.9); POTASSIUM 3.7 mmol/L (3.5-5.1); SODIUM SERUM 138 mmol/L (136-145); UREA NITROGEN, BLOOD 10 mg/dL (7-18)
[2023-12-19 07:58] LABS: CARBON DIOXIDE 24 mmol/L (21-32)
[2023-12-19 08:00] VITALS: BP 140/97; TEMP 98.3; O2SAT 98
[2023-12-19] MEDS: METOPROLOL TARTRATE 50 MG TABLET PO SCH (09:35)
[2023-12-19] MEDS: MAGNESIUM OXIDE 400 MG TABLET PO ONE (09:36)
[2023-12-19] MEDS ORDERED: DILT30TA14 PO (12:31)
[2023-12-19] MEDS ORDERED: METO50TA16 PO (12:31)
[2023-12-19] MEDS ORDERED: CEFE1PIG3 IV (12:32)
[2023-12-19 12:49] VITALS: BP 109/79
[2023-12-19] MEDS: DILTIAZEM HCL 30 MG TABLET PO SCH (12:49)
== END 2023-12-19 16:30 | DRG 871 ==
LOC: ER 06:33 → TELE1 13:28 → TELE-TD 16:29 → ICU 12-16 13:35 → TELE1 12-17 23:48
PROVIDERS: ADMIT Nurse Practitioner Acute Care; ATTEND Nurse Practitioner Acute Care
DX: A41.59 Other Gram-negative sepsis (principal); G93.41 Metabolic encephalopathy; I21.4 Non-ST elevation (NSTEMI) myocardial infarction; N17.0 Acute kidney failure with tubular necrosis; B37.49 Other urogenital candidiasis; E87.0 Hyperosmolality and hypernatremia; Z16.12 Extended spectrum beta lactamase (ESBL) resistance; E86.0 Dehydration; E66.01 Morbid (severe) obesity due to excess calories; E78.5 Hyperlipidemia, unspecified; E87.6 Hypokalemia; E87.8 Other disorders of electrolyte and fluid balance, not elsewhere classified; G20.A1 Parkinson's disease without dyskinesia, without mention of fluctuations; I10 Essential (primary) hypertension; G30.9 Alzheimer's disease, unspecified; I25.10 Atherosclerotic heart disease of native coronary artery without angina pectoris; K21.9 Gastro-esophageal reflux disease without esophagitis; F09 Unspecified mental disorder due to known physiological condition; R53.1 Weakness; E11.9 Type 2 diabetes mellitus without complications; F02.80 Dementia in other diseases classified elsewhere, unspecified severity, without behavioral disturbance, psychotic disturbance, mood disturbance, and anxiety; I48.91 Unspecified atrial fibrillation; Z79.84 Long term (current) use of oral hypoglycemic drugs; Z79.899 Other long term (current) drug therapy; Z86.74 Personal history of sudden cardiac arrest; B96.4 Proteus (mirabilis) (morganii) as the cause of diseases classified elsewhere
CPT/HCPCS: 36415; 70450-TC; 71045-TC; 80048-TC; 80061-TC; 80076-TC; 81001; 82962-TC; 83605-TC; 83735-TC; 84100-TC; 84443-TC; 84484-TC; 85025-TC; 85730-TC; 87040-TC; 87086-TC; 87186-TC; 92526; 92611-TC; 97112-TC; 97530-TC; A4223; C9113; G0378; J0692; J0696; J1650; J1815; J3490; J7030; J7050; J7060; J7070